=== PATIENT | male | born 1965 | race Caucasian/White ===

== ENCOUNTER 2018-03-17 18:11 | Inpatient (IN) ==
[2018-03-17] MEDS ORDERED: D50W SYRINGE ONE (18:42)
[2018-03-17] MEDS ORDERED: D50W SYRINGE IV ONE (18:50)
[2018-03-17] MEDS ORDERED: D5 NS 1,000 ML IV ONE (18:57)
[2018-03-17 19:14] LABS: BASO# 0.03 X1000 (0.0-0.2); BASO% 0.1 % (0.0-0.8); EOS# 0.03 X1000 (0.0-0.7); EOS% 0.1 % (0.0-10.0); HEMATOCRIT 24.2 % (42.0-52.0); IMM GRAN# 0.85 X1000 (0.0-0.04); IMM GRAN% 3.4 % (0.0-0.5); LYMPH# 3.25 X1000 (1.2-3.4); LYMPH% 13.1 % (20.5-51.1); MCH 27.6 PG (27-31); MCHC 33.1 g/dL (33-37); MCV 83.4 FL (81-99); MONO# 0.75 X1000 (0.11-0.59); MPV 8.9 FL (7.4-10.4); NEUT# 19.84 X1000 (1.4-6.5); NEUT% 80.3 % (42.2-75.2); PLT 339 X1000 (130-400); RDW 17.3 % (11.5-14.5); WBC 24.75 X1000 (4.8-10.8)
[2018-03-17] MEDS ORDERED: NS 1,000 ML ONE (19:26)
[2018-03-17 19:35] LABS: ANISOCYTOSIS 1+; BANDS 6 % (0-1); LYMPHS 19 % (21-51); MICROCYTOSIS OCCASIONAL; MONO 2 % (1-9); SEGS 73 % (42-75)
[2018-03-17] MEDS ORDERED: VANCOMYCIN 1 GM/NS 1 GM/250 ML IVPB IV ONE (19:40)
[2018-03-17] MEDS ORDERED: NS 1,000 ML IV ONE ×2 (19:55→20:18)
[2018-03-17 20:04] LABS: BASO# 0.01 X1000 (0.0-0.2); EOS# 0.02 X1000 (0.0-0.7); EOS% 0.1 % (0.0-10.0); HEMATOCRIT 21.7 % (42.0-52.0); HEMOGLOBIN 7.1 g/dL (14.0-18.0); IMM GRAN# 0.45 X1000 (0.0-0.04); LYMPH% 7.7 % (20.5-51.1); MCH 26.7 PG (27-31); MCHC 32.7 g/dL (33-37); MCV 81.6 FL (81-99); MONO# 0.66 X1000 (0.11-0.59); MPV 8.2 FL (7.4-10.4); NEUT# 19.32 X1000 (1.4-6.5); NEUT% 87.2 % (42.2-75.2); PLT 325 X1000 (130-400); RBC 2.66 XMIL (4.7-6.1); RDW 16.5 % (11.5-14.5); WBC 22.16 X1000 (4.8-10.8)
[2018-03-17 20:08] LABS: ALLEN TEST YES; BE -9.1 mmoll (-3.0-3.0); BLOOD TYPE ARTERIAL; HCO3-(ACT) 17.8 mmoll (20.0-26.0); METHB 1.1 % (0.0-1.5); O2(CT) 9.8 mL/dL (15.0-23.0); O2HB 94.7 % (95.0-99.0); PCO2(98.6) 22 mmHg (35-45); PO2(98.6) 110 mmHg (60-100); SAMPLE BLOOD; SAO2 95.8 % (95.0-100.0); THB 7.2 g/dL (11.5-17.4); pH(98.6) 7.42 (7.35-7.45)
[2018-03-17 20:09] LABS: INR 1.07; PROTIME 14.7 Seconds (11.0-16.0)
[2018-03-17 20:10] LABS: MODALITY CANNULA
[2018-03-17 20:10] LABS: PTT 45.8 Seconds (22.3-41.8)
[2018-03-17] MEDS: ZOSYN 3.375 GM in NS 50 ML IV SCH (20:15)
[2018-03-17 20:31] LABS: ALB/GLOB RATIO 0.6; ALBUMIN 1.9 g/dL (3.5-5.0); CALCIUM 7.9 mg/dL (8.8-10.2); CREATININE 2.2 mg/dL (0.7-1.2); POTASSIUM 4.3 mmol/L (3.5-5.1); TOTAL BILIRUBIN 0.18 mg/dL (0.20-1.00); TOTAL PROTEIN 5.1 g/dL (6.3-8.3)
--- NOTE | 2018-03-17 20:34 | Diag Imaging Result Doc PS360 ---
EXAM: CHEST-PORTABLE INDICATION: septic shock TECHNIQUE: One view COMPARISON: 07/22/2015 FINDINGS: Inspiration is slightly suboptimal. There are a few old rib fractures on the right. The lungs are grossly clear. There is no discrete pleural fluid collection or pneumothorax. The cardiomediastinal silhouette and central vasculature are grossly unremarkable. IMPRESSION: No evidence of acute pathology by plain radiograph. Electronically signed by Prince Shepherd 03/17/2018 8:31 PM
[2018-03-17 20:41] LABS: URINE SOURCE CATH
[2018-03-17 20:46] LABS: BILIRUBIN URINE NEGATIVE (NEGATIVE); BLOOD URINE TRACE (NEGATIVE); COLOR YELLOW; GLUCOSE URINE NEGATIVE (NEGATIVE); KETONE URINE NEGATIVE (NEGATIVE); LEUKOCYTES URINE NEGATIVE (NEGATIVE); NITRITE URINE NEGATIVE (NEGATIVE); PROTEIN URINE TRACE mg/dL (NEGATIVE); SP GRAVITY URINE 1.012; TURBIDITY URINE HAZY (CLEAR); UROBILINOGEN URINE NORMAL (NORMAL)
[2018-03-17 20:48] LABS: UR EPITHELIAL CELLS <10 /HPF (<10); URINE BACTERIA NEGATIVE /HPF; URINE RBC <10 /HPF (<10); URINE WBC <10 /HPF (<10)
--- NOTE | 2018-03-17 21:03 | PROVIDER DOCUMENTATION ---
This chart was entered by Che Gonzales Scribe, acting as scribe for Octavio Shea MD. HPI-General Adult - General Chief Complaint: Low Blood Sugar Stated Complaint: HYPOGYLCEMIA Time Seen by Provider: 03/17/18 19:35 Source: family Allergies/Adverse Reactions: Patient Allergies Allergy/AdvReac Type Severity Reaction Status Date / Time hydrocodone AdvReac Intermediate Unknown Verified 01/16/13 07:23 Home Medications: Home Medication List Medication Instructions Recorded Confirmed Last Taken Type Alprazolam [Xanax] 1 mg PO Q6H PRN PRN 07/11/12 07/11/12 01/15/13 19:00 History 1 Fenofibrate 160 mg PO DAILY 07/11/12 07/11/12 01/15/13 19:00 History 160 Omeprazole [Prilosec] 20 mg PO DAILY@0700 07/11/12 07/11/12 01/15/13 07:00 History 20 SIMVAstatin [Zocor] 80 mg PO QHS 07/11/12 07/11/12 01/15/13 19:00 History 80 Zolpidem [Ambien] 10 mg PO HS PRN PRN 07/11/12 07/11/12 07/10/12 History Aspirin 81 mg PO DAILY 07/12/12 07/12/12 01/09/13 History 81 Cholecalciferol (Vit D3) [Vitamin 5,000 unit PO DAILY 07/12/12 07/12/12 Unknown History D] Melatonin 3 mg PO QHS 07/12/12 07/12/12 Unknown History Multivitamin [Multi-Vitamin Daily] 1 each PO DAILY 07/12/12 07/12/12 01/15/13 07 :00 History 1 [place]-3 Fatty Acids [Fish Oil] 1,000 mg PO DAILY 07/12/12 07/12/12 Unknown History Phenobarbital 64.8 mg PO QHS 07/12/12 07/12/12 Unknown History Sertraline [Zoloft] 50 mg PO DAILY 07/12/12 07/12/12 01/15/13 19:00 History 50 Cinnamon Bark [Cinnamon] 500 mg PO DAILY 01/16/13 01/16/13 01/15/13 07:00 History 500 Psyllium Husk [Fiber Laxative] 1 tsp PO BID 01/16/13 01/16/13 01/15/13 07:00 History 1 - History of Present Illness -Gen Adult Nature of Presenting Problems: Pt is 52/m presenting to ED via EMS, has hx of brain abscess 7 yrs prior that left him unable to live or care for himself alone. His family is at bedside, reports that he started falling upon standing about 2 days prior, today he refused to eat and has become lethargic. Family called EMS and his blood sugar was 55. He is not at normal mentation and is in obvious pain per family. Location of Pain/Injury: reports: generalized, other (Pt is writhing in pain but cannot answer as to where at this time) Severity: reports: severe Onset/Duration: reports: this morning Timing: reports: still present Context/Activities at Onset: reports: none Modifying Factors: improves with: nothing Associated Symptoms: reports: weakness. denies: diarrhea, seizure, vomiting - Diabetes Related Context Context: reports: low blood sugar (55) Review of Systems - Adult - REVIEW OF SYSTEMS - ADULT ROS:: limited per condition Constitutional: denies: fever Eyes: reports: no symptoms reported Ears, Nose, Mouth & Throat: reports: no symptoms reported Cardiovascular: denies: edema Gastrointestinal: denies: diarrhea, vomiting Integumentary: reports: no symptoms reported Neurological: denies: tremors Psychiatric: reports: no symptoms reported Endocrine: reports: no symptoms reported Hematologic/Lymphatic: reports: no symptoms reported Allergic/Immunologic: reports: no symptoms reported All Other Systems: Reviewed and Negative Past History - Adult - PAST MEDICAL HISTORY-ADULT Review of Records: reports: Old Records Reviewed, Nursing Assessment Review, Medications Reviewed, Social history reviewed & non-contributory. - SOCIAL HISTORY Smoking: cigarettes, less than 1 pack/day Substance Use: none/never Alcohol Use Frequency: occasionally Living Situation: family Physical Exam-General - PHYSICAL EXAM-ADULT Initial Vital Signs Reviewed: Yes - CONSTITUTIONAL General Appearance: moderate distress, thin, lethargic - NECK Neck: non-tender, full range of motion, supple - RESPIRATORY Respiratory: lungs clear, normal breath sounds. negative: respiratory distress - CARDIOVASCULAR Cardiovascular: no edema, no gallop, no JVD, no murmur, tachycardia (106) - GASTROINTESTINAL (ABDOMEN) Abdominal Exam: normal bowel sounds, soft - LYMPHATIC Lymphatic: no adenopathy - MUSCULOSKELETAL Extremity: normal inspection - SKIN Integumentary: normal color, normal turgor, warm/dry - PSYCHIATRIC Psych/Mental Status: disoriented x 3, other (Pt is lethargic and writhing in bed , unable to answer questions and does not open eyes. reportedly not at normal mentation) Progress - PLAN OF CARE/RESULTS Progress/Plan/Lab Results: Vital Signs - 8 hr 03/17/18 18:56 Pulse Rate 106 H Respiratory Rate 18 Blood Pressure 127/54 O2 Sat by Pulse Oximetry 97 Laboratory Results - last 24 hr 03/17/18 03/17/18 03/17/18 18:34 18:45 18:55 WBC 24.75 H RBC 2.90 L Hgb 8.0 L Hct 24.2 L MCV 83.4 MCH 27.6 MCHC 33.1 RDW Std Deviation 17.3 H Plt Count 339 MPV 8.9 Immature Gran % (Auto) 3.4 H Neut % (Auto) 80.3 H Lymph % (Auto) 13.1 L Barton % (Auto) 3.0 Eos % (Auto) 0.1 Baso % (Auto) 0.1 Immature Gran # (Auto) 0.85 H Neut # (Auto) 19.84 H Lymph # (Auto) 3.25 Barton # (Auto) 0.75 H Eos # (Auto) 0.03 Baso # (Auto) 0.03 POC Glucose 34 L D 177 H D Orders Category Date Time Status Finger Stick Blood Sugar (ED) DIRECTED Care 03/17/18 18:51 Active Saline Loc NOW Care 03/17/18 18:52 Active Straight Catheterization ORDERED Care 03/17/18 18:[address] HEAD W/O CONTRAST [CT] Stat Exams 03/17/18 18:51 Ordered ABG [RESP] Routine Lab 03/17/18 18:52 Ordered BLOOD CULTURE [BLDCUL] Stat Lab 03/17/18 18:52 Ordered CBC WITH DIFF [HEME] Stat Lab 03/17/18 18:45 Results CBC WITH ELECTRONIC DIFF [HEME] Stat Lab 03/17/18 19:00 Ordered COMPREHENSIVE METABOLIC PANEL [CHEM] Stat Lab 03/17/18 18:53 Ordered COMPREHENSIVE METABOLIC PANEL [CHEM] Stat Lab 03/17/18 19:26 Ordered MAGNESIUM [CHEM] Stat Lab 03/17/18 19:00 Ordered PROTIME WITH INR [COAG] Stat Lab 03/17/18 19:00 Ordered PTT [COAG] Stat Lab 03/17/18 19:00 Ordered TROPONIN T Stat Lab 03/17/18 18:55 Ordered URINALYSIS W/POSS RFLX CULT [URINALYSIS] Stat Lab 03/17/18 18:55 Uncollected 0.9% Sodium Chloride Inj [Ns] 1,000 ml Med 03/17/18 19:26 Discontinued .ROUTE As Directed Dextrose 5%-0.9% NaCl Inj [D5 Ns] 1,000 ml Med 03/17/18 18:57 Active IV 150 mls/hr Dextrose 50% Syringe [D50w Syringe] Med 03/17/18 18:42 Discontinued 50 ml .ROUTE .STK-MED ONE Dextrose 50% Syringe [D50w Syringe] Med 03/17/18 18:50 Discontinued 50 ml IV NOW ONE EKG [EKG] Stat Ther 03/17/18 18:52 Ordered Result Diagrams: 03/17/18 19:39 03/17/18 19:39 - CONSULTS/PCP/HOSPITALIST Notification #1 *Consult/PCP/Hospitalist*: consult w/ Dr. Sorto, pt with be admited Time Discussed: 20:59 Consult Disposition: Will see in ED Departure - Departure Date of Disposition Decision: 03/17/18 Time of Disposition Decision: 21:02 DIAGNOSIS: Septic shock Disposition: ADMITTED INPATIENT 09 Certified Medical Emergency: Emergent Condition: Critical Referrals and Follow-Ups: Rama Gilliland MD [Primary Care Provider] - - Critical Care Note This patient required my direct & personal management of CC.: Yes Total Time (mins): 45 Critical Care Statement: This patient required my direct personal management to treat or rule out processes, the absence of which, could potentiallly result in sudden, clinically significant life or limb threatening deterioration. Attestation - Physician/ DAILY Attestation Patient care was provided by Advanced Practice Provider:: No The physician spent face to face time with patient:: Yes Advanced Practice Provider documentation review:: Supervising physician onsite and consulted in the evaluation and care of this patient. The physician did have a face to face encounter with the patient. This chart was documented by the indicated scribe, (Che Gonzales Scribe) and accurately reflects the services I performed and decisions made by me, Octavio Shea MD, as attested by the provider's signature.
[2018-03-17] MEDS ORDERED: VANCOMYCIN IV PER PHARMACY MISC SCH (23:50)
[2018-03-17] MEDS ORDERED: NS 1,000 ML IV SCH (23:50)
[2018-03-17] MEDS ORDERED: ZOSYN 3.375 GM in NS 50 ML IV SCH (23:50)
--- NOTE | 2018-03-18 01:42 | HISTORY AND PHYSICAL ---
PRIMARY CARE PHYSICIAN: Dr. Gilliland. CHIEF COMPLAINT: Altered mental status. HISTORY OF PRESENTING ILLNESS: A 52-year-old male with a history of brain abscess, hypertension, diabetes mellitus type 2 and hyperlipidemia, who was brought to the emergency department due to patient being altered and falling. Apparently, when emergency medical service arrived he was found that he was hypoglycemic. He was given D50 and brought to the emergency department. In the ED, he was evaluated. He continued to be altered and hypotensive. He had also elevated white blood cell count. It was suspected he was septic. Subsequently, he will require admission for further management. At the time of my examination, patient was moderately altered and most of the history is obtained from family member who denied he had any chest pain, shortness of breath, hemoptysis, melena, but thought that he was having some chills at home. PAST MEDICAL HISTORY: Includes brain abscess, hypertension, diabetes mellitus type 2, hyperlipidemia. PAST SURGICAL HISTORY: Brain surgery. ALLERGIES: Hydrocodone. CURRENT MEDICATIONS: As listed in the medication reconciliation sheet. SOCIAL HISTORY: Thirty-five pack years history of smoking. History of alcohol abuse in the past. No history of illicit drug use. FAMILY HISTORY: No history of coronary artery disease. REVIEW OF SYSTEMS: Limited due to patient being altered. PHYSICAL EXAMINATION: GENERAL: The patient is somewhat restless and altered. VITAL SIGNS: Pulse 110, respirations 36, blood pressure 127/54. HEENT: Atraumatic, normocephalic. NECK: No masses. CHEST: Clear to auscultation. CARDIOVASCULAR: Regular rate and rhythm. ABDOMEN: Soft. Positive bowel sounds. EXTREMITIES: No edema. NEUROLOGIC: He is altered. GENITOURINARY: No bladder distention. SKIN: Warm. LABORATORIES AND STUDIES: Sodium 137, potassium 4.3, chloride 103, CO2 is 14, BUN is 66, creatinine is 2.2. Glucose was initially 34, now 109. WBCs 24.75, hemoglobin 8.0, hematocrit 24.2, platelets 339,000. UA is negative for leukocytes. Chest x-ray, no evidence of any acute pathology. ASSESSMENT: A 52-year-old male with a history of brain abscess, hypertension, diabetes mellitus type 2 and hyperlipidemia, brought to the emergency department due to patient being altered. He was initially found to be hypoglycemic. He was given D50. He was brought to the emergency department where he was evaluated and it was thought that possibly he was septic. Subsequently, he will need admission for further management. 1. Altered mental status. 2. Sepsis. 3. Hypotension. 4. Acute kidney injury. 5. Diabetes mellitus type 2 with hyperglycemia. PLAN: 1. We will admit patient to ICU. 2. We will continue with neuro checks and still awaiting CT of the head. 3. We will check blood cultures. Start patient on IV antibiotics. 4. We will continue with IV fluids and start pressors as needed. 5. We will monitor his renal function closely. 6. We will monitor blood glucose closely. 7. Put patient on DVT prophylaxis with SCD. 8. I discussed with of the patient's family member that his condition is guarded. 9. We will continue to follow and reassess and make further recommendation based on patient's clinical course. cc: Maxwell Sorto MD MTDD
[2018-03-18] MEDS ORDERED: VANCOMYCIN 750 MG in NS 250 ML IV ONE (02:30)
[2018-03-18] MEDS: ZOSYN 3.375 GM in NS 50 ML IV SCH ×4 (02:45→19:28)
[2018-03-18] MEDS ORDERED: D5 NS 1,000 ML IV SCH ×2 (04:00→04:15)
[2018-03-18 06:18] LABS: HEMATOCRIT 22.2 % (42.0-52.0); HEMOGLOBIN 7.2 g/dL (14.0-18.0); MCH 27.5 PG (27-31); MCHC 32.4 g/dL (33-37); MCV 84.7 FL (81-99); MPV 8.9 FL (7.4-10.4); RBC 2.62 XMIL (4.7-6.1); RDW 17.2 % (11.5-14.5); WBC 16.31 X1000 (4.8-10.8)
[2018-03-18 06:36] LABS: CALCIUM 7.8 mg/dL (8.8-10.2); CREATININE 1.5 mg/dL (0.7-1.2); POTASSIUM 3.6 mmol/L (3.5-5.1)
--- NOTE | 2018-03-18 09:46 | Diag Imaging Result Doc PS360 ---
EXAM: CT HEAD W/O CONTRAST INDICATION: altered mental TECHNIQUE: This exam was performed using automated exposure control, adjustment of mA or kV according to patient size, and/or use of iterative reconstruction technique. COMPARISON: 07/11/2012 FINDINGS: There is stable left occipital encephalomalacia. There is minimal age-appropriate diffuse brain atrophy that may have advanced slightly during the interval. There is no definite acute infarct given the limited sensitivity of CT versus MRI. There is no discrete intracranial mass, mass effect, or intracranial hemorrhage. The surrounding soft tissues and bony structures are essentially unremarkable. IMPRESSION: Chronic appearing intracranial changes as described but no evidence of acute intracranial pathology. Electronically signed by Prince Shepherd 03/18/2018 9:44 AM
--- NOTE | 2018-03-18 15:48 | PROGRESS NOTE ---
DATE: 03/18/2018 SUBJECTIVE: Patient was admitted on 03/17/2018, yesterday. She is a patient of Rama Gilliland. This is a 52-year-old male, history of brain abscess, hypertension, diabetes mellitus type 2 and hyperlipidemia. Was brought into the emergency room due to the patient being altered and following apparently emergency room service. They found him hypoglycemic, given D50, brought to the emergency department. Continued to be altered, hypotension. He had an elevated white blood cell count and suspected sepsis. So, admitted him to ICU. He seems to be doing a little better. He still has to be reminded where he is and what the date is. PAST MEDICAL HISTORY: Includes brain abscess, hypertension, diabetes mellitus type 2, hyperlipidemia. He has had brain surgery. PHYSICAL EXAMINATION: Vital Signs: Today: Temperature 97.8, pulse 85, respirations 22, blood pressure 98/65. Eyes: Pupils are equal. No distended neck veins. Lungs: Clear in all lung arboleda. Cardiovascular: Regular rhythm and rate without murmur or S3. Abdomen: Soft. Skin: Warm and dry. Genitourinary: Urine output from yesterday was over 2 L. REVIEW OF LABS: White count was 22,160, repeat was 16,000. Hematocrit 21, hemoglobin 7.1, and that has been stable today. Electrolytes: 137, potassium 3.6, chloride 107, BUN 52, creatinine 1.5. Note that creatinine initially was 2.2. Sats improved. Urinalysis unremarkable. Blood gases from yesterday: PH was 7.42, pCO2 22, PO2 was 110. O2 sats 95%, that is on 28% FiO2. ASSESSMENT AND PLAN: 1. Altered mental status. Suspect sepsis. Continue IV antibiotics. Check blood cultures. Continue IV fluids. 2. Altered mental status. Metabolic encephalopathy. Appears to be global encephalopathy. Does have a history of brain abscess and so, but suspect this is multifactorial. 3. Appears to be what appear to be a little bit dry intravascularly, so gave some fluids. 4. Acute kidney injury. Appears to be improving with fluids. 5. Low blood sugars, so we will monitor those closely. 6. I am going to go ahead and feed him. He is hungry. Would like a diabetic diet. We are going to check T4 and TSH and magnesium, hemoglobin A1c in the morning, and a cortisol level in the morning as well. cc: Yash Cisneros MD
[2018-03-18] MEDS: D5 1/2 NS 1,000 ML IV SCH (16:45)
[2018-03-18 17:26] LABS: UR AMPHETAMINES QUAL NONE DETECTED (NONE DETECT); UR BARBITUATES QUAL NONE DETECTED (NONE DETECT); UR BENZODIAZEPIN QUAL PRESUMPTIVE POSITIVE (NONE DETECT); UR CANNABINOIDS QUAL NONE DETECTED (NONE DETECT); UR COCAINE QUAL NONE DETECTED (NONE DETECT); UR METHADONE QUAL NONE DETECTED (NONE DETECT); UR OPIATES QUAL NONE DETECTED (NONE DETECT); UR OXYCODONE QUAL NONE DETECTED (NONE DETECT); UR PCP QUAL NONE DETECTED (NONE DETECT)
[2018-03-18] MEDS: XANAX PO SCH (21:12)
[2018-03-18] MEDS: PHENOBARBITAL PO SCH (23:55)
[2018-03-19] MEDS: ZOSYN 3.375 GM in NS 50 ML IV SCH ×4 (01:03→19:33)
[2018-03-19] MEDS: VANCOMYCIN 1,250 MG in NS 250 ML IV SCH (03:09)
[2018-03-19] MEDS: D5 1/2 NS 1,000 ML IV SCH ×2 (04:01→15:28)
[2018-03-19 07:03] LABS: FREE T4 0.92 ng/dL (0.93-1.70); TSH 7.44 uIUmL (0.27-4.20)
--- NOTE | 2018-03-19 07:08 | Diag Imaging Result Doc PS360 ---
EXAM: CHEST-PORTABLE 03/19/2018 HISTORY: sepsis TECHNIQUE: AP portable at 0543 COMMENT: There is no evidence of acute cardiac or pulmonary disease. Compared to 03/17/2018 there has been no significant change. IMPRESSION: No evidence of acute disease. Electronically signed by Cristino Quinones 03/19/2018 7:06 AM
[2018-03-19] MEDS: XANAX PO SCH ×2 (09:05→21:21)
--- NOTE | 2018-03-19 09:45 | PROGRESS NOTE ---
DATE: 03/19/2018 SUBJECTIVE: Mr. Berg is awake and alert this morning. He did not remember what year it is, but he knows the month, he knows he is in the hospital. OBJECTIVE: Vitals: Temperature 97 degrees, pulse 68, respirations 18, blood pressure 93/54. Eyes: Pupils are equal and round. Lungs: Clear in all lung arbloeda. Cardiovascular: Regular rhythm and rate without murmur or S3. He reports that he had some left lower quadrant discomfort, which he has had for over a month. He has minimal tenderness down there, but he does note he has diverticulosis. URINE OUTPUT: 3600 mL. LABORATORY: Blood sugars 116, 71, 145. Review of his lab from yesterday, hematocrit 22, hemoglobin 7.2, blood sugars have been 128, 145. His thyroid looks like it is a little bit low with a T4 of 0.92, TSH is 7.44. IMAGING: Chest x-ray: No evidence of acute disease. ASSESSMENT AND PLAN: 1. Altered mental status. Suspected sepsis. Continue his antibiotics. Cultures with no growth from 11/15. 2. Altered mental status, metabolic encephalopathy or global encephalopathy. He does have a history of brain abscess, but suspect this is more medication related. I did put him back on his benzodiazepines. 3. He appears to be a little bit dry intravascularly, so continue fluids. 4. Acute kidney injury. I suspect this is prerenal. Continue fluids. We will check another basic metabolic profile today. 5. Low blood sugars. Appear to be acceptable range right now. 6. He is eating. I think we need to get Physical Therapy, try to get him up in a chair and assess how he is doing walking. 7. Currently he is on Xanax 0.25 mg b.i.d., D5 1/2 normal saline 85 mL an hour. Vancomycin 1250 mg IV daily, Zosyn 3.375 g q.6 hours. We will recheck a T4 and TSH later on in hospital course. cc: Yash Cisneros MD
[2018-03-19] MEDS: PHENOBARBITAL PO SCH (21:20)
[2018-03-20] MEDS: ZOSYN 3.375 GM in NS 50 ML IV SCH ×4 (01:18→19:19)
[2018-03-20] MEDS ORDERED: VANCOMYCIN 1,250 MG in NS 250 ML IV SCH (02:30)
[2018-03-20] MEDS: VANCOMYCIN 1,250 MG in NS 250 ML IV SCH (02:52)
[2018-03-20] MEDS: D5 1/2 NS 1,000 ML IV SCH ×2 (04:21→15:09)
[2018-03-20 05:45] LABS: BASO# 0.01 X1000 (0.0-0.2); BASO% 0.1 % (0.0-0.8); EOS# 0.09 X1000 (0.0-0.7); EOS% 0.9 % (0.0-10.0); HEMATOCRIT 23.8 % (42.0-52.0); HEMOGLOBIN 7.7 g/dL (14.0-18.0); IMM GRAN# 0.06 X1000 (0.0-0.04); IMM GRAN% 0.6 % (0.0-0.5); LYMPH# 2.23 X1000 (1.2-3.4); LYMPH% 21.3 % (20.5-51.1); MCH 26.7 PG (27-31); MCHC 32.4 g/dL (33-37); MCV 82.6 FL (81-99); MONO# 0.59 X1000 (0.11-0.59); MONO% 5.6 % (1.7-9.3); MPV 8.8 FL (7.4-10.4); NEUT# 7.48 X1000 (1.4-6.5); NEUT% 71.5 % (42.2-75.2); PLT 245 X1000 (130-400); RBC 2.88 XMIL (4.7-6.1); WBC 10.46 X1000 (4.8-10.8)
[2018-03-20 05:59] LABS: ESTIMATED GFR > 60
[2018-03-20 06:02] LABS: AGAP 12; BUN 28 mg/dL (8-22); CHLORIDE 112 mmol/L (98-107); COSMO 283; CREATININE 0.7 mg/dL (0.7-1.2); GLUCOSE 105 mg/dL (70-104); POTASSIUM 3.3 mmol/L (3.5-5.1); SODIUM 139 mmol/L (136-145); TCO2 15 mmol/L (25-35)
[2018-03-20] MEDS ORDERED: KLOR-CON PO ONE (06:10)
[2018-03-20 06:49] LABS: ALB/GLOB RATIO 0.4; ALBUMIN 1.5 g/dL (3.5-5.0); DIRECT BILIRUBIN 0.1 mg/dL (0.00-0.20); MAGNESIUM 1.3 mg/dL (1.5-2.7); PHOSPHORUS 3.1 mg/dL (2.7-4.5); TOTAL BILIRUBIN 0.21 mg/dL (0.20-1.00); TOTAL PROTEIN 4.9 g/dL (6.3-8.3)
[2018-03-20 07:08] LABS: C REACTIVE PROT QUANT 146.23 mg/L (0.00-5.00)
[2018-03-20] MEDS ORDERED: MAGNESIUM SULFATE 2 GM/S.W.I. 2 GM/50 ML IVPB IV ONE (08:04)
[2018-03-20] MEDS: XANAX PO SCH ×2 (08:25→21:33)
--- NOTE | 2018-03-20 12:10 | Diag Imaging Result Doc PS360 ---
EXAM: CT THORAX W/O CONTRAST 03/20/2018 HISTORY: dyspnea TECHNIQUE: This exam was performed using automated exposure control, adjustment of mA or kV according to patient size, and/or use of iterative reconstruction technique. COMMENT: There are no previous studies available for comparison. There is bilateral emphysematous change. There is bibasilar atelectasis versus pneumonia. This is associated with small pleural effusions. There is some platelike atelectasis or fibrosis in the inferior lingula. There are coronary calcifications. There is no evidence of significant adenopathy. There is a densely calcified gallstone in the gallbladder. IMPRESSION: COPD. Bilateral pleural effusions and basilar atelectasis versus pneumonia. Electronically signed by Cristino Quinones 03/20/2018 12:07 PM
--- NOTE | 2018-03-20 12:15 | Diag Imaging Result Doc PS360 ---
EXAM: CT ABD/PELVIS W/ORAL CONT ONLY 03/20/2018 HISTORY: abdominal pain TECHNIQUE: This exam was performed using automated exposure control, adjustment of mA or kV according to patient size, and/or use of iterative reconstruction technique. COMMENT: There are no previous studies available for comparison. There is ascites. There is a densely calcified gallstone in the gallbladder measuring over 1.5 cm in diameter. There are a few tiny calyceal stones in the left kidney. There is gas and fluid throughout much of the colon and small bowel. There is no evidence of abdominal aortic aneurysm. There is infrarenal retroperitoneal adenopathy with one node on image 59 measuring almost 11 mm in greatest dimension. There is stranding in the fat particularly over the left anterior pelvis. This is apparently associated with an obstructing mass in the distal descending colon. Some stool and gas are seen below this level in the rectum. There is a Reveles catheter in the bladder which is not distended. Some ascites extends into the internal inguinal rings bilaterally. There are changes in both femoral heads suggesting previous ischemic necrosis. There is no evidence of acute bony disease otherwise. IMPRESSION: Obstructing lesion in the distal descending colon which may be associated with peritoneal carcinomatosis and malignant ascites. Cholelithiasis. Electronically signed by Cristino Quinones 03/20/2018 12:12 PM
[2018-03-20] MEDS: ZOFRAN IV PRN (13:34)
[2018-03-20] MEDS: DUONEB (A & A) INH SCH ×2 (15:44→21:00)
[2018-03-20] MEDS: LEVOPHED 8 MG in D5 1/2 NS 250 ML IV SCH (17:35)
--- NOTE | 2018-03-20 20:00 | GENERAL SURGERY CONSULTATION ---
DATE: 03/20/2018 HISTORY OF PRESENT ILLNESS: This is a 52-year-old gentleman who has a history of an intracerebral abscess that was treated surgically in 2009. It left him with somewhat of a cognitive deficit and physical disability. He lives with his mother. He was in his usual state of health until 24 hours ago, when she had a hard time waking him up from bed and found him down on the floor upon trying to wake him. He was brought to the emergency room, where he was found to be hypoglycemic. He had significant electrolyte derangements and anemia. He had been in the ICU and resuscitated. His renal function normalized. His electrolytes are correcting, and he has overall perked up. During his workup he had a CT scan that showed a descending colon mass that was near obstructing, with changes consistent with possible carcinomatosis. Per the mother, there was no history of GI complaints or bleeding. He has never had a colonoscopy. No colon cancer in the family. PAST MEDICAL HISTORY: 1. Brain abscess. 2. Hypertension. 3. Diabetes. 4. Hyperlipidemia. PAST SURGICAL HISTORY: He has had craniotomies. SOCIAL HISTORY: Heavy smoking, 35 pack years. History of alcohol abuse. Occasional alcohol currently. FAMILY HISTORY: Breast cancer and coronary disease. REVIEW OF SYSTEMS: Ten-point negative. PHYSICAL EXAMINATION: VITAL SIGNS: Temperature is 96.9. Pulse is in the 70s. Systolic blood pressure has been in the 80s to low 100s. Oxygen saturation is in the high 90s. GENERAL: He is arousable but somnolent, somewhat conversant. HEENT: No scleral icterus. CARDIOVASCULAR: Normal rate. PULMONARY: No increased work of breathing ABDOMEN: Soft. There is some tenderness in the left lower quadrant but no peritonitis. INTEGUMENT: Warm and dry without jaundice. PSYCHIATRIC: Somewhat of a flat affect. NEUROLOGIC: Generalized slowing. PERIPHERAL VASCULAR: Trace lower extremity edema but otherwise well perfused. LYMPHATIC: I do not feel any cervical, axillary or inguinal adenopathy. LABORATORY DATA: White count is 10, hematocrit 23. Creatinine is 0.7. Potassium is low at 3.3. Glucose has been 100s to 150. CEA is 9. UDS is positive for benzodiazepines. I reviewed CT scans, CT of the chest and CT and of the head. ASSESSMENT/PLAN: This is a 52-year-old gentleman with a descending colon mass. Most likely this is metastatic colon carcinoma, I have discussed these findings with his mother. I suspect that he ultimately will require resection, given his anemia; however, it would be beneficial to have a colonoscopy to determine exactly what this lesion has. I would minimize his p.o. intake. I think he is not completely obstructed, but it is most likely is impending, based off his CT scan. He continues to have bowel function. Ideally we could perform a flexible sigmoidoscopy tomorrow, if not a colonoscopy, and plan for surgery later this week. cc: Randi Velasquez MD
[2018-03-20] MEDS: PHENOBARBITAL PO SCH (21:34)
--- NOTE | 2018-03-20 22:28 | ECHO REPORT ---
ORDER DATE: 03/20/2018 INDICATION: Hypotension, diabetes, hyperlipidemia. FINDINGS: 1. The right atrium appears normal in size at 3 cm. 2. There is mild tricuspid regurgitation. RV systolic pressure 27. 3. Right ventricle appears to have normal systolic function. On some views, it does appear to be mildly enlarged. 4. No significant pulmonic insufficiency. 5. Normal left atrial size at 3.8 cm. 6. No mitral valve prolapse. Mild mitral regurgitation. 7. Normal LV size, end-diastolic dimension of 5.5 cm. Normal wall thicknesses with a posterior and interventricular septal wall thickness of 1.1 cm each. Normal LV systolic function. Estimated EF of 65% with normal wall motion. 8. Aortic valve opens well. No evidence of stenosis or insufficiency. The valve is trileaflet. 9. Aorta appears normal in visualized segments. 10. No pericardial effusion seen. cc: MD Terrie Rizo MD
--- NOTE | 2018-03-20 23:56 | PROGRESS NOTE ---
DATE: 03/20/2018 SUBJECTIVE: The patient complains of abdominal pain and nausea. OBJECTIVE: Vital Signs: Temperature 98.6 degrees, blood pressure 99/56, heart rate 91, respirations 18, oxygen saturation 95% on room air. Urine output 690. General: This is a chronically ill-appearing male, lying in bed, in no acute distress. Heart: S1, S2 normal. Regular rate and rhythm. Lungs: Clear to auscultation bilaterally. Diminished breath sounds at the bases. Abdomen: Positive bowel sounds. Diffuse tenderness. Extremities: No edema. No cyanosis. Neurologic: The patient is alert and oriented x3. LABS: White blood cell count 10, hemoglobin 7.7, hematocrit 23, platelets 245,000. Sodium 139, potassium 3.3, chloride 112, CO2 15, BUN 28, creatinine 0.7 glucose 150. Magnesium 1.3, calcium 8, albumin 1.5, lipase 662. ASSESSMENT AND PLAN: 1. Obstructing colonic lesion. We will consult with GI and General Surgery. 2. Hypotension. We will continue with IV fluids and pressor support to maintain a MAP of 65. So far, the blood cultures are negative. The chest CT does show basilar atelectasis versus pneumonia. We will continue with broad-spectrum antibiotic coverage. 3. Severe protein calorie malnutrition. Will consult with the dietitian. 4. Anxiety disorder. Continue on Xanax. 5. Anemia. Will check iron studies. 6. Gastrointestinal prophylaxis. Continue on IV Protonix. 7. Deep vein thrombosis prophylaxis. Continue with SCDs. cc: Terrie Figueroa MD
[2018-03-21] MEDS: LEVOPHED 8 MG in D5 1/2 NS 250 ML IV SCH ×4 (00:47→19:57)
[2018-03-21] MEDS: ZOSYN 3.375 GM in NS 50 ML IV SCH ×4 (02:35→19:57)
[2018-03-21] MEDS: DUONEB (A & A) INH SCH ×4 (03:00→23:57)
[2018-03-21] MEDS: D5 1/2 NS 1,000 ML IV SCH ×2 (03:53→14:50)
[2018-03-21] MEDS: PROTONIX IV SCH (06:10)
[2018-03-21] MEDS: SODIUM CHLORIDE 0.9% INJ SCH (06:10)
[2018-03-21] MEDS: MORPHINE IV PRN ×2 (06:11→10:45)
[2018-03-21 06:17] LABS: BASO# 0.01 X1000 (0.0-0.2); BASO% 0.1 % (0.0-0.8); EOS# 0.05 X1000 (0.0-0.7); EOS% 0.4 % (0.0-10.0); HEMATOCRIT 22.9 % (42.0-52.0); HEMOGLOBIN 7.4 g/dL (14.0-18.0); IMM GRAN# 0.08 X1000 (0.0-0.04); IMM GRAN% 0.6 % (0.0-0.5); LYMPH# 3.35 X1000 (1.2-3.4); LYMPH% 23.8 % (20.5-51.1); MCH 26.7 PG (27-31); MCHC 32.3 g/dL (33-37); MCV 82.7 FL (81-99); MONO# 0.76 X1000 (0.11-0.59); MONO% 5.4 % (1.7-9.3); MPV 8.4 FL (7.4-10.4); NEUT# 9.81 X1000 (1.4-6.5); NEUT% 69.7 % (42.2-75.2); PLT 224 X1000 (130-400); RBC 2.77 XMIL (4.7-6.1); RDW 17.1 % (11.5-14.5); RETIC% 1.76 % (0.8-2.1); RETIC-HE 28.2 PG (28.2-36.6); WBC 14.06 X1000 (4.8-10.8)
[2018-03-21 06:20] LABS: HEMOGLOBIN A1C 6.7 % (4.8-6.0)
[2018-03-21 06:59] LABS: AGAP 13; ALB/GLOB RATIO 0.5; ALBUMIN 1.8 g/dL (3.5-5.0); ALKALINE PHOSPHATASE 130 U/L (32-122); BUN 23 mg/dL (8-22); CALCIUM 7.8 mg/dL (8.8-10.2); CHLORIDE 110 mmol/L (98-107); COSMO 289; CREATININE 0.8 mg/dL (0.7-1.2); ESTIMATED GFR > 60; GLUCOSE 198 mg/dL (70-104); GOT 24 U/L (10-34); GPT 26 U/L (10-44); PHOSPHORUS 3.5 mg/dL (2.7-4.5); POTASSIUM 3.3 mmol/L (3.5-5.1); SODIUM 140 mmol/L (136-145); TCO2 17 mmol/L (25-35); TOTAL BILIRUBIN 0.18 mg/dL (0.20-1.00); TOTAL PROTEIN 5.2 g/dL (6.3-8.3)
[2018-03-21 07:05] LABS: MAGNESIUM 1.6 mg/dL (1.5-2.7)
[2018-03-21] MEDS ORDERED: POTASSIUM CHLORIDE 60 MEQ in NS 500 ML IV ONE (07:12)
[2018-03-21] MEDS ORDERED: MAGNESIUM SULFATE 2 GM/S.W.I. 2 GM/50 ML IVPB IV ONE (07:13)
--- NOTE | 2018-03-21 07:48 | Diag Imaging Result Doc PS360 ---
EXAM: ABDOMEN FLAT/UPRIGHT INDICATION: abdominal pain TECHNIQUE: 2 views COMPARISON: None. FINDINGS: There are multiple gas-distended loops of small bowel consistent with obstruction. This was also seen on a recent CT. No definite large volume free abdominal gas is identified. IMPRESSION: Small bowel obstruction. Electronically signed by Prince Shepherd 03/21/2018 7:46 AM
[2018-03-21] MEDS: XANAX PO SCH ×3 (08:00→22:59)
--- NOTE | 2018-03-21 10:20 | Diag Imaging Result Doc PS360 ---
BARIUM ENEMA - 03/21/2018 INDICATION: possible colon tumor TECHNIQUE: Water-soluble contrast enema. Total fluoroscopy time was one minute 47 seconds. 24 images were obtained. COMPARISON: Abdomen x-rays and CT FINDINGS: On the accounting manager assistant controller exam, there is diffuse hyperinflation of the small bowel and colon stable from prior. There is a high-grade stricture at the mid sigmoid colon in the region of the known, large colon mass. This causes severe obstruction and proximal dilation of the majority of the colon and all of the small bowel. Remainder of the colon is normal. IMPRESSION: Large obstructing sigmoid colon cancer. Electronically signed by Isaias Starr 03/21/2018 10:18 AM
[2018-03-21] MEDS: NICODERM PATCH TD SCH (10:56)
[2018-03-21] MEDS: VANCOMYCIN 1,250 MG in NS 250 ML IV SCH (14:48)
[2018-03-21] MEDS: HUMULIN R SUBQ SCH ×2 (16:01→21:40)
[2018-03-21 16:48] LABS: MAGNESIUM 1.9 mg/dL (1.5-2.7); POTASSIUM 4.4 mmol/L (3.5-5.1)
--- NOTE | 2018-03-21 19:25 | PROGRESS NOTE ---
DATE: 03/21/2018 SUBJECTIVE: The patient is resting comfortably in bed. He complains of some mild abdominal discomfort mainly in the lower quadrant. OBJECTIVE: Vital Signs: Temperature 98.4 degrees, blood pressure 99/62, heart rate 73, respirations 12, O2 saturation 98% on room air. General: This is a chronically ill-appearing elderly male lying in bed in no acute distress. Heart: S1, S2 normal. Regular rate and rhythm. Lungs: Equal air entry bilaterally. No crackles. No rales. Abdomen: Positive bowel sounds. Soft, tenderness in the lower quadrant. No rebound. Extremities: 2+ edema in the right upper extremity. No edema in the lower extremities. Neurologic: The patient is alert and oriented x3. LABORATORY DATA: White blood cell count 14, hemoglobin 7.4, hematocrit 22, platelets 224,000. Sodium 140, potassium 3.3, chloride 110, CO2 17, BUN 23, creatinine 0.8, glucose 198. Hemoglobin A1c 6.7, calcium 7.8, magnesium 1.6, iron 14, percent saturation 10. albumin 1.8. ASSESSMENT AND PLAN: 1. Obstructing colonic mass with a high-grade stricture. The case was discussed with Dr. Velasquez. The patient will likely need a sigmoidoscopy and will likely require resection. We will await further recommendations from GI. The patient is on a clear liquid diet at this time. 2. Hypotension. We will attempt to try and wean the patient off of pressor support. We will also continue with broad-spectrum antibiotics. So far, the blood cultures remain negative. 3. Diabetes mellitus type 2. We will place the patient on sliding scale insulin. 4. Iron deficiency anemia. This is likely secondary to the colon mass that the patient has. The patient need iron supplementation. 5. Anxiety disorder. Continue on Xanax. 6. Severe protein calorie malnutrition. The patient is currently on a clear liquid diet pending further diagnostic procedures. 7. Hypokalemia. We will replace the patient's potassium. 8. Metabolic acidosis. Slowly improving. We will continue to monitor for improvement. 9. Acute kidney injury. Resolved. 10. Deep vein thrombosis prophylaxis. Continue with sequential compression device. Withhold heparin due to the patient's iron deficiency anemia. cc: Terrie Figueroa MD [facility]
[2018-03-21] MEDS: ZOFRAN IV PRN (21:10)
[2018-03-21] MEDS: PHENOBARBITAL PO SCH (22:54)
[2018-03-22] MEDS: ZOSYN 3.375 GM in NS 50 ML IV SCH ×4 (01:46→19:44)
[2018-03-22] MEDS: DUONEB (A & A) INH SCH ×4 (03:40→21:00)
--- NOTE | 2018-03-22 04:06 | CONSULTATION ---
DATE OF CONSULTATION: 03/21/2018 REASON FOR CONSULTATION: Abnormal CT scan showing a colon mass, possibly obstructing, with changes consistent of possible carcinomatosis. HISTORY OF PRESENT ILLNESS: This is a 52-year-old male who came in with confusion. Patient has a history of intracerebral abscess that was treated in 2009. He does have issues of cognitive dysfunction and disability, and lives with his mother. On initial examination, the patient was drowsy but was able to assist with some information. I went back at a later time and his mother was there at the bedside. They report symptom onset over the last 24 hours where he was drowsy and mother had a hard time waking him up. He had fallen. Came in to the emergency room and was found to be hypoglycemic. He also had electrolyte imbalance and anemia. He also had elevated white blood cell count. On further evaluation, he was found to have an abnormal CT scan that showed an obstructive lesion in the distal descending colon that may be associated with peritoneal carcinomatosis and malignant ascites, cholelithiasis. Patient has also been evaluated by Dr. Velasquez with [facility]. We had ordered a barium enema today that showed a high-grade stricture at the mid sigmoid colon causing severe obstruction and proximal dilation of the majority of the colon and all of the small bowel. The patient has been seen in our office in the past. Looking at his records, his last colonoscopy was in 2012, which showed diverticulosis with no evidence of colon polyps. He had a previous colonoscopy in 2005 with colon polyps and was recommended at that time to have a followup colonoscopy in 3 years. The colonoscopy in 2013 did not show evidence of colon polyps. Patient reports onset over the last 6 months of diarrhea. He had denied any visible blood in the stool or black stools. PAST MEDICAL HISTORY: Brain abscess, hypertension, diabetes type 2, hyperlipidemia. PAST SURGICAL HISTORY: Brain surgery. ALLERGIES: Hydrocodone, unknown reaction. HOME MEDICATIONS: Xanax every 6 hours as needed, aspirin 81 mg daily, vitamin D 5000 units daily, cinnamon 500 mg daily, fenofibrate 160 mg daily, melatonin 3 mg every night, multivitamin daily, fish oil 1000 mg daily, Prilosec 20 mg daily, phenobarbital 64.8 mg every night , psyllium 1 teaspoon twice daily, Zoloft 50 mg daily, Zocor 80 mg every night, Ambien 10 mg every night as needed. SOCIAL HISTORY: Positive for tobacco use. History of alcohol use in the past. He currently lives with his mother. REVIEW OF SYSTEMS: Per history of present illness. PHYSICAL EXAMINATION: Vital Signs: Temperature 98.0 degrees, pulse 77, respirations 22, blood pressure 94/60. General: The patient is drowsy but does respond to questions. He is alert and oriented. HEENT: Normocephalic and atraumatic. Pupils equal, round, and reactive to light. Sclerae are nonicteric. Respiratory: Lung sounds essentially clear. Abdomen: Some tenderness with palpation. Otherwise, positive bowel sounds. Extremities: No lower extremity edema noted. DIAGNOSTIC RESULTS: Hematology: WBC 14.06, hemoglobin 7.4, hematocrit 22.9, MCV 82.7, platelets 224,000. Coagulation: Prothrombin time 14.7, INR 1.07, PTT 45.8. Chemistry: Sodium 140, potassium 3.3, chloride 110, CO2 17, BUN 23, creatinine 0.8, glucose 198. Total bilirubin 0.18, AST 24, ALT 26, alkaline phosphatase 130. ASSESSMENT AND PLAN: 1. Recent altered mental status. 2. Hypotension, elevated WBC count. 3. Abnormal findings on CT scan showing an obstructive colon lesion. Will continue to follow. Dr. Astorga will be speaking with Dr. Velasquez on the plan of care. Further plans will be made as needed. I have discussed this case with Dr. Astorga. Thank you for this consultation. Dictated by DENISE Winter for Kranthi Astorga MD cc: DENISE Jarrett MD [facility]
[2018-03-22] MEDS: D5 1/2 NS 1,000 ML IV SCH (04:17)
[2018-03-22] MEDS: MORPHINE IV PRN ×3 (04:17→12:53)
--- NOTE | 2018-03-22 05:02 | GENERAL SURGERY PROGRESS NOTE ---
DATE: 03/21/2018 SUBJECTIVE: Feels better this morning. He is more alert. No fevers, no tachycardia overnight. Blood pressure has been okay, low 100s up to a systolic to 130s. OBJECTIVE: General: He is more alert. Cardiovascular: Normal rate. Pulmonary: No increased work of breathing. Abdomen: Soft. Mild tenderness in the left lower quadrant, but no peritonitis. LABORATORY DATA: White count is 14, hematocrit 22. Potassium is better at 4.4, creatinine 0.5. He has had a barium enema that shows near obstructing sigmoid colon cancer. ASSESSMENT AND PLAN: This is a 52-year-old gentleman with am obstructing colon mass and findings concerning for carcinomatosis. He is partially obstructed related to this. I have discussed these findings with the patient. I think given this, in the next 24 to 48 hours, we need to proceed with sigmoid colectomy. Plan for Monday to give him more time for medical optimization. It is okay for him to have clear liquids. I do not think he could completely obstructed but this is impending, and he also has had some degree of bleeding from this. His electrolytes are improving. We will continue to follow along. cc: Randi Velasquez MD
[2018-03-22 05:55] LABS: BASO# 0.01 X1000 (0.0-0.2); BASO% 0.1 % (0.0-0.8); EOS# 0.08 X1000 (0.0-0.7); EOS% 0.6 % (0.0-10.0); HEMATOCRIT 21.7 % (42.0-52.0); HEMOGLOBIN 6.9 g/dL (14.0-18.0); IMM GRAN# 0.08 X1000 (0.0-0.04); IMM GRAN% 0.6 % (0.0-0.5); LYMPH# 2.96 X1000 (1.2-3.4); LYMPH% 23.3 % (20.5-51.1); MCH 26.7 PG (27-31); MCHC 31.8 g/dL (33-37); MCV 84.1 FL (81-99); MONO# 0.58 X1000 (0.11-0.59); MONO% 4.6 % (1.7-9.3); MPV 8.7 FL (7.4-10.4); NEUT# 8.97 X1000 (1.4-6.5); NEUT% 70.8 % (42.2-75.2); PLT 207 X1000 (130-400); RBC 2.58 XMIL (4.7-6.1); RDW 17.3 % (11.5-14.5); WBC 12.68 X1000 (4.8-10.8)
[2018-03-22 06:13] LABS: AGAP 10; ALB/GLOB RATIO 0.6; ALBUMIN 1.8 g/dL (3.5-5.0); ALKALINE PHOSPHATASE 109 U/L (32-122); BUN 13 mg/dL (8-22); CALCIUM 8.1 mg/dL (8.8-10.2); CHLORIDE 111 mmol/L (98-107); COSMO 277; CREATININE 0.7 mg/dL (0.7-1.2); ESTIMATED GFR > 60; GLUCOSE 162 mg/dL (70-104); GOT 15 U/L (10-34); GPT 22 U/L (10-44); POTASSIUM 3.9 mmol/L (3.5-5.1); SODIUM 137 mmol/L (136-145); TCO2 16 mmol/L (25-35); TOTAL BILIRUBIN 0.15 mg/dL (0.20-1.00)
[2018-03-22] MEDS: PROTONIX IV SCH (06:28)
[2018-03-22] MEDS: SODIUM CHLORIDE 0.9% INJ SCH (06:28)
[2018-03-22] MEDS: HUMULIN R SUBQ SCH ×4 (06:31→20:40)
[2018-03-22] MEDS ORDERED: MAGNESIUM SULFATE 2 GM/S.W.I. 2 GM/50 ML IVPB IV ONE (07:00)
[2018-03-22] MEDS: ZOFRAN IV PRN ×3 (07:32→23:37)
[2018-03-22] MEDS: NICODERM PATCH TD SCH (08:21)
[2018-03-22] MEDS: XANAX PO SCH (08:21)
[2018-03-22 09:24] LABS: INR 1.05; PROTIME 14.6 Seconds (11.0-16.0)
[2018-03-22] MEDS: LEVOPHED 8 MG in D5 1/2 NS 250 ML IV SCH (09:30)
[2018-03-22] MEDS ORDERED: NS 250 ML ONE (11:28)
--- NOTE | 2018-03-22 13:35 | GENERAL SURGERY PROGRESS NOTE ---
DATE: 03/22/2018 SUBJECTIVE: He is more alert. He said he is passing gas overnight. He has not had a bowel movement. Occasional nausea. No fevers. OBJECTIVE: Pulse 79, blood pressure 114/64, but he is on low-dose Levophed. General: He is alert. Cardiovascular: Normal rate. Abdomen is soft, nontender, nondistended. White count 12, hematocrit is 21. Creatinine 0.7. Potassium 3.9. No new imaging other than a barium enema that shows an apple core lesion in the sigmoid colon. ASSESSMENT AND PLAN: This is a 52-year-old gentleman who has a near obstructing colon cancer, sigmoid colon. I have discussed these findings of his imaging with the patient. There is the possibility that this is metastatic. Given that he is most likely bleeding from this chronically and is near obstructing, I have recommended sigmoid colectomy with end- colostomy. He is on low- dose Levophed. He has been transfused today. I suspect that this is mostly volume in etiology and, hopefully, we can get him off the pressors prior to surgery tomorrow; however, given the impending obstruction, I do think that this warrants urgent evaluation, and we may have to deal with his clinical condition intraoperatively. I discussed the risk of bleeding , infection, anastomotic leak, and the high probability of needing a colostomy with the patient and the possibility that he may require adjuvant chemotherapy in the future. He understands all this and consents. I have him on the schedule for tomorrow. cc: MD NIRMALA Taylor
--- NOTE | 2018-03-22 15:36 | PROGRESS NOTE ---
DATE: 03/22/2018 SUBJECTIVE: The patient is resting comfortably in bed. He states that he is still having abdominal pain, but it is controlled with pain medication. OBJECTIVE: Vital Signs: Temperature 98.1 degrees, blood pressure 100/67, heart rate 78, respirations 12, O2 saturation 98% on room air. General: This is an elderly male lying in bed, in no acute distress. HEENT: Head normocephalic and atraumatic. Heart: S1 and S2 normal. Regular rate and rhythm. Lungs: Equal air entry bilaterally. No crackles, no rales. Abdomen: Positive bowel sounds. Soft. Diffuse tenderness. Extremities: 1+ edema in the upper extremities. No edema in the lower extremities. Neurologic: The patient is alert and oriented x3. No focal neurologic deficits noted. LABORATORY DATA: White blood cell count 12, hemoglobin 6.9, hematocrit 21, platelets 207,000. Sodium 137, potassium 3.9, chloride 111, CO2 16, BUN 13, creatinine 0.7, glucose 162, magnesium 1.6, calcium 8.9. ASSESSMENT AND PLAN: 1. Obstructing colonic mass with a high-grade stricture. This is suspicious for colon cancer. The patient is scheduled to undergo surgery tomorrow. 2. Hypotension. We will try and wean the patient off of the Levophed drip. 3. Diabetes mellitus type 2. Continue on sliding scale insulin. 4. Iron deficiency anemia. Aware. The patient will likely require iron infusions. In the meantime, the patient will receive 2 units of packed red blood cells today in anticipation of surgery tomorrow. 5. Anxiety disorder. Continue on Xanax. 6. Severe protein-calorie malnutrition. Aware. 7. Hypomagnesemia. Will replace the patient's magnesium. 8. Metabolic acidosis. Will continue to monitor this closely. 9. Gastrointestinal prophylaxis. Continue on intravenous Protonix. cc: Terrie Figuerao MD
[2018-03-22] MEDS ORDERED: AMBIEN PO PRN (17:23)
[2018-03-22 18:18] LABS: HEMATOCRIT 31.4 % (42.0-52.0); HEMOGLOBIN 10.2 g/dL (14.0-18.0)
[2018-03-22] MEDS: XANAX PO PRN (21:37)
[2018-03-23] MEDS: VANCOMYCIN 1,250 MG in NS 250 ML IV SCH (02:22)
[2018-03-23] MEDS: ZOSYN 3.375 GM in NS 50 ML IV SCH ×4 (02:22→19:38)
[2018-03-23] MEDS: XANAX PO PRN (03:15)
[2018-03-23] MEDS: DUONEB (A & A) INH SCH ×4 (03:53→22:03)
[2018-03-23] MEDS: ZOFRAN IV PRN (04:40)
[2018-03-23] MEDS: MORPHINE IV PRN ×2 (04:40→15:38)
[2018-03-23 06:17] LABS: AGAP 12; ALB/GLOB RATIO 0.6; ALBUMIN 1.8 g/dL (3.5-5.0); ALKALINE PHOSPHATASE 113 U/L (32-122); BUN 10 mg/dL (8-22); CALCIUM 8.4 mg/dL (8.8-10.2); CHLORIDE 109 mmol/L (98-107); COSMO 274; CREATININE 0.8 mg/dL (0.7-1.2); ESTIMATED GFR > 60; GLUCOSE 92 mg/dL (70-104); GOT 16 U/L (10-34); GPT 23 U/L (10-44); POTASSIUM 4.2 mmol/L (3.5-5.1); SODIUM 138 mmol/L (136-145); TCO2 17 mmol/L (25-35); TOTAL BILIRUBIN 0.34 mg/dL (0.20-1.00); TOTAL PROTEIN 4.9 g/dL (6.3-8.3)
[2018-03-23] MEDS: PROTONIX IV SCH (07:48)
[2018-03-23] MEDS: HUMULIN R SUBQ SCH ×4 (07:48→20:42)
[2018-03-23] MEDS: SODIUM CHLORIDE 0.9% INJ SCH (07:49)
[2018-03-23] MEDS ORDERED: MAGNESIUM SULFATE 2 GM/S.W.I. 2 GM/50 ML IVPB IV ONE (08:00)
[2018-03-23] MEDS ORDERED: ATIVAN IV PRN (08:06)
[2018-03-23 08:33] LABS: BASO# 0.01 X1000 (0.0-0.2); BASO% 0.1 % (0.0-0.8); HEMATOCRIT 29.3 % (42.0-52.0); HEMOGLOBIN 9.6 g/dL (14.0-18.0); IMM GRAN# 0.03 X1000 (0.0-0.04); IMM GRAN% 0.3 % (0.0-0.5); MCH 27.7 PG (27-31); MCHC 32.8 g/dL (33-37); MCV 84.4 FL (81-99); MONO# 0.56 X1000 (0.11-0.59); MONO% 5.9 % (1.7-9.3); MPV 8.8 FL (7.4-10.4); NEUT# 6.83 X1000 (1.4-6.5); NEUT% 71.7 % (42.2-75.2); PLT 151 X1000 (130-400); RBC 3.47 XMIL (4.7-6.1); RDW 16.4 % (11.5-14.5); WBC 9.53 X1000 (4.8-10.8)
[2018-03-23 08:40] LABS: MAGNESIUM 1.8 mg/dL (1.5-2.7); PHOSPHORUS 4.4 mg/dL (2.7-4.5)
[2018-03-23] MEDS: NICODERM PATCH TD SCH (08:46)
[2018-03-23 08:47] LABS: INR 1.03; PROTIME 14.3 Seconds (11.0-16.0)
[2018-03-23] MEDS ORDERED: DIPRIVAN 1% ONE (08:55)
[2018-03-23] MEDS ORDERED: NORCURON ONE (08:56)
[2018-03-23] MEDS ORDERED: XYLOCAINE-MPF 2% ONE (08:56)
[2018-03-23] MEDS ORDERED: SODIUM CHLORIDE 0.9% 10 ML ONE (08:56)
[2018-03-23] MEDS ORDERED: QUELICIN (DOSE) ONE (08:56)
--- NOTE | 2018-03-23 09:52 | HEMO/ONC CONSULTATION ---
DATE: 03/23/2018 CHIEF COMPLAINT: We are consulted for further management and evaluation for patient with possible colon cancer. HISTORY OF PRESENT ILLNESS: Mr. Berg is a 52-year-old male who presented to the emergency department on 03/17. Patient was brought to the emergency department by family who says he has been vomiting for about 2 days, refusing to eat, not completely oriented, slightly confused. He was brought to the emergency department. He was found to be hypoglycemic. He was noted to be altered and hypotensive. The patient had an elevated white blood cell count as well. He was admitted at that time for further evaluation and management. This patient has been admitted. He had a CT of the head and pelvic which shows an obstructing lesion in the distal descending colon which may be associated with peritoneal carcinomatosis and ascites. PAST MEDICAL HISTORY: 1. Brain abscess. 2. Hypertension. 3. Diabetes mellitus type 2. 4. Hyperlipidemia. PAST SURGICAL HISTORY: Brain surgery. SOCIAL HISTORY: 35 pack year history of smoking. Denies any alcohol or illicit drug use. FAMILY HISTORY: Noncontributory. ALLERGIES: Hydrocodone. HOME MEDICATIONS: 1. Xanax. 2. Aspirin. 3. Vitamin D. 4. Cinnamon. 5. Fenofibrate. 6. Melatonin. 7. Multivitamin daily. 8. Fish oil. 9. Prilosec. 10.Fiber laxative. 11.Zoloft. 12.Zocor. 13.Ambien. REVIEW OF SYSTEMS: Negative other than HPI. PHYSICAL EXAMINATION: VITAL SIGNS: Temp of 97.3 degrees, heart rate 74, respiratory rate 22, blood pressure 95/55, saturating 96% on room air. GENERAL: The patient is awake, lying in bed, no acute distress noted. HEENT: Anicteric. Pupils PERRLA. Mucous membranes noted to be dry. NECK: Supple. Trachea midline. No JVD. LYMPH NODE SURVEY: No palpable lymphadenopathy. CARDIOVASCULAR: S1, S2, regular rate and rhythm. CHEST: Bilateral breath sounds. Clear to auscultation. ABDOMEN: Soft. Diffuse tenderness. Bowel sounds present in all 4 quadrants. NEUROLOGICAL: Alert and oriented x3. No focal deficits noted. LABORATORY DATA: White blood cell count was 12.68, hemoglobin 10.2, hematocrit 31.4, platelets 207,000. Potassium 4.2. BUN 10, creatinine 0.8. RADIOLOGY REPORTS: Head and pelvis CT showed an obstructing lesion in the distal descending colon which could be associated with peritoneal carcinomas, malignant ascites and cholelithiasis. Chest CT showed COPD, bilateral pleural effusion and basilar atelectasis versus pneumonia. Barium enema showed a large obstructing sigmoid colon cancer. ASSESSMENT AND PLAN: 1. Obstructed colonic mass with a high grade stricture: This is highly suspicious of colon cancer, CA slightly elevated at 9.0. Patient is scheduled to undergo colon resection today. Once the patient's colon resection is sent to pathology, we can follow up on the results once he gets those. We will continue to monitor closely. 2. Hypertension. Continue management by medical team. 3. Diabetes mellitus type 2. Continue recommendations by primary medical team. 4. Anemia. Iron levels are slightly low. Continue to monitor H and H closely. Transfuse as needed. 5. Anxiety. Continue Xanax as per primary medical team. 6. GI prophylaxis. Continue recommendations per primary medical team. Dictated by DENISE Rubalcava for Nayan Biggs MD Patient seen and examined. As above. Patient with obstructing colon mass. CT scan reveals obstructive lesion in the descending colon and ascites. He is going for surgery. I will follow along with you. Nayan Biggs M.D. cc: DENISE Rubalcava MD [facility]
--- NOTE | 2018-03-23 11:43 | EKG Report ---
Test Performed on : 03/23/2018 09:18:40 AM Test Reason : rhythm change Blood Pressure : / mmHG Vent. Rate : 087 BPM Atrial Rate : 087 BPM P-R Int : 166 ms QRS Dur : 082 ms QT Int : 360 ms P-R-T Axes : 032 -48 051 degrees QTc Int : 433 ms Normal sinus rhythm. Low voltage QRS Left anterior fascicular block Abnormal ECG When compared with ECG of 11-JUL-2012 20:57, No significant change was found Confirmed by Leni DENNIS, Rl Gee ([id number]) on 03/24/2018 10:13:05 AM
[2018-03-23] MEDS ORDERED: ALBUMIN 25% ONE (11:54)
[2018-03-23] MEDS ORDERED: ZOFRAN ONE (12:10)
[2018-03-23] MEDS ORDERED: PITRESSIN ONE (12:10)
[2018-03-23] MEDS ORDERED: ROBINUL ONE ×2 (12:33→12:55)
[2018-03-23] MEDS ORDERED: NEOSTIGMINE ONE ×2 (12:33→12:55)
[2018-03-23] MEDS ORDERED: FENTANYL ONE (13:02)
[2018-03-23 14:23] LABS: HEMATOCRIT 24.5 % (42.0-52.0); HEMOGLOBIN 7.9 g/dL (14.0-18.0); MCH 27.6 PG (27-31); MCHC 32.2 g/dL (33-37); MCV 85.7 FL (81-99); RBC 2.86 XMIL (4.7-6.1); RDW 16.4 % (11.5-14.5); WBC 7.24 X1000 (4.8-10.8)
[2018-03-23] MEDS: OFIRMEV 1000 MG/ISOTONIC SOLN 1,000 MG/100 ML BOTTLE IV SCH ×2 (14:36→20:41)
[2018-03-23 14:46] LABS: AGAP 10; BUN 9 mg/dL (8-22); CALCIUM 7.9 mg/dL (8.8-10.2); CHLORIDE 108 mmol/L (98-107); COSMO 270; CREATININE 0.7 mg/dL (0.7-1.2); ESTIMATED GFR > 60; GLUCOSE 89 mg/dL (70-104); POTASSIUM 4.1 mmol/L (3.5-5.1); SODIUM 136 mmol/L (136-145); TCO2 18 mmol/L (25-35)
[2018-03-23] MEDS: LEVOPHED 8 MG in D5 1/2 NS 250 ML IV SCH (17:42)
[2018-03-23 17:45] LABS: HEMATOCRIT 38.8 % (42.0-52.0); HEMOGLOBIN 13.3 g/dL (14.0-18.0)
[2018-03-23] MEDS ORDERED: LR 500 ML IV ONE (18:41)
[2018-03-23] MEDS ORDERED: CALCIUM GLUCONATE 1 GM in NS 50 ML IV ONE (19:03)
[2018-03-23] MEDS: LR 1,000 ML IV SCH (19:39)
--- NOTE | 2018-03-23 20:18 | PROGRESS NOTE ---
DATE: 03/23/2018 SUBJECTIVE: The patient was seen this morning prior to his surgery. No acute events noted overnight. OBJECTIVE: Vital signs: Temperature 98.4, blood pressure 102/67, heart rate 83 , respirations 17, O2 saturations 100 on room air. General: This is a chronically ill-appearing elderly male lying in bed in no acute distress. Heart: S1, S2 normal. Regular rate and rhythm. Lungs: Clear to auscultation bilaterally. Abdomen: Positive bowel sounds. Soft, nontender, nondistended. Extremities: No edema, no cyanosis. Neuro: The patient is alert and oriented x3. LABS: Hemoglobin 13, hematocrit 38, platelets 142,000, INR 1, sodium 136, potassium 4.1, BUN 9, creatinine 0.7, mag 1.8, phos 4.4. ASSESSMENT AND PLAN: 1. Obstructing colonic mass with high-grade stricture. The patient is scheduled for surgery today. 2. Diabetes mellitus type 2. Continue with sliding scale insulin. 3. Iron-deficiency anemia. Improved. The patient received 2 units of packed red blood cells yesterday. Will continue to monitor the hemoglobin and hematocrit closely. 4. Anxiety disorder. Continue with p.r.n. Ativan. 5. Metabolic acidosis. Stable. 6. Gastrointestinal prophylaxis. Continue on Protonix. 7. Deep vein thrombosis prophylaxis continue with SCDs. cc: Terrie Figueroa MD [facility]
[2018-03-23] MEDS: PERIDEX MT SCH (20:41)
--- NOTE | 2018-03-23 21:07 | OPERATIVE NOTE ---
PROCEDURE DATE: 03/23/2018 PREOP DIAGNOSIS: Obstructing colon mass, sigmoid. POSTOP: Sigmoid colon mass with focal tumor perforation and malignant large and small bowel obstruction. PROCEDURE PERFORMED: 1. Extensive lysis of adhesions. 2. Sigmoid colectomy with end-colostomy. 3. Drainage of retroperitoneal abscess. 4. Takedown the splenic flexure. SPECIMENS: 1. Sigmoid colon. 2. Biopsy of small bowel lesion. 3. Biopsy of pelvic sidewall cavity. ESTIMATED BLOOD LOSS: 200 mL. ANESTHESIA: General. INDICATION: 52-year-old gentleman who presented with syncopal event and was found during his workup to have a large sigmoid mass. He is very anemic symptomatically so. OPERATIVE FINDINGS: There was a very large necrotic tumor at the sigmoid colon that had focally perforated and formed an abscess into the lateral pelvic sidewall and retroperitoneum. There was numerous malignant adhesions to the small bowel in the lower quadrants of the abdomen but there was no evidence of peritoneal disease or liver disease. OPERATIVE NOTE: Risks, benefits, alternatives discussed patient. He consented to the procedure, seen preoperatively. Surgical site was confirmed and marked. He was taken to the operating room placed supine position. General anesthesia induced without complication. All bony prominences padded, his abdomen is prepped chlorhexidine solution after hair was removed with clippers and draped in usual fashion. Reveles catheter was placed as well as a nasogastric tube. After a time- out a lower midline incision was made carried down through the fascia. Abdomen is entered in open controlled fashion. The small bowel was significantly dilated as was the colon. We began mobilizing the small bowel encountered many interloop adhesions that mostly stuck to this inflammatory mass in left pelvis but we were able to mobilize this. We started more areas soft normal colon proximally and began our mobilization distally and entered the plane but upon entering the mass very densely inflamed to the left lateral pelvic sidewall and retroperitoneum. We entered the cavity and a large amount of stool and pus was expressed. We started distally and worked back to this through meticulous blunt and electrocautery dissection were able to separate this. We did identify the ureter and protected it, it was very closely involved with this as well as the iliac vessels but we protected them. Mesentery is very foreshortened. There was a dense small bowel adhesion this area too that we had to divide, after lysing this small-bowel obstruction was relieved and there was not a luminal mass on the small bowel. As such we did not perform bowel resection but we did send a biopsy of this to rule out for gross texture tumoral extension. We did also biopsy the left lateral pelvic sidewall cavity as well. After fully mobilizing this, this took greater than an hour to do we selected an area proximally, scored the mesocolon of the sigmoid, identifying the inferior mesenteric artery and using the NGHIA blue load stapler we divided the colon proximally then using combination of 0 Vicryl ligatures and the LigaSure we took the JAE pedicle highly. Continued our dissection distally until we found an area of normal proximal rectum. We protected the ureters bilaterally and divided this as well. Passed colon specimen off, irrigated the cavity, noted hemostasis. We did have to take down splenic flexure to provide adequate length for the colostomy reach the skin. We elected to perform a colostomy given his malnutrition, his pressor requirement over the last several days and the significant size mismatch in his colon related to the obstruction. After removing the specimen we milked the small bowel back to the stomach and decompressed greater than 3 L of enteric contents via the nasogastric tube. Circular incision was made lateral to the umbilicus and just cephalad and carried down through the rectus muscle. The anterior fascia was incised and was split the muscle fibers. A Arcelia clamp was placed and we eviscerated the colon out through this. After irrigating the abdomen our counts correct. We placed a Max drain in the abscess cavity in the pelvis secured with nylon suture. Closed the fascia with #1 running looped PDS suture irrigating the superficial wound. We did change our gloves and we closed the skin incision. We excluded the skin and matured the colostomy removing the staple line with interrupted 3-0 Vicryl sutures Brooking sutures. A dressing was applied as well as an ostomy appliance. He tolerated all this well. He was woken, transferred recovery. I spoke with family. cc: Randi Velasquez MD
[2018-03-23] MEDS: ATIVAN IV PRN (21:48)
[2018-03-24] MEDS: LEVOPHED 8 MG in D5 1/2 NS 250 ML IV SCH ×2 (01:10→10:32)
[2018-03-24] MEDS: ZOSYN 3.375 GM in NS 50 ML IV SCH ×4 (01:17→19:51)
[2018-03-24] MEDS: MORPHINE IV PRN ×2 (01:37→21:36)
[2018-03-24] MEDS: LR 1,000 ML IV SCH ×3 (02:30→16:49)
[2018-03-24] MEDS: OFIRMEV 1000 MG/ISOTONIC SOLN 1,000 MG/100 ML BOTTLE IV SCH ×2 (03:58→08:17)
[2018-03-24] MEDS: ATIVAN IV PRN ×3 (03:58→23:54)
[2018-03-24] MEDS: DUONEB (A & A) INH SCH ×3 (04:07→15:33)
[2018-03-24] MEDS: SODIUM CHLORIDE 0.9% INJ SCH (06:06)
[2018-03-24] MEDS: PROTONIX IV SCH (06:06)
[2018-03-24 06:17] LABS: BASO# 0.01 X1000 (0.0-0.2); BASO% 0.1 % (0.0-0.8); HEMATOCRIT 22.8 % (42.0-52.0); HEMOGLOBIN 7.2 g/dL (14.0-18.0); IMM GRAN# 0.03 X1000 (0.0-0.04); IMM GRAN% 0.3 % (0.0-0.5); LYMPH# 1.89 X1000 (1.2-3.4); LYMPH% 15.8 % (20.5-51.1); MCH 26.9 PG (27-31); MCHC 31.6 g/dL (33-37); MCV 85.1 FL (81-99); MONO% 3.4 % (1.7-9.3); MPV 9.2 FL (7.4-10.4); NEUT% 80.4 % (42.2-75.2); PLT 144 X1000 (130-400); RBC 2.68 XMIL (4.7-6.1); RDW 16.4 % (11.5-14.5); WBC 11.93 X1000 (4.8-10.8)
[2018-03-24] MEDS: HUMULIN R SUBQ SCH ×4 (06:22→20:59)
[2018-03-24 06:50] LABS: AGAP 13; ALB/GLOB RATIO 0.6; ALBUMIN 1.6 g/dL (3.5-5.0); ALKALINE PHOSPHATASE 74 U/L (32-122); BUN 9 mg/dL (8-22); CALCIUM 8.1 mg/dL (8.8-10.2); CHLORIDE 105 mmol/L (98-107); COSMO 276; CREATININE 0.7 mg/dL (0.7-1.2); ESTIMATED GFR > 60; GLUCOSE 223 mg/dL (70-104); GOT 12 U/L (10-34); GPT 16 U/L (10-44); MAGNESIUM 1.6 mg/dL (1.5-2.7); PHOSPHORUS 4.9 mg/dL (2.7-4.5); POTASSIUM 3.9 mmol/L (3.5-5.1); SODIUM 135 mmol/L (136-145); TCO2 17 mmol/L (25-35); TOTAL BILIRUBIN 0.38 mg/dL (0.20-1.00); TOTAL PROTEIN 4.1 g/dL (6.3-8.3)
[2018-03-24] MEDS ORDERED: MAGNESIUM SULFATE 2 GM/S.W.I. 2 GM/50 ML IVPB IV ONE (06:51)
[2018-03-24 08:11] LABS: BASO# 0.02 X1000 (0.0-0.2); BASO% 0.2 % (0.0-0.8); EOS# 0.02 X1000 (0.0-0.7); EOS% 0.2 % (0.0-10.0); HEMATOCRIT 24.8 % (42.0-52.0); HEMOGLOBIN 7.8 g/dL (14.0-18.0); IMM GRAN# 0.04 X1000 (0.0-0.04); IMM GRAN% 0.3 % (0.0-0.5); LYMPH% 16.7 % (20.5-51.1); MCH 26.9 PG (27-31); MCHC 31.5 g/dL (33-37); MCV 85.5 FL (81-99); MONO# 0.39 X1000 (0.11-0.59); MPV 9.4 FL (7.4-10.4); NEUT# 10.47 X1000 (1.4-6.5); NEUT% 79.6 % (42.2-75.2); PLT 159 X1000 (130-400); RDW 16.6 % (11.5-14.5); WBC 13.14 X1000 (4.8-10.8)
[2018-03-24] MEDS: PERIDEX MT SCH ×2 (08:18→21:37)
[2018-03-24] MEDS: NICODERM PATCH TD SCH (08:20)
--- NOTE | 2018-03-24 10:02 | Diag Imaging Result Doc PS360 ---
EXAM: CT HEAD W/O CONTRAST HISTORY: abnormal pupil size TECHNIQUE: CT head without contrast COMPARISON: 03/18/2018 FINDINGS: No parenchymal hemorrhage. No epidural or subdural hematoma. No subarachnoid hemorrhage. Old left occipital infarct. There is atrophy and chronic microvascular ischemic changes. No mass identified on this noncontrasted exam. No hydrocephalus. No sinus opacification. IMPRESSION: 1.Old left occipital infarct 2.No hemorrhage 3.Mild atrophy with mild microvascular ischemic changes similar to the prior study. This exam was performed using automated exposure control, adjustment of mA or kV according to patient size, and/or use of iterative reconstruction technique. Electronically signed by Gene Villasenor 03/24/2018 10:00 AM
--- NOTE | 2018-03-24 10:39 | GENERAL SURGERY PROGRESS NOTE ---
DATE: 03/24/2018 SUBJECTIVE: Nursing staff reports no major issues. Patient is doing okay. OBJECTIVE: Vital Signs: Patient is currently afebrile. Vital signs have been stable. Most recent blood pressure 101/61. General: No acute distress. Resting. Cardiovascular: Heart rate in the 100s. Blood pressure 107/65. Lungs: Grossly clear. Abdomen: Ostomy appears to be viable. Incision with dressing intact. LABORATORY: White blood cell count 11, hematocrit 22. Platelet count 114. ASSESSMENT AND PLAN: A 52-year-old, status post sigmoid colectomy with end colostomy. Postoperative state: At this time, we will continue to monitor. The patient's hematocrit did go down dramatically from 38 to 22. This may be false, so we will repeat another hematocrit here now and followup with that. Otherwise, continue current treatment. cc: Cholo Jacobs MD
--- NOTE | 2018-03-24 12:30 | HEMO/ONC PROGRESS NOTE ---
DATE: 03/24/2018 SUBJECTIVE: The patient complains of mild increasing pain, otherwise the patient has no other complaints at this time. OBJECTIVE: Vital Signs: Temperature 97.7 degrees, heart rate 103, respiratory rate 23, blood pressure is 101/61, satting 92% on nasal cannula and 100% on room air. General : Awake, lying in bed, no acute distress noted. HEENT: Anicteric. Pupils PERRLA. Mucous membranes appear to be dry. Cardiovascular: S1, S2. Regular rate and rhythm. Chest: Bilateral breath sounds. Clear to auscultation. Abdomen: Diffuse tenderness. Bowel sounds present. Neurologic: Alert and oriented x3. No focal deficits noted. LABORATORY DATA: White blood count is 11.93, hemoglobin 7.2, hematocrit 22.8, platelets are 144. Potassium 3.9, BUN 9, creatinine 0.7. ASSESSMENT AND PLAN: 1. Obstructive colonic mass with high-grade stricture: The patient went to the operating room for colon resection yesterday. There was a very large necrotic tumor at the sigmoid colon that had focally perforated and formed an abscess into the lateral pelvic sidewall and retroperitoneum. There was numerous malignant adhesions to the small bowel in the lower quadrants of the abdomen. Waiting on pathology results at this time. Once we get the results, we can make further recommendations and plan treatment. 2. Anemia: Hemoglobin and hematocrit trending downwards. Today, hemoglobin is 7.2 and hematocrit 22.8. Transfuse as needed. 3. Diabetes mellitus type 2, aware. Continue to monitor. Further recommendations per primary medical team. 4. For anxiety, continue recommendations per primary medical team. 5. Gastrointestinal prophylaxis. Recommendations per primary medical team. Dictated by DENISE Rubalcava for Nayan Biggs MD cc: DENISE Rubalcava MD [facility]
[2018-03-24] MEDS ORDERED: TEARISOL OPH SOLUTION BOTH EYES PRN (13:34)
[2018-03-24] MEDS: FLAGYL 500 MG/NS 500 MG/100 ML IVPB IV SCH (16:48)
[2018-03-24] MEDS: VANCOMYCIN 1,250 MG in NS 250 ML IV SCH (16:49)
[2018-03-24] MEDS ORDERED: ALBUMIN 25% IV SCH (19:30)
[2018-03-24] MEDS: LASIX IV SCH (19:55)
--- NOTE | 2018-03-24 19:55 | PROGRESS NOTE ---
DATE: 03/24/2018 SUBJECTIVE: The patient is resting comfortably in bed. Overnight he was noted to have asymmetric pupil size. This has improved. He also has significant swelling in his upper extremities. OBJECTIVE: Vital Signs: Temperature 98.6 degrees, blood pressure 100/68, heart rate 105, respirations 17, O2 saturation 97% on 2 L nasal cannula. Urine output 4.5 L. General: This is a chronically ill-appearing elderly male lying in bed in no acute distress. Heart: S1, S2 normal. Regular rate and rhythm. Lungs: Equal air entry bilaterally. No crackles. No rales. Abdomen: Positive bowel sounds. Soft, mildly tender. Extremities: 2+ edema in the upper extremities, trace pedal edema in the lower extremities. Neuro: The patient is alert and oriented x3. No focal neurologic deficits noted. LABS: White blood cell count 13, hemoglobin 7.8, hematocrit 24, platelets 159,000. Sodium 135, potassium 3.9, chloride 105, CO2 17, BUN 9, creatinine 0.7, glucose 223, albumin 1.6. ASSESSMENT AND PLAN: 1. Status post sigmoid colectomy with end colostomy and lysis of adhesions secondary to an obstructing colonic mass. Management as per the general surgeon. 2. Focal tumor perforation with abscess status post drainage of a retroperitoneal abscess. Will broaden the patient's antibiotic coverage and consult ID. 3. Iron deficiency anemia. Will continue to monitor the patient's hemoglobin and hematocrit closely, transfuse p.r.n. 4. Diabetes mellitus type 2. Continue on sliding scale insulin. 5. Mild metabolic acidosis. Continue to monitor this closely. 6. Gastrointestinal prophylaxis. Continue on IV Protonix. 7. Deep vein thrombosis prophylaxis. Will start the patient on Lovenox. cc: Terrie Figueroa MD
[2018-03-24] MEDS ORDERED: VASELINE TOP PRN (22:31)
[2018-03-25] MEDS: LEVOPHED 8 MG in D5 1/2 NS 250 ML IV SCH (00:10)
[2018-03-25] MEDS: DUONEB (A & A) INH SCH ×3 (00:16→16:39)
[2018-03-25] MEDS: FLAGYL 500 MG/NS 500 MG/100 ML IVPB IV SCH ×3 (00:29→11:58)
[2018-03-25] MEDS: LR 1,000 ML IV SCH ×2 (00:34→10:04)
[2018-03-25] MEDS ORDERED: ATIVAN IV ONE (02:19)
[2018-03-25] MEDS: ZOSYN 3.375 GM in NS 50 ML IV SCH ×4 (02:45→19:26)
[2018-03-25] MEDS: MORPHINE IV PRN ×2 (04:33→11:29)
[2018-03-25] MEDS: PROTONIX IV SCH (06:45)
[2018-03-25] MEDS: HUMULIN R SUBQ SCH ×4 (07:00→20:57)
--- NOTE | 2018-03-25 07:57 | Diag Imaging Result Doc PS360 ---
EXAM: CHEST-PORTABLE - 03/25/2018 HISTORY: dyspnea TECHNIQUE: Portable chest COMPARISON: 03/19/2018 FINDINGS: There has been insertion of PICC from the right with its tip at the superior right atrium. There has been insertion of a nasogastric tube, which can be followed to the mid stomach. Heart size is normal. There has been interval development of infiltrates and/or atelectasis at the bilateral lung bases, most prominent on the right. There is a possible small right pleural effusion. There is no pneumothorax identified. IMPRESSION: Infiltrates and/or atelectasis at bilateral lung bases, most prominent on the right. Possible small right pleural effusion. Electronically signed by Roberto Johnson 03/25/2018 7:55 AM
--- NOTE | 2018-03-25 08:02 | GENERAL SURGERY PROGRESS NOTE ---
DATE: 03/25/2018 SUBJECTIVE: The patient was agitated through the night and trying to get up out of bed but he seems to have calmed down. OBJECTIVE: Vital Signs: The patient is currently afebrile. Most recent heart rate was 95, blood pressure 107/69. He is on a slight amount of Levophed. General Examination: No acute distress. Cardiovascular: On Levophed but otherwise regular rate and rhythm. Lungs: Some coarse sounds noted. Abdomen: The ostomy appears to be viable. Incision with dressing intact. Still some hypoactive bowel sounds. Laboratory: CBC pending from this morning but his hematocrit did, on repeat, go to 24.8 yesterday. ASSESSMENT AND PLAN: A 52-year-old status post sigmoid colectomy with end colostomy. Postoperative state. At this time, continue to monitor. We will monitor his hematocrit. He is still on some pressors but I will give him some sips of clears and ice chips. We will keep his nasogastric tube in place for right now. Otherwise, continue current treatment. cc: Cholo Jacobs MD
[2018-03-25] MEDS: LASIX IV SCH (10:04)
[2018-03-25] MEDS: PERIDEX MT SCH ×2 (10:04→21:01)
[2018-03-25] MEDS: NICODERM PATCH TD SCH (10:05)
[2018-03-25] MEDS: LOVENOX SUBQ SCH (10:05)
[2018-03-25] MEDS ORDERED: LR 1,000 ML IV SCH (10:15)
[2018-03-25 10:27] LABS: AGAP 14; ALB/GLOB RATIO 1.4; ALBUMIN 2.4 g/dL (3.5-5.0); ALKALINE PHOSPHATASE 77 U/L (32-122); BUN 6 mg/dL (8-22); CALCIUM 7.7 mg/dL (8.8-10.2); CHLORIDE 106 mmol/L (98-107); COSMO 277; CREATININE 0.7 mg/dL (0.7-1.2); ESTIMATED GFR > 60; GLUCOSE 70 mg/dL (70-104); GOT 14 U/L (10-34); GPT 17 U/L (10-44); MAGNESIUM 1.4 mg/dL (1.5-2.7); PHOSPHORUS 3.8 mg/dL (2.7-4.5); POTASSIUM 3.1 mmol/L (3.5-5.1); SODIUM 141 mmol/L (136-145); TCO2 21 mmol/L (25-35); TOTAL BILIRUBIN 0.42 mg/dL (0.20-1.00); TOTAL PROTEIN 4.1 g/dL (6.3-8.3)
[2018-03-25 10:30] LABS: BASO# 0.02 X1000 (0.0-0.2); BASO% 0.2 % (0.0-0.8); EOS# 0.22 X1000 (0.0-0.7); EOS% 1.9 % (0.0-10.0); HEMATOCRIT 19.4 % (42.0-52.0); HEMOGLOBIN 6.2 g/dL (14.0-18.0); IMM GRAN# 0.03 X1000 (0.0-0.04); IMM GRAN% 0.3 % (0.0-0.5); LYMPH# 1.84 X1000 (1.2-3.4); LYMPH% 15.8 % (20.5-51.1); MCH 27.3 PG (27-31); MCV 85.5 FL (81-99); MONO# 0.33 X1000 (0.11-0.59); MONO% 2.8 % (1.7-9.3); MPV 10.1 FL (7.4-10.4); NEUT# 9.19 X1000 (1.4-6.5); PLT 154 X1000 (130-400); RBC 2.27 XMIL (4.7-6.1); RDW 16.9 % (11.5-14.5); WBC 11.63 X1000 (4.8-10.8)
[2018-03-25] MEDS: ATIVAN IV PRN (11:29)
[2018-03-25] MEDS: ALBUMIN 25% IV SCH (11:30)
[2018-03-25 11:54] LABS: ANISOCYTOSIS 1+; BANDS 8 % (0-1); EOS 2 % (1-10); HYPOCHROM 1+; LYMPHS 12 % (21-51); MICROCYTOSIS 1+; MONO 2 % (1-9); SEGS 74 % (42-75)
[2018-03-25] MEDS ORDERED: MAGNESIUM SULFATE 2 GM/S.W.I. 2 GM/50 ML IVPB IV ONE (13:16)
[2018-03-25] MEDS ORDERED: POTASSIUM CHLORIDE 60 MEQ in NS 500 ML IV ONE (13:16)
[2018-03-25] MEDS ORDERED: STERILE WATER INJ. INJ PRN (13:31)
[2018-03-25] MEDS ORDERED: ATIVAN IV PRN (13:33)
[2018-03-25] MEDS: GEODON IM PRN ×2 (14:07→23:27)
--- NOTE | 2018-03-25 15:32 | PROGRESS NOTE ---
DATE: 03/25/2018 SUBJECTIVE: The patient was noted to be very confused overnight, trying to get out of bed. His brother ended up having to come and sit with him early this morning. Even today , the patient continues to have periods of confusion where he tries to get out of bed. OBJECTIVE: Vital Signs: Temperature 98.3 degrees, blood pressure 107/65, heart rate 98, respirations 18, and O2 saturation 93% on 2 L nasal cannula. Urine output 4.7 L. General: This is an elderly male lying in bed in no acute distress. HEENT: Head normocephalic and atraumatic. Heart: S1, S2 normal. Regular rate and rhythm. Lungs: Diminished breath sounds at the bases. No wheezing. No rales. Abdomen: Positive bowel sounds. Soft, nontender, and nondistended. Extremities: 1+ edema bilaterally. Neurologic: The patient is oriented to person and place. The patient does have periods of confusion. He is able to move all 4 extremities. LABORATORY: White blood cell count 11, hemoglobin 6.2, hematocrit 19, and platelets 154,000. Sodium 141, potassium 3.1, chloride 106, CO2 21, BUN 6, creatinine 0.7, glucose 70, magnesium 1.4, phosphorus 3.8, AST 14, proBNP 1452, and albumin 2.4. Chest x-ray shows infiltrates at the bilateral lung bases. Small right pleural effusion. ASSESSMENT AND PLAN: 1. Metabolic encephalopathy. This is likely secondary to the patient's multiple medical issues. We will continue to monitor the patient closely for improvement. 2. Status post sigmoid colectomy with end colostomy and lysis of adhesions secondary to an obstructing colonic mass. Management as per the general surgeon. The patient has not started to pass flatus yet. 3. Focal tumor perforation with abscess status post drainage of a retroperitoneal abscess. Continue with antibiotic therapy. 4. Severe iron deficiency anemia. We will transfuse 2 units of packed red blood cells today. 5. Hypotension. The patient remains on Levophed. We will try and wean the patient off. 6. Volume overload. The patient is currently on Lasix and albumin infusions. 7. Diabetes mellitus type 2. Continue with sliding scale insulin. 8. Severe protein calorie malnutrition. The patient is n.p.o. at this time. We are currently awaiting return of the patient's bowel function before p.o. intake is initiated. 9. Gastrointestinal prophylaxis. Continue on IV Protonix. 10. Deep vein thrombosis prophylaxis. Continue on Lovenox. cc: Terrie Figueroa MD [facility]
[2018-03-25] MEDS ORDERED: DUONEB (A & A) INH PRN (16:45)
[2018-03-25] MEDS: D5 NS 1,000 ML IV SCH (16:56)
[2018-03-25] MEDS ORDERED: NS 250 ML ONE (16:58)
--- NOTE | 2018-03-25 19:16 | INFECTIOUS DISEASE CONSULT REP ---
DATE: 03/25/2018 CONCLUSION: Patient is status post drainage of a large retroperitoneal abscess, sigmoid colectomy and I am uncertain if any surgical procedure was done for the large necrotic tumor. The patient has a intraabdominal abscess. He also has bibasilar infiltrates versus atelectasis. RECOMMENDATIONS: I agree with treating the patient with vancomycin and Zosyn. I have discontinued Flagyl. I have ordered immunoglobulins on the patient and also I have ordered to send the drainage coming through the patient's drain for culture. DISCUSSION: The patient is unable provide a history. No family members present. Patient went to surgery as mentioned above. Postoperatively, I have seen him. His studies now show a CBC with a white count of 11,630, hemoglobin 6.2, and platelet count 154,000. Creatinine is 0.7. GFR is greater than 60. Liver function studies are normal. Initial blood cultures were negative. Stools for Clostridium difficile toxin and antigen were negative and recently more blood cultures have been ordered the results of which are pending. Chest x-ray shows bibasilar infiltrates versus atelectasis. PAST MEDICAL HISTORY: Positive for brain abscess, hypertension, diabetes mellitus, and hyperlipidemia. PAST SURGICAL HISTORY: Is positive for brain surgery. ALLERGIES: He is allergic to hydrocodone. HOME MEDICATIONS: Include Xanax, various holistic medicines and vitamins, fenofibrate, omeprazole, Zocor and Ambien. PHYSICAL EXAMINATION: Vital Signs: Temperature is 99 degrees, pulse 78, respirations 19, blood pressure 86/53. The patient is 5 feet 9 inches tall, weighs 148 pounds. General: This is an ill- appearing middle-aged male. He is in no acute distress. He is sedated. Head, eyes, ears, nose and throat: No drainage noted from the nose or ears. The patient at one time I thought respond to verbal stimuli when I asked him to move his arms and legs and he did, but I asked him to do other things and he did not do them. I was unable to get a look into the patient's mouth. Neck: No meningismus. Patient has a jugular venous catheter in place. The catheter site is not erythematous or swollen. Lungs: Clear to auscultation. Cardiovascular: Regular heart rate. Abdomen: Soft. It did not seem to be tender. The incision is intact and the patient has a drain in place. Neurologic: The patient is very lethargic. At one time he did move his extremities when I asked him to, but the other times when I asked him to do something such as opening his eyelids, he did not do it. Integument: No rash noted. Thank you for the consult. cc: Florencio Pemberton MD
[2018-03-25] MEDS: RESTASIS 0.05% OPH DROPS BOTH EYES SCH (20:58)
[2018-03-26] MEDS: ZOSYN 3.375 GM in NS 50 ML IV SCH ×4 (02:21→20:42)
[2018-03-26] MEDS: VANCOMYCIN 1,250 MG in NS 250 ML IV SCH (03:43)
[2018-03-26 05:49] LABS: AGAP 14; ALB/GLOB RATIO 1.1; ALBUMIN 2.5 g/dL (3.5-5.0); ALKALINE PHOSPHATASE 73 U/L (32-122); BUN 4 mg/dL (8-22); CALCIUM 8.6 mg/dL (8.8-10.2); CHLORIDE 105 mmol/L (98-107); COSMO 283; CREATININE 0.6 mg/dL (0.7-1.2); ESTIMATED GFR > 60; GLUCOSE 86 mg/dL (70-104); GOT 13 U/L (10-34); GPT 17 U/L (10-44); MAGNESIUM 1.6 mg/dL (1.5-2.7); PHOSPHORUS 3.5 mg/dL (2.7-4.5); SODIUM 144 mmol/L (136-145); TCO2 25 mmol/L (25-35); TOTAL BILIRUBIN 0.52 mg/dL (0.20-1.00); TOTAL PROTEIN 4.8 g/dL (6.3-8.3)
[2018-03-26] MEDS ORDERED: POTASSIUM CHLORIDE 60 MEQ in NS 500 ML IV ONE (05:57)
[2018-03-26] MEDS ORDERED: MAGNESIUM SULFATE 4 GM/S.W.I. 4 GM/100 ML IVPB IV ONE (05:57)
[2018-03-26] MEDS: PROTONIX IV SCH (06:34)
[2018-03-26] MEDS: HUMULIN R SUBQ SCH ×4 (06:35→20:43)
--- NOTE | 2018-03-26 06:54 | Diag Imaging Result Doc PS360 ---
EXAM: CHEST-PORTABLE HISTORY: dyspnea TECHNIQUE: Portable chest single view COMPARISON: 03/25/2018 FINDINGS: No change in the right-sided PICC line or in the nasogastric tube. There are infiltrates in the mid and lower lungs. These are slightly more prominent on the current study. There are also small pleural effusions, right greater than left with basilar atelectasis. IMPRESSION: Mild interval worsening. Electronically signed by Gene Villasenor 03/26/2018 6:52 AM
[2018-03-26 06:56] LABS: BASO# 0.04 X1000 (0.0-0.2); BASO% 0.4 % (0.0-0.8); EOS# 0.28 X1000 (0.0-0.7); EOS% 2.5 % (0.0-10.0); HEMATOCRIT 26.9 % (42.0-52.0); HEMOGLOBIN 8.8 g/dL (14.0-18.0); IMM GRAN# 0.04 X1000 (0.0-0.04); IMM GRAN% 0.4 % (0.0-0.5); LYMPH# 1.66 X1000 (1.2-3.4); LYMPH% 14.8 % (20.5-51.1); MCH 27.4 PG (27-31); MCHC 32.7 g/dL (33-37); MCV 83.8 FL (81-99); MONO# 0.37 X1000 (0.11-0.59); MONO% 3.3 % (1.7-9.3); MPV 9.7 FL (7.4-10.4); NEUT# 8.86 X1000 (1.4-6.5); NEUT% 78.6 % (42.2-75.2); PLT 155 X1000 (130-400); RBC 3.21 XMIL (4.7-6.1); RDW 15.8 % (11.5-14.5); WBC 11.25 X1000 (4.8-10.8)
--- NOTE | 2018-03-26 07:12 | INFECTIOUS DISEASE PROGRESS NO ---
DATE: 03/26/2018 PRESENT ILLNESS: The patient is status post drainage of a large retroperitoneal abscess and sigmoid colectomy involving a large necrotic tumor. The patient also has bibasilar infiltrates versus atelectasis. MEDICATION: The patient is receiving a combination of vancomycin and Zosyn now for a total of 9 days. PHYSICAL EXAMINATION: Vital Signs: Temperature is 97.4, pulse 83, respirations 18, blood pressure 129/107. General: Patient appears to be much better today. He is awake and talking. Head/eyes/ears/nose/throat: He can hear my spoken words and see near objects. He does not have any white patches on his tongue. Neck: No meningismus. Lungs: Clear to auscultation. Cardiovascular: Heart rate is regular. Abdomen: Soft. It is not tender to light palpation. The patient's incision head is intact. The patient also has a functioning colostomy. LAB AND X-RAY: CBC today is pending. I sent down some abdominal drainage from the drain tube in the patient's abdomen and on gram stain, no bacteria or yeast were seen. Blood cultures are pending. ASSESSMENT AND PLAN: The patient is status post surgery including drainage of a large retroperitoneal abscess and also I am uncertain if the large necrotic tumor was removed also. My plan is to continue the current antibiotics namely vancomycin and Zosyn pending culture results of the abdominal drainage. COMORBIDITIES: He has diabetes mellitus. The necrotic tumor could very well bench lay out technician to be a malignancy and it appears if it is a malignancy that there is localized spread of the malignancy. cc: Florencio Pemberton MD
[2018-03-26 08:02] LABS: BANDS 2 % (0-1); LYMPHS 10 % (21-51); MONO 2 % (1-9); SEGS 86 % (42-75)
[2018-03-26] MEDS ORDERED: CATHFLO IV ONE (08:15)
[2018-03-26] MEDS: PERIDEX MT SCH ×2 (09:07→20:42)
[2018-03-26] MEDS: NICODERM PATCH TD SCH (09:07)
[2018-03-26] MEDS: LASIX IV SCH (09:07)
[2018-03-26] MEDS: LOVENOX SUBQ SCH (09:07)
[2018-03-26] MEDS: RESTASIS 0.05% OPH DROPS BOTH EYES SCH ×2 (09:08→20:42)
[2018-03-26] MEDS: ALBUMIN 25% IV SCH (09:50)
[2018-03-26] MEDS: MORPHINE IV PRN ×3 (10:28→23:46)
--- NOTE | 2018-03-26 13:52 | PROGRESS NOTE ---
DATE: 03/26/2018 SUBJECTIVE: Patient was asleep with eyes closed. There was no family at the bedside. I have spoken with the nurse. Patient had surgery on 03/23/2018. Procedure performed : lysis of adhesions, sigmoid colectomy and end-colostomy drainage of retroperitoneal abscess and takedown of the splenic flexure by Dr. Velasquez. Dr. Biggs has seen the patient on consultation. Awaiting pathology results for further plans. OBJECTIVE: Vital Signs: Temperature 96.9, pulse 77, respirations 16, blood pressure 106/64. General: Patient is asleep with no acute distress. He has NG tube in place. LABORATORY: Hematology: WBC 11.25, hemoglobin 8.8, hematocrit 26.9, MCV 83.8, platelet 155. Chemistry: Sodium 144, potassium 3.0, chloride 105, CO2 of 25, BUN 4, creatinine 0.6, glucose 86. ASSESSMENT AND PLAN: 1. Colon cancer status post sigmoid colectomy and end-colostomy. Pathology is pending. 2. Anemia. Patient has received packed red blood cell transfusion. 3. Diabetes. 4. Metabolic encephalopathy. PLAN: Continue current management. Awaiting pathology results. GI will be available as needed. Will continue to follow during his hospital course. Further plans will be made as needed. I have discussed this case with Dr. Astorga. Dictated by DENISE Winter for Kranthi Astorga MD cc: DENISE Jarrett MD [facility]
--- NOTE | 2018-03-26 13:55 | PROGRESS NOTE ---
DATE: 03/26/2018 SUBJECTIVE: The patient has been having periods of confusion overnight and during the day. Otherwise, no other events noted. OBJECTIVE: Vital Signs: Temperature 96.9 degrees, blood pressure 106/64, heart rate 77, respirations 16, O2 saturations 96% on 2 L nasal cannula. General: This is a chronically ill- appearing elderly male lying in bed in no acute distress. Heart: S1, S2 normal. Regular rate and rhythm. Lungs: Diminished breath sounds at the bases. No crackles. No rales. Abdomen: Positive bowel sounds. Soft, nontender, nondistended. Extremities: No edema, no cyanosis. Neurologic: The patient is alert and oriented x3. No focal neurologic deficits noted. LABORATORIES: White blood cell count 11, hemoglobin 8.8, hematocrit 26, platelets 155,000. Sodium 144, potassium 3, chloride 105, CO2 25, BUN 4, creatinine 0.6, glucose 86 , calcium 8.6, albumin 2.5. ASSESSMENT AND PLAN: 1. Metabolic encephalopathy. Multifactorial. We will continue to treat the patient's underlying infections. We will monitor the patient closely for improvement. 2. Status post sigmoid colectomy with end colostomy and lysis of adhesions secondary to an obstructing colonic mass. The patient currently has an NG tube to low intermittent suction. Further management as per the general surgeon. 3. Focal tumor perforation with abscess, status post drainage of a retroperitoneal abscess. The cultures are currently pending. Continue with antibiotic therapy. 4. Hypokalemia. We will replace the patient's potassium. 5. Anemia. Improved. The patient received 2 units of packed red blood cells yesterday. 6. Hypomagnesemia. We will replace the patient's magnesium. 7. Diabetes mellitus type 2. Continue on sliding scale insulin. 8. Volume overload. Improved. The patient is responding well to albumin and diuretic infusions. 9. Severe protein calorie malnutrition. The patient is currently n.p.o. We are awaiting return of the patient's bowel function. 10. Gastrointestinal prophylaxis. Continue on IV Protonix. 11. Deep vein thrombosis prophylaxis. Continue on Lovenox. cc: Terrie Figueroa MD [facility]
[2018-03-26] MEDS: D5 NS 1,000 ML IV SCH (14:45)
--- NOTE | 2018-03-26 23:31 | GENERAL SURGERY PROGRESS NOTE ---
DATE: 03/26/2018 SUBJECTIVE: Some confusion and agitation overnight. He was given Ativan and Geodon, left him quite somnolent this morning, no fevers. Pulse been the 70s, 80s, blood pressure is 132/71. He is no longer on vasopressors. Ostomy is working. Incision is intact. MAREK drain serosanguineous. I reviewed his labs. White count is 11, hematocrit 26, creatinine 0.6. ASSESSMENT AND PLAN: A 52-year-old gentleman with a left sigmoid mass. We resected this, given end colostomy. Follow his anxiolytics. His NG tube output is quite high. Hopefully we can start his home Xanax as needed but in the meantime I would like to hold it for now he seems over-sedated. He has not require anything for pain since yesterday. We need to get him out of bed and move around as much as possible. Will continue his antibiotics for the focal tumor perforation. He is on PPI. He is on Lovenox. He is being diuresed. Will follow along. cc: Randi Velasquez MD [facility]
[2018-03-27] MEDS: ATIVAN IV PRN ×2 (01:50→15:46)
[2018-03-27] MEDS: ZOSYN 3.375 GM in NS 50 ML IV SCH ×4 (02:17→20:36)
[2018-03-27] MEDS: PROTONIX IV SCH (06:15)
[2018-03-27] MEDS: SODIUM CHLORIDE 0.9% INJ SCH (06:15)
[2018-03-27] MEDS: HUMULIN R SUBQ SCH ×4 (06:15→22:02)
[2018-03-27 06:26] LABS: BASO# 0.04 X1000 (0.0-0.2); BASO% 0.5 % (0.0-0.8); EOS# 0.18 X1000 (0.0-0.7); EOS% 2.3 % (0.0-10.0); HEMATOCRIT 27.7 % (42.0-52.0); HEMOGLOBIN 9.2 g/dL (14.0-18.0); IMM GRAN# 0.02 X1000 (0.0-0.04); IMM GRAN% 0.3 % (0.0-0.5); LYMPH# 2.11 X1000 (1.2-3.4); LYMPH% 26.4 % (20.5-51.1); MCHC 33.2 g/dL (33-37); MCV 84.5 FL (81-99); MONO# 0.39 X1000 (0.11-0.59); MONO% 4.9 % (1.7-9.3); MPV 9.3 FL (7.4-10.4); NEUT# 5.25 X1000 (1.4-6.5); NEUT% 65.6 % (42.2-75.2); PLT 234 X1000 (130-400); RBC 3.28 XMIL (4.7-6.1); RDW 16.1 % (11.5-14.5); WBC 7.99 X1000 (4.8-10.8)
[2018-03-27 07:09] LABS: EOS 2 % (1-10); LYMPHS 30 % (21-51); SEGS 62 % (42-75)
[2018-03-27 07:22] LABS: AGAP 15; BUN 3 mg/dL (8-22); CALCIUM 8.7 mg/dL (8.8-10.2); CHLORIDE 103 mmol/L (98-107); COSMO 288; CREATININE 0.7 mg/dL (0.7-1.2); ESTIMATED GFR > 60; GLUCOSE 112 mg/dL (70-104); MAGNESIUM 1.7 mg/dL (1.5-2.7); PHOSPHORUS 3.9 mg/dL (2.7-4.5); POTASSIUM 2.6 mmol/L (3.5-5.1); SODIUM 146 mmol/L (136-145); TCO2 28 mmol/L (25-35)
[2018-03-27] MEDS ORDERED: STERILE WATER INJ. INJ ONE (07:33)
--- NOTE | 2018-03-27 08:34 | HEMO/ONC PROGRESS NOTE ---
DATE: 03/27/2018 SUBJECTIVE: The patient complains of having trouble resting throughout the night. Otherwise, no other complaints at this time. OBJECTIVE: Vital Signs: Temperature 98.4 degrees, heart rate 96, respiratory rate 20, blood pressure 135/76, saturating 93% on room air. General: Patient is awake, lying in bed, no acute distress noted. HEENT: Anicteric. Pupils PERRLA. Mucous membranes moist. Cardiovascular: S1, S2. Regular rate and rhythm. Lungs: Bilateral breath sounds, diminished at the bases. Abdomen: Soft, nontender. Bowel sounds present all 4 quadrants. Neurologic: Alert and oriented x3. No focal deficits noted. LABORATORY DATA: White blood cell count 7.99, hemoglobin 9.2, hematocrit 27.7, platelets are 234. Potassium 2.6, BUN 3, creatinine 0.7. ASSESSMENT AND PLAN: 1. Obstructive colonic mass and high-grade stricture: The patient is status post colon resection. Awaiting pathology results at this time. We will continue to monitor and make further recommendations once we get those back. 2. Anemia: Patient is status post a couple units of packed red blood cells. Hemoglobin and hematocrit continue to be stable. Continue to monitor closely. 3. Hypokalemia: Continue to replace the patient's potassium per Primary Medical Team. Will continue to monitor. 4. Gastrointestinal prophylaxis. Continue with Protonix. 5. Deep venous thrombosis prophylaxis. Continue Lovenox as ordered. Dictated by DENISE Rubalcava for Nayan Biggs MD cc: DENISE Rubalcava MD
[2018-03-27] MEDS ORDERED: POTASSIUM CHLORIDE 40 MEQ/SWI 40 MEQ/100 ML IVPB IV ONE ×2 (08:47→16:18)
[2018-03-27] MEDS: LOVENOX SUBQ SCH (09:12)
[2018-03-27] MEDS: PERIDEX MT SCH ×2 (09:12→20:38)
[2018-03-27] MEDS: NICODERM PATCH TD SCH (09:12)
[2018-03-27] MEDS: RESTASIS 0.05% OPH DROPS BOTH EYES SCH ×2 (09:14→22:38)
[2018-03-27] MEDS ORDERED: GAMUNEX-C 10% IV ONE (10:00)
--- NOTE | 2018-03-27 10:03 | INFECTIOUS DISEASE PROGRESS NO ---
DATE: 03/27/2018 PRESENT ILLNESS: The patient is status post drainage of a large retroperitoneal abscess and sigmoid colectomy involving a large necrotic tumor. The patient also has bibasilar infiltrates versus atelectasis. If there are infiltrates present, then the patient would most likely have pneumonia. Also, more recently, we have discovered that the patient's IgG level is low at 439. MEDICATIONS: This is the 10th day of treatment with a combination of vancomycin and Zosyn. PHYSICAL EXAMINATION: Vital Signs: Temperature is 98.8 degrees, pulse 92, respirations 21, blood pressure 135/76. General: This is an ill-appearing, middle-aged male. He is in no acute distress. Head, Eyes, Ears, Nose, and Throat: He has an NG tube in place. It is pulling up bilious fluid. He can hear my spoken words and see near objects. He does not have any white patches on his tongue. Neck: No meningismus. Lungs: Clear to auscultation. Cardiovascular: Heart rate is regular. Abdomen: Soft. It was not tender to light palpation. The patient's incision is intact and the patient's colostomy is functional. Neurologic: The patient is alert. He can move his extremities. There is no tremor. LAB AND X-RAY: The patient's IgG level is low at 439, IgA was normal at 167. CBC shows a white count of 7990, hemoglobin 9.2, and platelet count 234,000. The culture from the drainage coming from the patient's abdomen remains negative. Creatinine is 0.7. GFR is greater than 60. Liver function studies are normal. ASSESSMENT AND PLAN: The patient is status post surgery including drainage of a large retroperitoneal abscess. 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 My plan is to continue the current antibiotics, namely vancomycin and Zosyn. Also, I have ordered a dose of immunoglobulin for the patient to be given intravenously. COMORBIDITIES: The patient is diabetic. He has a necrotic tumor which could well return clerk to be a malignancy and it appears that there is localized spread of it. cc: Florencio Pemberton MD
[2018-03-27] MEDS: D5 NS 1,000 ML IV SCH (10:07)
[2018-03-27] MEDS: MORPHINE IV PRN ×2 (13:00→20:34)
[2018-03-27] MEDS: LASIX IV SCH (13:21)
[2018-03-27] MEDS: VANCOMYCIN 1,500 MG in NS 250 ML IV SCH (14:12)
[2018-03-27] MEDS: CLINIMIX E 4.25%-5% SOLUTION 1,000 ML IV SCH (15:30)
--- NOTE | 2018-03-27 16:51 | PROGRESS NOTE ---
DATE: 03/27/2018 SUBJECTIVE: The patient is resting in bed. Not in any obvious distress. The patient's sensorium seemed to have improved. OBJECTIVE: Vital Signs: Temperature 99.1 degrees, pulse 97, respirations 18, blood pressure 159/97, oxygen saturation is 98%. HEENT: He is atraumatic, normocephalic. Cardiovascular system: S1, S2. Respiratory system: Has evidence of good air entry bilaterally. Abdomen: Patient does have ostomy in the lower mid region and also a surgical wound on the right side of the abdomen. Extremities: No evidence of edema. Central nervous system: No obvious focal deficits noted. LABS: Labs are as follows: WBC 7.9, hematocrit is 37.7, with a platelet count of 234. Sodium is 146, potassium is 2.6, chloride is 103, bicarbonate 28, BUN is 3, creatinine 0.7. ASSESSMENT AND PLAN: 1. Metabolic encephalopathy, probably multifactorial in etiology. Continue to monitor patient's clinical progression. 2. Status post sigmoid colon colectomy with end colostomy and lysis of admissions, secondary to obstructing colonic mass. The patient has been followed by the surgical team. 3. Focal tumor perforation with abscess, status post drainage of retroperitoneal abscess. Continue antibiotics. Surgery following. 4. Hypokalemia. Replace potassium level. Check magnesium level. 5. Anemia. Follow up on hemoglobin, hematocrit. Transfuse packed red blood cells as needed. 6. Diabetes mellitus. Continue to monitor blood sugar, as well as sliding scale insulin. 7. Severe protein calorie malnutrition. The patient is to continue parenteral nutrition. 8. Gastrointestinal prophylaxis. proton pump inhibitor. 9. Deep vein thrombosis prophylaxis. Lovenox. cc: Angel Muro MD
--- NOTE | 2018-03-27 18:18 | PROGRESS NOTE ---
DATE: 03/27/2018 SUBJECTIVE: Patient was much more awake today. He is alert and oriented. He has family at the bedside. He had surgery on 03/23/2018, lysis of adhesions, sigmoid colectomy and end colostomy with drainage of retroperitoneal abscess and takedown of the splenic flexure. OBJECTIVE: Vital Signs: Temperature 99.1 degrees, pulse 102, blood pressure 124/84. General: Patient was awake and alert in no acute distress. LABORATORY: WBC 7.99, hemoglobin 9.2, hematocrit 27.7, MCV 84.5, and platelets 234,000. Chemistry: Sodium 146, potassium 2.6, chloride 103, CO2 28, BUN 3, creatinine 0.7, and glucose 112. ASSESSMENT AND PLAN: 1. Status post sigmoid colon colectomy with end colostomy following with Dr. Velasquez awaiting pathology results. At the time of my evaluation, patient still had NG tube. We will follow Dr. Velasquez's recommendation on when to remove the NG tube and when to start allowing liquids. 2. Metabolic encephalopathy has improved. Patient is awake, alert, and oriented today. 3. Hypokalemia with replacement. 4. Anemia. Continue to monitor hemoglobin and hematocrit. PLAN: GI will continue to be available during his hospital course. Recommend he follow up with us as an outpatient. Further plans to be made according to the pathology results. Patient has been seen by Oncology. I have discussed this case with Dr. Astorga. Further plans will be made as needed. Dictated by DENISE Winter for Kranthi Astorga MD cc: DENISE Jarrett MD
[2018-03-27] MEDS: ALBUTEROL NEB INH SCH ×2 (19:46→23:36)
--- NOTE | 2018-03-27 19:58 | GENERAL SURGERY PROGRESS NOTE ---
DATE: 03/27/2018 SUBJECTIVE: He is much more alert, feels well. His ostomy is working. Pain is controlled. Hemodynamically, he is off vasopressors. NG tube output has been admitted to 300 mL every 8 hours as the bowel tends to, but mostly this is ice chips that he has taken. OBJECTIVE: General: He is alert. Abdomen: Ostomy pink, viable. Stool in the bag. MAREK drain serosanguineous. Abdomen is soft. Incisions intact. DIAGNOSTIC DATA: I have reviewed his labs. White count 7, hematocrit 27. Potassium is 2.6. He is being diuresed. MEDICATION: He is on antibiotics for the intra-abdominal abscess. He is on PPI. He is being diuresed, and his potassium is being repleted. ASSESSMENT AND PLAN: This is a 52-year-old gentleman status post sigmoid colectomy. 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 The pathology will determine this, as we did take adjacent biopsies. Clinically he is much improved. We will start him on some peripheral nutrition. I have discontinued his NG tube. We will get his Reveles catheter out when he is no longer being diuresed. Start him on peripheral nutrition. Otherwise, physical therapy and out of bed, moving him as much as possible. We need to limit sedating medications as much as possible for him. He does take benzodiazepines chronically, and he does have a p.r.n. ordered for this. We will continue to follow him closely. cc: Randi Velasquez MD [facility]
[2018-03-28] MEDS: ATIVAN IV PRN (01:27)
[2018-03-28] MEDS: MORPHINE IV PRN ×4 (02:24→21:24)
[2018-03-28] MEDS: ZOSYN 3.375 GM in NS 50 ML IV SCH ×4 (03:04→21:25)
[2018-03-28] MEDS: SODIUM CHLORIDE 0.9% INJ SCH (06:06)
[2018-03-28] MEDS: PROTONIX IV SCH (06:06)
[2018-03-28] MEDS ORDERED: MAGNESIUM SULFATE 1 GM/D5W 1 GM/100 ML IVPB IV ONE (06:23)
[2018-03-28] MEDS: HUMULIN R SUBQ SCH ×4 (06:29→21:23)
[2018-03-28 07:23] LABS: AGAP 13; BUN 5 mg/dL (8-22); CHLORIDE 105 mmol/L (98-107); COSMO 285; CREATININE 0.5 mg/dL (0.7-1.2); ESTIMATED GFR > 60; GLUCOSE 357 mg/dL (70-104); POTASSIUM 4.1 mmol/L (3.5-5.1); SODIUM 137 mmol/L (136-145); TCO2 19 mmol/L (25-35)
[2018-03-28 07:32] LABS: CALCIUM 6.2 mg/dL (8.8-10.2)
--- NOTE | 2018-03-28 08:01 | INFECTIOUS DISEASE PROGRESS NO ---
DATE: 03/28/2018 PRESENT ILLNESS: The patient is status post drainage of a large retroperitoneal abscess and sigmoid colectomy involving a large necrotic tumor. The patient has bibasilar infiltrates which I think represent pneumonia. The patient's procalcitonin is 16 and thus that is why I think the infiltrates represent pneumonia. 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 MEDICATIONS: The patient has been on vancomycin and Zosyn now for 11 days. PHYSICAL EXAMINATION: Vital Signs: Temperature is 99.4 degrees, pulse 105, respirations 22, blood pressure 114/83. General: This is an ill-appearing middle-aged male. He is in no acute distress. Head/eyes/ears/nose/throat: He can hear my spoken words and see near objects. He does not have any white patches on his tongue. Lungs: Clear to auscultation. Cardiovascular: Regular heart rate. Abdomen: It was soft and not tender to light palpation. The incision is intact and the colostomy is functioning well. Extremities: The patient's IV site is not erythematous. Neurologic: Patient is alert. He can move his extremities. There is no tremor. LAB AND X-RAY: There is no new radiographic yet for today. There is no CBC yet for today. The creatinine is 0.5. GFR is greater than 60. As mentioned above, the procalcitonin level is 16. The IgG level was 439. The abdominal drain culture is negative. ASSESSMENT AND PLAN: The patient has bilateral pneumonia and also has undergone drainage of a large retroperitoneal abscess. The patient also has an immunoglobulin deficiency, for which he was given IV immunoglobulin last night. Comorbidities in this patient include diabetes, probable colon cancer with spread beyond the tumor. As of yet, the patient's pathology report is still pending. COMORBIDITIES: The patient is a diabetic. He also appears to have a necrotic tumor, which most likely is going to be a malignancy. cc: Florencio Pemberton MD
[2018-03-28] MEDS ORDERED: CALCIUM GLUCONATE 2 GM in NS 100 ML IV ONE (08:21)
[2018-03-28] MEDS: ALBUTEROL NEB INH SCH ×5 (08:49→23:58)
[2018-03-28] MEDS: LASIX IV SCH (08:53)
[2018-03-28] MEDS: NICODERM PATCH TD SCH (08:53)
[2018-03-28] MEDS: BIDEX PO SCH ×3 (08:53→18:33)
[2018-03-28] MEDS: LOVENOX SUBQ SCH (08:53)
[2018-03-28] MEDS: PERIDEX MT SCH ×2 (08:53→21:25)
[2018-03-28] MEDS: RESTASIS 0.05% OPH DROPS BOTH EYES SCH ×2 (08:53→21:25)
[2018-03-28] MEDS: XANAX PO PRN ×2 (10:03→18:19)
--- NOTE | 2018-03-28 10:12 | GENERAL SURGERY PROGRESS NOTE ---
DATE: 03/28/2018 SUBJECTIVE: More alert, feeling well. Ostomy is functioning. Complaining of insomnia mostly. OBJECTIVE: Vital Signs: Blood pressure with actually systolics in the 120s this morning. Heart rate in the low 100s. No fevers. Oxygen saturation is low-to-mid 90s. General: Alert. Abdomen: Soft. MAREK drain serosanguineous. Ostomy is pink, viable. Stool in the bag. Labs: Pending this morning other than a creatinine of 0.5. Calcium is low at 6.2 and magnesium is 1.2. This is being repleted. His potassium is up to 4.1, glucose 160s to 300s. As far as medications, he is on peripheral nutrition and Lovenox, is being diuresed daily. ASSESSMENT AND PLAN: A 52-year-old gentleman status post Hiren's procedure for an obstructing colon mass. We will advance the diet to soft. He will need physical therapy. He is being treated with antibiotics appropriately for an intra-abdominal abscess found at the time of surgery. He is on a proton pump inhibitor. I have resumed his home Xanax as he is becoming a little tremulous. cc: Randi Velasquez MD
[2018-03-28] MEDS: CLINIMIX E 4.25%-5% SOLUTION 1,000 ML IV SCH (11:51)
--- NOTE | 2018-03-28 14:25 | PROGRESS NOTE ---
DATE: 03/28/2018 SUBJECTIVE: The patient was resting but he did arouse easily. He was awake and alert in no acute distress. Per nurse report, the patient had some confusion, a possibility that patient was going through withdrawals since he does take Xanax and he also takes Ambien at night for sleep at home. OBJECTIVE: Vital Signs: Temperature 97.6, pulse 102, respirations 17, blood pressure 84/58. Generally, the patient was resting and aroused easily. Abdomen with ostomy; some stool in the bag. MAREK drain draining serosanguineous fluid. Abdominal dressing intact. LABORATORY: Hematology 7.99, hemoglobin 9.2, hematocrit 27.7, MCV 84.5. Chemistry: Sodium 137, potassium 4.1, chloride 105, CO2 of 19. BUN 5, creatinine 0.5, glucose 357. Pathology is pending. ASSESSMENT AND PLAN: Obstructing colon mass, status post surgery, colectomy with colostomy. The patient's diet has been advanced. He seems to be tolerating. His NG tube was removed. Pathology is pending. GI will be following during his hospital course. Further plans will be made as needed. Awaiting pathology results. Patient has already been seen by oncology. I have discussed this case with Dr. Astorga. Dictated by DENISE Winter for Kranthi Astorga MD cc: DENISE Jarrett MD [facility]
--- NOTE | 2018-03-28 15:13 | PROGRESS NOTE ---
DATE: 03/28/2018 SUBJECTIVE: The patient is resting comfortable in bed. No new complaints today. OBJECTIVE: Vital Signs: Vital signs are as follows: Blood pressure is 86/64, pulse 106, respiratory rate 19, temperature is 97.6 degrees, HEENT: Atraumatic, normocephalic. Cardiovascular system: S1, S2. Respiratory system: Has evidence of good air entry bilaterally. Abdomen: The patient does have ostomy right in the left lower part of the abdomen. Also, wound dressings on the right side. Extremities: No evidence of edema. Central nervous system: No obvious focal deficit noted. LABS: Sodium is 137, potassium 3.1, chloride is 105, bicarbonate is 19. BUN is 5, creatinine 0.5. ASSESSMENT AND PLAN: 1. Metabolic encephalopathy. The patient is improving. Continue to follow up on patient's clinical progression. 2. Hypotension. Etiology not clear. We will maintain patient on intravenous fluids, as well as pressors . Check blood cultures and serial cardiac enzymes. 3. Status post sigmoid colon colectomy with end colostomy and lysis of adhesions , secondary to colonic mass. Surgery is following. 4. Focal tumor perforation with abscess, status post drainage of retroperitoneal abscess. Continue antibiotics. Surgery is following. 5. Anemia. Follow up on hemoglobin, hematocrit. Transfuse packed red blood cells as needed. 6. Diabetes mellitus. Continue blood sugar monitoring, as well as sliding scale insulin. 7. Severe protein calorie malnutrition. Continue parenteral nutrition. 8. Deep vein thrombosis prophylaxis. Lovenox. 9. Gastrointestinal prophylaxis. Proton pump inhibitor. cc: Angel Muro MD [facility]
[2018-03-28] MEDS: NS 1,000 ML IV SCH (15:30)
[2018-03-29] MEDS: ZOSYN 3.375 GM in NS 50 ML IV SCH ×6 (02:37→21:29)
[2018-03-29] MEDS: VANCOMYCIN 1,500 MG in NS 250 ML IV SCH (04:11)
[2018-03-29 05:31] LABS: BASO# 0.04 X1000 (0.0-0.2); BASO% 0.5 % (0.0-0.8); EOS# 0.33 X1000 (0.0-0.7); EOS% 3.7 % (0.0-10.0); HEMATOCRIT 26.7 % (42.0-52.0); HEMOGLOBIN 8.6 g/dL (14.0-18.0); IMM GRAN# 0.03 X1000 (0.0-0.04); IMM GRAN% 0.3 % (0.0-0.5); LYMPH# 2.17 X1000 (1.2-3.4); LYMPH% 24.5 % (20.5-51.1); MCH 27.8 PG (27-31); MCHC 32.2 g/dL (33-37); MCV 86.4 FL (81-99); MONO# 0.75 X1000 (0.11-0.59); MONO% 8.5 % (1.7-9.3); MPV 9.5 FL (7.4-10.4); NEUT# 5.53 X1000 (1.4-6.5); NEUT% 62.5 % (42.2-75.2); PLT 269 X1000 (130-400); RBC 3.09 XMIL (4.7-6.1); RDW 16.7 % (11.5-14.5); WBC 8.85 X1000 (4.8-10.8)
[2018-03-29 05:59] LABS: AGAP 10; ALB/GLOB RATIO 0.8; ALBUMIN 2.3 g/dL (3.5-5.0); ALKALINE PHOSPHATASE 106 U/L (32-122); BUN 9 mg/dL (8-22); CHLORIDE 95 mmol/L (98-107); COSMO 269; CREATININE 0.7 mg/dL (0.7-1.2); ESTIMATED GFR > 60; GLUCOSE 132 mg/dL (70-104); GOT 12 U/L (10-34); GPT 11 U/L (10-44); SODIUM 134 mmol/L (136-145); TCO2 29 mmol/L (25-35); TOTAL BILIRUBIN 0.53 mg/dL (0.20-1.00); TOTAL PROTEIN 5.3 g/dL (6.3-8.3)
[2018-03-29] MEDS: CLINIMIX E 4.25%-5% SOLUTION 1,000 ML IV SCH (06:06)
[2018-03-29] MEDS: PROTONIX IV SCH (06:06)
[2018-03-29] MEDS: SODIUM CHLORIDE 0.9% INJ SCH (06:06)
[2018-03-29] MEDS: HUMULIN R SUBQ SCH ×4 (06:50→21:27)
[2018-03-29] MEDS: PERIDEX MT SCH ×3 (07:50→21:29)
[2018-03-29] MEDS: LOVENOX SUBQ SCH ×2 (07:50→10:17)
[2018-03-29] MEDS: BIDEX PO SCH ×4 (07:51→17:59)
[2018-03-29] MEDS: RESTASIS 0.05% OPH DROPS BOTH EYES SCH ×3 (07:51→21:29)
[2018-03-29] MEDS: XANAX PO PRN ×2 (07:51→21:29)
[2018-03-29] MEDS: NICODERM PATCH TD SCH ×2 (07:51→10:17)
--- NOTE | 2018-03-29 13:38 | PROGRESS NOTE ---
DATE: 03/29/2018 SUBJECTIVE: Patient was asleep with eyes closed, in no acute distress. I did not wake him today. OBJECTIVE: Vital Signs: Temperature 98.7 degrees, pulse 98, respirations 22, blood pressure 112/61. DIAGNOSTIC DATA: Hematology: WBC 8.85, hemoglobin 8.6, hematocrit 26.7, MCV 86.4, platelets 269,000. Chemistry: Sodium 134, potassium 3.0, chloride 95, CO2 of 29, BUN 9, creatinine 0.7, glucose 132. ASSESSMENT AND PLAN: 1. Metabolic encephalopathy. Patient had some confusion yesterday, he was restarted on his Xanax that he takes at home. 2. Status post sigmoid colon colectomy with colostomy. Following with [facility]. Per nurse report, patient is tolerating his diet, but he has not eaten much today. We will continue to follow. 3. Anemia. Continue to follow hemoglobin and hematocrit. We will continue to follow during his hospital course and further plans to be made as needed. I have discussed this case with Dr. Astorga. Dictated by DENISE Winter for Kranthi Astorga MD cc: DENISE Jarrett MD [facility]
[2018-03-29] MEDS: NS 1,000 ML IV SCH ×2 (13:40→17:11)
[2018-03-29] MEDS ORDERED: POTASSIUM CHLORIDE 10% LIQUID PO ONE (14:20)
--- NOTE | 2018-03-29 14:25 | INFECTIOUS DISEASE PROGRESS NO ---
DATE: 03/29/2018 PRESENT ILLNESS: The patient is status post drainage of a large retroperitoneal abscess. He has bibasilar infiltrates that most likely are due to pneumonia. The patient also has an immunoglobulin deficiency. MEDICATIONS: The patient has been receiving vancomycin and Zosyn now for 12 days. PHYSICAL EXAMINATION: Vital Signs: Temperature is 98.7, pulse 98, respirations 22, blood pressure 112/61. Generally, this is an ill-appearing middle-aged male. He is in no acute distress. Head/Eyes/Ears/Nose/Throat: He can hear my spoken words and see near objects. He is not draining from his nose or ears. He does not have any white patches on his tongue. Lungs clear to auscultation. Cardiovascular: Regular heart rate. Abdomen is soft. It is not tender to light palpation. The incision is intact. The colostomy is working well. Cardiovascular: Heart rate is regular. Neurologic: The patient is alert. He can move his extremities. There is no tremor. Integument: IV sites are not erythematous or swollen. Extremities: The patient has a PICC in his arm, and it is functioning well, and the area is not erythematous or swollen. Neurologic: The patient is alert. He can move his extremities. There is no tremor. LABORATORY AND X-RAY: Creatinine is 0.7. GFR is greater than 60. CBC shows a white count of 8850, hemoglobin 8.6, and platelet count 269,000. There is no new radiographic study today. ASSESSMENT AND PLAN: The patient has bilateral pneumonia and the patient has undergone drainage of a large retroperitoneal abscess. The patient has an immunoglobulin deficiency, and he has received a dose of IVIG. I am going to get a portable chest x-ray on the patient. If the pneumonia has cleared, most likely I will stop his antibiotics because I think his abdominal abscess has been drained well and he does not have any evidence of an intra-abdominal infection remaining at this time. COMORBIDITIES: The patient is a diabetic. He has what is thought to be a necrotic malignant tumor. cc: Florencio Pemberton MD
[2018-03-29] MEDS: MAG-OX PO SCH (14:32)
[2018-03-29] MEDS: MORPHINE IV PRN ×2 (14:33→22:37)
--- NOTE | 2018-03-29 15:03 | Diag Imaging Result Doc PS360 ---
EXAM: CHEST-1 VIEW - 03/29/2018 HISTORY: pneumonia TECHNIQUE: Portable chest COMPARISON: 03/26/2018 FINDINGS: Heart size is normal. There has been interval decrease in ill-defined bilateral infiltrates. There are small bilateral pleural effusions. There is no pneumothorax identified. PICC remains in place. IMPRESSION: Interval decrease in ill-defined bilateral infiltrates. Small bilateral pleural effusions. Electronically signed by Roberto Johnson 03/29/2018 3:01 PM
[2018-03-29] MEDS: ALBUTEROL NEB INH SCH ×4 (15:25→23:42)
--- NOTE | 2018-03-29 18:34 | PROGRESS NOTE ---
DATE: 03/29/2018 SUBJECTIVE: The patient's encephalopathy continues to improve. He appeared quite awake at this point, following commands fairly well. Pathology still pending for colon mass. Blood pressure remains on the low side but stable and is not requiring pressors. No new complaints. No other acute events overnight. REVIEW OF SYSTEMS: Twelve point review negative except as per interval history. LABORATORY DATA: WBC 8.8, hemoglobin 8.6, hematocrit 26.7, platelets 269,000. Sodium 134, potassium 3.8, BUN 9, creatinine 0.7, glucose 124 to 180. IMAGING: Chest x-ray with decrease in ill-defined bilateral infiltrates. Still with small bilateral pleural effusions. OBJECTIVE: Vital Signs: T-max 98.9 degrees, pulse 96, respirations 20, blood pressure 124/70. O2 saturation 100%. General: No acute distress. HEENT: Normocephalic, atraumatic. Moist mucous membranes. No cervical adenopathy. Cardiovascular: Regular rate and rhythm. No murmurs noted. Pulmonary: Clear to auscultation bilaterally. Abdomen: Soft, minimal, expected postoperative tenderness. Surgical drain in place with sanguineous drainage. Bowel sounds decreased but present. Extremities: Peripheral pulses intact. No clubbing, cyanosis or edema. Neurologic: No focal deficits identified. Cranial nerves grossly intact. Psychiatric: Normal affect, now awake, alert, and oriented to person, place and time. Skin: No new rashes or lesions. ASSESSMENT/PLAN: 1. Colon mass with perforation and abscess, status post drainage and with pathology pending. Continue antibiotics with Zosyn and vancomycin. Infectious Disease following. 2. Possible pneumonia. Chest x-ray with questionable pneumonia but saturating well. No respiratory symptoms and on antibiotics as above. We will defer to Infectious Disease. 3. Hypertension. 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 Has been consistently with systolics in the high 80s and low 90s for the duration of his hospitalization. He has not been requiring pressors. Continue IV fluids and monitor. Likely stable for the floor if surgery is agreeable. 4. Metabolic encephalopathy, essentially resolved at this point, continue to monitor. 5. Anemia likely acute blood loss and probable post hemorrhagic anemia related to colon mass and perforation. Required transfusion on the but hemoglobin and hematocrit is essentially stable since then. 6. Diabetes mellitus, reasonable control on current regimen. Continue to monitor. 7. Severe protein calorie malnutrition, surgery advancing diet to soft. Will monitor response. 8. Hyponatremia, mild, asymptomatic, we will continue to monitor. 9. Hypokalemia. Will replete and monitor. 10. Deep vein thrombosis prophylaxis, sequential compression devices. DISPOSITION: Likely stable for the floor given relative stability of blood pressure. If he continues to tolerate diet and infection continues to improve then may be able to be discharged in the next 2-3 days.
--- NOTE | 2018-03-29 20:21 | GENERAL SURGERY PROGRESS NOTE ---
DATE: 03/29/2018 SUBJECTIVE: Doing well. Tolerating a diet. He is sore and has some stiffness in his back. No fevers. No tachycardia. OBJECTIVE: Vital signs: Blood pressure 113/67, oxygen 97%. General: Alert. Abdomen: Soft. Ostomy is pink. MAREK draining serosanguineous. DIAGNOSTIC DATA: White count is 8, hematocrit 26. Creatinine 0.7, glucose 130s. ASSESSMENT AND PLAN: This is a 52-year-old gentleman with status post sigmoid colectomy. His pathology is pending. Tolerating diet. His bowels are functioning well. We will remove his Reveles catheter, and it is okay to transfer him to the floor when cleared medically. Electrolytes are improving, but potassium remains low. We will continue intravenous replacement. cc: Randi Velasquez MD
[2018-03-30] MEDS: ZOSYN 3.375 GM in NS 50 ML IV SCH ×5 (03:12→23:26)
[2018-03-30] MEDS: VANCOMYCIN 1,500 MG in NS 250 ML IV SCH (04:32)
[2018-03-30] MEDS: MORPHINE IV PRN ×3 (05:20→19:37)
[2018-03-30] MEDS: HUMULIN R SUBQ SCH ×4 (06:35→20:27)
[2018-03-30] MEDS: PROTONIX IV SCH (06:35)
[2018-03-30] MEDS: CLINIMIX E 4.25%-5% SOLUTION 1,000 ML IV SCH ×2 (06:39→22:49)
[2018-03-30] MEDS: ALBUTEROL NEB INH SCH ×5 (07:39→23:08)
[2018-03-30] MEDS: XANAX PO PRN ×3 (07:52→20:25)
[2018-03-30] MEDS: NICODERM PATCH TD SCH (09:41)
[2018-03-30] MEDS: LOVENOX SUBQ SCH (09:42)
[2018-03-30] MEDS: BIDEX PO SCH ×3 (09:42→16:38)
[2018-03-30] MEDS: RESTASIS 0.05% OPH DROPS BOTH EYES SCH ×2 (09:42→20:26)
[2018-03-30] MEDS: MAG-OX PO SCH (09:42)
[2018-03-30] MEDS: PERIDEX MT SCH ×2 (09:43→20:26)
[2018-03-30 09:57] LABS: AGAP 12; BUN 9 mg/dL (8-22); CALCIUM 8.4 mg/dL (8.8-10.2); CHLORIDE 98 mmol/L (98-107); COSMO 270; CREATININE 0.7 mg/dL (0.7-1.2); ESTIMATED GFR > 60; GLUCOSE 148 mg/dL (70-104); MAGNESIUM 1.4 mg/dL (1.5-2.7); POTASSIUM 3.4 mmol/L (3.5-5.1); SODIUM 134 mmol/L (136-145); TCO2 24 mmol/L (25-35)
[2018-03-30] MEDS ORDERED: MAGNESIUM SULFATE 4 GM/S.W.I. 4 GM/100 ML IVPB IV ONE (10:04)
[2018-03-30 10:57] LABS: BASO# 0.05 X1000 (0.0-0.2); BASO% 0.6 % (0.0-0.8); EOS% 3.6 % (0.0-10.0); HEMATOCRIT 25.7 % (42.0-52.0); HEMOGLOBIN 7.9 g/dL (14.0-18.0); IMM GRAN# 0.03 X1000 (0.0-0.04); IMM GRAN% 0.4 % (0.0-0.5); LYMPH# 2.44 X1000 (1.2-3.4); LYMPH% 29.5 % (20.5-51.1); MCH 26.8 PG (27-31); MCHC 30.7 g/dL (33-37); MCV 87.1 FL (81-99); MONO# 0.94 X1000 (0.11-0.59); MONO% 11.4 % (1.7-9.3); MPV 9.9 FL (7.4-10.4); NEUT% 54.5 % (42.2-75.2); PLT 273 X1000 (130-400); RBC 2.95 XMIL (4.7-6.1); WBC 8.26 X1000 (4.8-10.8)
--- NOTE | 2018-03-30 12:20 | INFECTIOUS DISEASE PROGRESS NO ---
DATE: 03/30/2018 PRESENT ILLNESS: The patient is status post drainage of a large retroperitoneal abscess. The patient has bibasilar pneumonia and, also, he has an immunoglobulin deficiency. MEDICATIONS: This is the 13th day of treatment with vancomycin and Zosyn. PHYSICAL EXAMINATION: Vital Signs: Temperature is 98.5, pulse 97, respirations 16, blood pressure 100/62. Generally, the patient today does not look as ill appearing as he did yesterday. He is in no acute distress. He can hear my spoken words and see near objects. Neck: No stiffness. Lungs: Clear to auscultation. Cardiovascular: Heart rate is regular. Abdomen is soft and nontender. The patient's incision is intact and the colostomy is functional. Neurologic: The patient is awake. He can move his extremities. There is no tremor. Extremities: The patient has a PICC in his arm, and it is not swollen or erythematous at the site. LABORATORY DATA AND X-RAY: CBC today shows a white count of 8260, hemoglobin 7.9, and platelet count 273,000. The patient's creatinine is 0.7. GFR is greater than 60. Blood and abdominal cultures are negative. Chest x-ray shows decrease in the bibasilar infiltrates. The patient's pathology shows a diverticulitis with a perforation and abscess. ASSESSMENT AND PLAN: The patient has bilateral pneumonia. The patient had a large retroperitoneal abscess drained. I plan to continue with the antibiotics and I will repeat his chest x-ray at the beginning of next week. The patient already has received a dose of immunoglobulin because of his immunoglobulin deficiency. The pathology on the patient's biopsy showed that the patient had diverticulitis with a perforation and from that an abscess developed. The plan is to continue with the current antibiotics. The patient also had acute diverticulitis with perforation and abscess formation. For now, I am going to keep the patient's antibiotics going because he still has some infiltrates in his lungs. COMORBIDITIES: The patient is a diabetic. Fortunately, the colon resection showed that the patient does not have a malignancy, but did have a perforated diverticulitis. cc: Florencio Pemberton MD
--- NOTE | 2018-03-30 13:34 | PROGRESS NOTE ---
DATE: 03/30/2018 SUBJECTIVE: Patient is awake and alert. He has been moved out of the ICU onto the fourth floor. Patient reports not sleeping at night. He reports taking a higher dose of Xanax at home than he has ordered here in the hospital. He states he usually takes 1 mg of Xanax at least 3 times a day. Pathology from colon resection is back and shows small bowel serositis, acute diverticulitis with perforation, abscess formation and fibrosis, and patchy fat necrosis on the pelvic sidewall excision. There was no evidence of malignancy by pathology. OBJECTIVE: Vital Signs: Temperature 98.5 degrees, pulse 97, respirations 16, blood pressure 100/62. General: Patient is awake and alert, in no acute distress. He is complaining of anxiety and not sleeping. Abdomen: With dressing intact with some drainage noted. Ostomy with brown stool in the bag. LABORATORY: Hematology: WBC 8.26, hemoglobin 7.9, hematocrit 25.7, MCV 87.1, platelets 273. Chemistry: Sodium 134, potassium 3.4, chloride 98, CO2 24. BUN 9, creatinine 0.7, glucose 148. ASSESSMENT AND PLAN: 1. Colon mass with perforation and abscess. Pathology findings showing diverticulitis with abscess and perforation with no evidence of malignancy. 2. Pneumonia, on antibiotics. 3. Metabolic encephalopathy has improved. Currently, patient is awake and alert. He is complaining of anxiety and insomnia. Recommend the nurse check with his home pharmacy and, depending on what his usual Xanax dosage is, we can change that to his home dosage. 4. Anemia. Continue to monitor hemoglobin and hematocrit. PLAN: Continue current management per other medical team. GI will be available as needed. Recommend patient follow up with us as an outpatient. Patient was also seen by Dr. Astorga. Dictated by DENISE Winter for Kranthi Astorga MD cc: DENISE Jarrett MD
[2018-03-30] MEDS ORDERED: KLOR-CON PO ONE (14:31)
[2018-03-30] MEDS: NS 1,000 ML IV SCH (16:39)
--- NOTE | 2018-03-30 17:21 | PROGRESS NOTE ---
DATE: 03/30/2018 SUBJECTIVE: The patient resting on the bed. OBJECTIVE: Vital signs are as follows: Temperature 99, pulse 99, respiratory rate 18, blood pressure 98/60, oxygen 98%. HEENT: Atraumatic, normocephalic. Cardiovascular System: Muffled. Respiratory System: Good entry bilaterally. Abdomen has an ostomy in the lower left part of the abdomen and also wound dressings on the right side of the abdomen. No masses felt. Extremities: No evidence of edema. Central Nervous System: No obvious focal deficits noted. LABORATORY DATA: WBC is 8.26, hematocrit 25.7 with a platelet count of 273,000. Sodium is 134, potassium 3.4, chloride is 98, bicarb 24. BUN is 9, creatinine 0.7. ASSESSMENT AND PLAN: 1. Metabolic encephalopathy, resolved. 2. Status post sigmoid colon colectomy with end colostomy and lysis of adhesions secondary to colonic mass. The patient seems to be doing well postoperatively. He has been followed by the surgical team. 3. Focal tumor perforation with abscess. Status post drainage of retroperitoneal abscess. Continue antibiotics. Surgery is following. 4. Anemia. Follow up on hemoglobin, hematocrit. Transfuse PRBCs as needed. 5. Diabetes mellitus. Continue blood sugar monitor as well as sliding scale insulin. 6. Severe protein calorie malnutrition. Advance diet as tolerated. 7. Deep vein thrombosis prophylaxis; Lovenox. 8. Gastrointestinal prophylaxis, proton pump inhibitor. DISPOSITION: The patient is interested in going to rehab facility. Software Development Leader aware. cc: Angel Muro MD
[2018-03-30] MEDS: AMBIEN PO PRN (22:48)
--- NOTE | 2018-03-31 03:02 | GENERAL SURGERY PROGRESS NOTE ---
DATE: 03/30/2018 SUBJECTIVE: He states he is doing well, having some back pain. No fevers. No tachycardia. OBJECTIVE: Vital Signs: Systolic blood pressure remains about the 90s hovering around his baseline. Abdomen: Soft. Incision is intact. Ostomy pink, viable, stool in the bag. MAREK drain serosanguineous. LABORATORY DATA: White count is 8, hematocrit is 25, potassium is up to 3.4, creatinine 0.7, magnesium is up to 1.4. ASSESSMENT AND PLAN: The patient is a 52-year-old gentleman status post sigmoid colectomy. Pathology is consistent with a perforated diverticulitis. No malignancy was noted. We discussed this with him today. Continue to replete his electrolytes, have him on oral repletion. We will also give him some intravenous magnesium to hopefully help his absorption. Otherwise I think he is making significant strides in recovery and should be able to go home relatively soon and is most likely will need rehabilitation. We will keep him for the weekend. He is on antibiotics. I will plan on removing his drain in the next 24-48 hours. cc: Randi Velasquez MD
[2018-03-31] MEDS: VANCOMYCIN 1,500 MG in NS 250 ML IV SCH (03:34)
[2018-03-31] MEDS: ZOSYN 3.375 GM in NS 50 ML IV SCH ×4 (04:57→20:10)
[2018-03-31] MEDS: MORPHINE IV PRN ×4 (05:14→22:41)
[2018-03-31] MEDS: PROTONIX IV SCH ×2 (05:14→07:21)
[2018-03-31 06:21] LABS: BASO# 0.04 X1000 (0.0-0.2); BASO% 0.4 % (0.0-0.8); EOS% 4.5 % (0.0-10.0); HEMATOCRIT 30.8 % (42.0-52.0); HEMOGLOBIN 9.8 g/dL (14.0-18.0); IMM GRAN# 0.04 X1000 (0.0-0.04); IMM GRAN% 0.4 % (0.0-0.5); LYMPH# 3.06 X1000 (1.2-3.4); LYMPH% 34.2 % (20.5-51.1); MCH 27.3 PG (27-31); MCHC 31.8 g/dL (33-37); MCV 85.8 FL (81-99); MONO% 12.3 % (1.7-9.3); MPV 9.7 FL (7.4-10.4); NEUT% 48.2 % (42.2-75.2); PLT 317 X1000 (130-400); RBC 3.59 XMIL (4.7-6.1); WBC 8.94 X1000 (4.8-10.8)
[2018-03-31 06:48] LABS: AGAP 13; ALB/GLOB RATIO 0.8; ALBUMIN 2.6 g/dL (3.5-5.0); ALKALINE PHOSPHATASE 99 U/L (32-122); BUN 8 mg/dL (8-22); CALCIUM 8.7 mg/dL (8.8-10.2); CHLORIDE 99 mmol/L (98-107); COSMO 267; CREATININE 0.7 mg/dL (0.7-1.2); ESTIMATED GFR > 60; GLUCOSE 114 mg/dL (70-104); GOT 12 U/L (10-34); GPT 9 U/L (10-44); POTASSIUM 3.9 mmol/L (3.5-5.1); SODIUM 134 mmol/L (136-145); TCO2 22 mmol/L (25-35); TOTAL BILIRUBIN 0.42 mg/dL (0.20-1.00); TOTAL PROTEIN 5.7 g/dL (6.3-8.3)
[2018-03-31] MEDS: HUMULIN R SUBQ SCH ×3 (07:22→17:33)
[2018-03-31] MEDS: ALBUTEROL NEB INH SCH ×5 (07:34→23:30)
[2018-03-31] MEDS: XANAX PO PRN ×2 (08:16→20:10)
[2018-03-31] MEDS: LOVENOX SUBQ SCH (08:16)
[2018-03-31] MEDS: MAG-OX PO SCH (08:16)
[2018-03-31] MEDS: NICODERM PATCH TD SCH (08:16)
[2018-03-31] MEDS: BIDEX PO SCH ×3 (08:16→17:33)
[2018-03-31] MEDS: PERIDEX MT SCH ×2 (08:17→21:00)
[2018-03-31] MEDS: RESTASIS 0.05% OPH DROPS BOTH EYES SCH ×2 (08:17→20:12)
--- NOTE | 2018-03-31 13:37 | PROGRESS NOTE ---
DATE: 03/31/2018 INTERVAL HISTORY: Patient with improved p.o. intake. Some stool output from ostomy. Blood pressure remains low but stable. No new complaints. No acute events overnight. REVIEW OF SYSTEMS: A 12-point review of systems as per interval history. LABS: WBC 8.9, hemoglobin 9.8. Hematocrit 30.8, platelets 317. Sodium 134, potassium 3.9, creatinine 0.7, glucose 119 to 206. PHYSICAL EXAMINATION: Vitals: T-max 99.5, pulse is 97, respirations 16, blood pressure 94/57. O2 saturation 96% on room air. General: No acute distress. Vitals as above. HEENT: Normocephalic, atraumatic. Moist mucous membranes. Neck: No cervical adenopathy. Cardiovascular: Regular rate and rhythm. No murmurs, rubs or gallops. Pulmonary: Clear to auscultation bilaterally. Abdomen: Soft. Minimal postop tenderness. Two drains noted with serosanguineous drainage. Bowel sounds decreased but present. Surgical incision noted. Incision stapled. Clean, dry and intact. Ostomy noted in the left lower abdomen with small amounts of stool. Extremities: Peripheral pulses intact. No clubbing, cyanosis, or edema. Neurologic: No focal deficits identified. Cranial nerves grossly intact. Psychiatric: Normal affect. Awake, alert, oriented x3. Skin: No new rashes or lesions noted. ASSESSMENT AND PLAN: 1. Colon mass with perforation and abscess, status post drainage and excision with ostomy. Initial concern was for malignancy, but pathology showing only diverticulitis and abscess without any malignancy. On antibiotics with vancomycin and Zosyn as per Infectious disease who is following. Will continue to monitor. Assess serosanguineous output from his drains. Possible pneumonia. On antibiotics as per Infectious disease. No respiratory symptoms at this point and saturating well on room air. 2. Hypotension. Had a drop in his blood pressure postoperative, but otherwise has been stable with low normal to minimally low blood pressures. Continues to monitor. 3. Metabolic encephalopathy, resolved. 4. Anemia, likely acute blood loss anemia due to abscess and perforation. He required transfusion initially, but has been stable since then. 5. Diabetes mellitus. Reasonable control on current regimen. Continue to monitor. 6. Severe protein calorie malnutrition. Patient doing better with soft diet. Will continue to encourage p.o. intake and monitor. 7. Hyponatremia. Mild asymptomatic. No need for acute intervention at this time. 8. Hypokalemia, improved. Status post repletion. Continue to monitor. 9. Deep vein thrombosis prophylaxis. Sequential compression devices. DISPOSITION: Likely to rehab on Monday if bed is available. ID thinks patient is ready to be transitioned to p.o. antibiotics and surgery either remove drains or is okay with patient going to rehab with drains still in place. [facility]ED[facility]ATRIC CENTERAdriana
[2018-03-31] MEDS: NS 1,000 ML IV SCH ×2 (17:37)
[2018-03-31] MEDS: BENADRYL PO PRN (20:10)
[2018-03-31] MEDS: AMBIEN PO PRN (22:54)
[2018-04-01] MEDS: HUMULIN R SUBQ SCH ×5 (00:14→21:22)
[2018-04-01] MEDS: ZOSYN 3.375 GM in NS 50 ML IV SCH ×5 (00:14→21:15)
--- NOTE | 2018-04-01 01:36 | GENERAL SURGERY PROGRESS NOTE ---
DATE: 03/31/2018 SUBJECTIVE: Doing well. Ostomy is functioning. The pain is much better today. He seemed to rest last night. No fevers. PHYSICAL EXAMINATION: Vital signs: Pulse has been in the 90s. Blood pressure has been stable for him with systolics in the 90s. Abdomen: Soft. Ostomy is pink, viable. LABORATORY DATA: I reviewed his labs. White count is 8, hematocrit is 30. Creatinine is 0.7, potassium is up to 3.9. ASSESSMENT AND PLAN: A 52-year-old gentleman status post Hiren procedure for perforated diverticulitis. We will continue current care. I suspect he will be ready for rehab on Monday. I have encouraged him to be out of bed and ambulate as much as possible. Continue antibiotics for now. He is on Lovenox. cc: Randi Velasquez MD
[2018-04-01] MEDS: MORPHINE IV PRN ×3 (02:08→23:55)
[2018-04-01] MEDS: CLINIMIX E 4.25%-5% SOLUTION 1,000 ML IV SCH ×2 (02:09→17:14)
[2018-04-01] MEDS: VANCOMYCIN 1,500 MG in NS 250 ML IV SCH (03:58)
[2018-04-01] MEDS: PROTONIX IV SCH ×2 (05:12→07:05)
[2018-04-01] MEDS: XANAX PO PRN ×2 (05:12→18:42)
[2018-04-01] MEDS: ALBUTEROL NEB INH SCH ×5 (08:15→23:37)
[2018-04-01] MEDS: NS 1,000 ML IV SCH ×2 (11:17→23:55)
[2018-04-01] MEDS: BIDEX PO SCH ×3 (11:19→17:09)
[2018-04-01] MEDS: RESTASIS 0.05% OPH DROPS BOTH EYES SCH ×2 (11:19→21:25)
[2018-04-01] MEDS: LOVENOX SUBQ SCH (11:19)
[2018-04-01] MEDS: PERIDEX MT SCH ×2 (11:19→21:22)
[2018-04-01] MEDS: NICODERM PATCH TD SCH (11:20)
[2018-04-01] MEDS: MAG-OX PO SCH (11:20)
--- NOTE | 2018-04-01 13:48 | PROGRESS NOTE ---
DATE: 04/01/2018 SUBJECTIVE: The patient is resting comfortably in bed. OBJECTIVE: Vital signs: Temperature 98.4 degrees, pulse 99, respirations 20, blood pressure is 78/50, oxygen saturation is 96%. HEENT: Atraumatic, normocephalic. Cardiovascular: S1, S2. Respiratory: Has evidence of good air entry bilaterally. Abdomen: Patient does have an ostomy in the left lower part of the abdomen and also there is a surgical wound on the anterior aspect of the abdomen that looks like it has some areas of erythema as well as discharge. Extremities: No evidence of edema. Central nervous system: No obvious focal deficit noted. DIAGNOSTIC STUDIES: Blood sugar is 189. ASSESSMENT AND PLAN: 1. Metabolic encephalopathy. Resolved. 2. Status post sigmoid colon colectomy with end colostomy . The patient seems to be doing well postoperatively. However, the anterior abdominal wall surgical wound looks infected. The patient is being followed up by the surgical team. 3. Focal bowel perforation as well as abscess formation status post drainage of retroperitoneal abscess. Continue antibiotics. Surgery following. 4. Anemia. Follow up on hemoglobin and hematocrit. Transfuse packed red blood cells (PRBCs) as needed. 5. Diabetes mellitus. Continue blood sugar monitoring as well as sliding scale insulin. 6. Severe protein calorie malnutrition. Advance diet as tolerated. 7. Deep vein thrombosis (DVT) prophylaxis. Lovenox. 8. Gastrointestinal (GI) prophylaxis. Proton pump inhibitor (PPI). DISPOSITION: The patient would like to go to rehabilitation facility when ready for discharge. Supervisor Shuttle Veneering aware. cc: Angel Muro MD MTDD
--- NOTE | 2018-04-01 14:54 | GENERAL SURGERY PROGRESS NOTE ---
DATE: 04/01/2018 SUBJECTIVE: He is resting comfortably this morning. No events overnight. No fevers, no tachycardia. Blood pressure 101/65 and these have been better overnight. MAREK drain remained serosanguineous and glucose 133. ASSESSMENT/PLAN: 52-year-old gentleman status post Hiren procedure for perforated diverticulitis. He is doing well. Plan for rehab soon. cc: Randi Velasquez MD
[2018-04-01] MEDS ORDERED: NS 250 ML IV ONE (15:18)
[2018-04-01] MEDS: PROAMATINE PO SCH (16:01)
[2018-04-01] MEDS: AMBIEN PO PRN (21:47)
[2018-04-02] MEDS: XANAX PO PRN ×3 (02:53→21:05)
[2018-04-02] MEDS: VANCOMYCIN 1,500 MG in NS 250 ML IV SCH (02:59)
[2018-04-02] MEDS: MORPHINE IV PRN ×2 (05:23→17:54)
[2018-04-02] MEDS: ZOSYN 3.375 GM in NS 50 ML IV SCH ×2 (05:24→09:02)
[2018-04-02] MEDS: HUMULIN R SUBQ SCH ×4 (06:06→21:02)
[2018-04-02] MEDS: PROTONIX IV SCH (06:06)
[2018-04-02] MEDS: BENADRYL PO PRN (06:09)
[2018-04-02 06:29] LABS: BASO# 0.03 X1000 (0.0-0.2); BASO% 0.4 % (0.0-0.8); EOS# 0.33 X1000 (0.0-0.7); EOS% 4.2 % (0.0-10.0); HEMATOCRIT 28.2 % (42.0-52.0); HEMOGLOBIN 8.9 g/dL (14.0-18.0); IMM GRAN# 0.04 X1000 (0.0-0.04); IMM GRAN% 0.5 % (0.0-0.5); LYMPH# 2.32 X1000 (1.2-3.4); LYMPH% 29.4 % (20.5-51.1); MCH 27.7 PG (27-31); MCHC 31.6 g/dL (33-37); MCV 87.9 FL (81-99); MONO# 1.21 X1000 (0.11-0.59); MONO% 15.3 % (1.7-9.3); MPV 9.5 FL (7.4-10.4); NEUT# 3.96 X1000 (1.4-6.5); NEUT% 50.2 % (42.2-75.2); PLT 352 X1000 (130-400); RBC 3.21 XMIL (4.7-6.1); RDW 17.5 % (11.5-14.5); WBC 7.89 X1000 (4.8-10.8)
[2018-04-02 06:36] LABS: AGAP 14; ALB/GLOB RATIO 0.7; ALBUMIN 2.2 g/dL (3.5-5.0); ALKALINE PHOSPHATASE 98 U/L (32-122); BUN 6 mg/dL (8-22); CALCIUM 8.9 mg/dL (8.8-10.2); CHLORIDE 99 mmol/L (98-107); COSMO 264; CREATININE 0.7 mg/dL (0.7-1.2); ESTIMATED GFR > 60; GLUCOSE 141 mg/dL (70-104); GOT 11 U/L (10-34); GPT 7 U/L (10-44); POTASSIUM 3.5 mmol/L (3.5-5.1); SODIUM 132 mmol/L (136-145); TCO2 19 mmol/L (25-35); TOTAL BILIRUBIN 0.29 mg/dL (0.20-1.00); TOTAL PROTEIN 5.3 g/dL (6.3-8.3)
[2018-04-02 07:05] LABS: ANISOCYTOSIS OCCASIONAL; EOS 2 % (1-10); LYMPHS 23 % (21-51); MONO 9 % (1-9); SEGS 61 % (42-75)
[2018-04-02] MEDS: ALBUTEROL NEB INH SCH ×5 (07:32→23:07)
[2018-04-02] MEDS: LOVENOX SUBQ SCH (09:02)
[2018-04-02] MEDS: RESTASIS 0.05% OPH DROPS BOTH EYES SCH ×2 (10:43→21:07)
[2018-04-02] MEDS: PROAMATINE PO SCH ×3 (10:43→21:06)
[2018-04-02] MEDS: MAG-OX PO SCH (10:43)
[2018-04-02] MEDS: BIDEX PO SCH ×3 (10:43→21:06)
[2018-04-02] MEDS: NICODERM PATCH TD SCH (10:44)
[2018-04-02] MEDS: PERIDEX MT SCH ×2 (10:44→21:06)
--- NOTE | 2018-04-02 12:01 | PROGRESS NOTE ---
DATE: 04/02/2018 SUBJECTIVE: The patient states he is still having some trouble sleeping. His Xanax was increased to his home dosage, to see if that would help. OBJECTIVE: Vital Signs: Temperature 98 degrees, pulse 64, respirations 15, blood pressure 98/61. General: The patient is awake and alert, in no acute distress. Abdomen: Dressing in place. Some drainage noted. Ostomy with brown stool in bag. LABORATORY DATA: Hematology: White count 7.89, hemoglobin 8.9, hematocrit 28.2, MCV 87.9, platelets 352,000. Chemistry: Sodium 132, potassium 3.5, chloride 99, CO2 19, BUN 6, creatinine 0.7, glucose 141. ASSESSMENT AND PLAN: 1. Status post sigmoid colon colectomy and colostomy. Pathology did not show evidence of cancer. It showed diverticulitis and abscess. 2. Anemia, stable. Continue to monitor and transfuse packed red blood cells as needed. 3. Metabolic encephalopathy has resolved. Gastroenterology will continue to follow and be available as needed. I have discussed this case with Dr. Astorga. Dictated by DENISE Winter for Kranthi Astorga MD cc: DENISE Jarrett MD
--- NOTE | 2018-04-02 12:11 | PROGRESS NOTE ---
DATE: 04/02/2018 SUBJECTIVE: Patient resting in bed. No new complaints today. OBJECTIVE: Vital signs: Temperature 98 degrees, pulse 92, respiratory rate 20, blood pressure 98/61, oxygen saturation 97%. HEENT: Patient is atraumatic, normocephalic. Cardiovascular system: S1, S2. Respiratory system: Has evidence of good air entry bilaterally. Abdomen: The patient does have ostomy in the left lower quadrant region and also a surgical wound on the right side which is currently dressed. Extremities: No evidence of edema. Central nervous system: No obvious focal deficit noted. LABS: WBC is 7.89, hematocrit is 38.2, with a platelet count of 352,000. Sodium is 132, potassium 3.5, chloride 99, bicarb 19, BUN is 6, creatinine 0.7. ASSESSMENT AND PLAN: 1. Metabolic encephalopathy which is now resolved. 2. Status post Hiren procedure for perforated diverticulitis. Surgery following. 3. Anemia. Follow up on hemoglobin, hematocrit. Transfuse PRBCs as needed. 4. Diabetes mellitus. Monitor blood sugar levels and maintain patient on sliding scale insulin. 5. Deep vein thrombosis prophylaxis. Lovenox. 6. Gastrointestinal prophylaxis. PPI. 7. Disposition. Discharge to rehab once a bed is available. cc: Angel Muro MD
[2018-04-02] MEDS: CLINIMIX E 4.25%-5% SOLUTION 1,000 ML IV SCH (13:34)
--- NOTE | 2018-04-02 14:08 | GENERAL SURGERY PROGRESS NOTE ---
DATE: 04/02/2018 SUBJECTIVE: Doing well. No fevers, no tachycardia. OBJECTIVE: Vital Signs: Blood pressure 98/61, oxygen saturation 97%. Exam: MAREK drain, serosanguineous. Incisions are intact, some erythema. Some serosanguineous drainage. LABORATORY: White count 7, hematocrit 28. Creatinine 0.7, potassium 3.5. ASSESSMENT AND PLAN: This is a 52-year-old gentleman status post Hiren's procedure. We are waiting rehab bed. Otherwise, I removed his drain. He is on antibiotics. We will transition these to oral at discharge. Physical therapy, nutritional supplementation. cc: Randi Velasquez MD
--- NOTE | 2018-04-02 15:23 | Diag Imaging Result Doc PS360 ---
CHEST-PORTABLE - 04/02/2018 INDICATION: pneumonia COMPARISON: 03/29/2018 FINDINGS: Stable right PICC line in good position. There has been redistribution opacifications in the right lung base suggesting redistributing effusion or shifting atelectasis/infiltrate. There has been worsening opacification of the left lung base consistent with effusion and/or infiltrate. IMPRESSION: Shifting opacities in the lung bases. Overall little change from prior. Electronically signed by Isaias Starr 04/02/2018 3:21 PM
[2018-04-02] MEDS: NS 1,000 ML IV SCH (17:02)
--- NOTE | 2018-04-02 18:13 | INFECTIOUS DISEASE PROGRESS NO ---
DATE: 04/02/2018 PRESENT ILLNESS: Mr. Berg is status post drainage of retroperitoneal abscess with a sigmoid colectomy and end colostomy. The patient has had a bibasilar pneumonia, as well as an immunoglobulin deficiency. MEDICATIONS: Today is day 16 of Zosyn 3.375 g IV every 6 hours and vancomycin IV per pharmacy dosing. PHYSICAL EXAMINATION: Vital Signs: Temperature is 97.6, pulse rate 82, respiratory rate 20, blood pressure 98/61. O2 sat is 96% on room air. General: This is a chronically ill-appearing middle-aged gentleman. He is lying in the bed currently in no acute distress. HEENT: Atraumatic, normocephalic. Oral mucous membranes are pink and moist. Conjunctivae are pale. Neck: Supple. Trachea is midline. Cardiovascular: Heart rate and rhythm are regular. Normal sinus rhythm on the monitor. Respiratory: Lung sounds are diminished bilaterally. Abdomen: Soft, round and mildly tender with a dressing in place to his midline abdomen, as well as an ostomy with brown liquid stool in the bag. There is a PICC line in his right upper arm. The site is without edema, erythema or drainage. Neurologic: He is drowsy but arousable and oriented. He is able to move all his extremities with generalized weakness. Extremities: There is a 1 to 2+ pedal edema noted. LABORATORY AND X-RAY: Today his white count is 7.89, hemoglobin 8.9, platelet count 352,000. Creatinine is 0.7. Estimated GFR is greater than 60. Total bilirubin is 0.29, AST 11, ALT 7, alkaline phosphatase 98. His blood cultures x 3 sets have shown no growth. Also, no growth from his abdominal wound culture. No imaging reports today. ASSESSMENT AND PLAN: Ms Berg has been treated for bilateral pneumonia and retroperitoneal abscess. At this point, we will discontinue his antibiotics and recheck a chest x-ray this afternoon. We will also order a procalcitonin level. He has also received a dose of immunoglobulins for his deficiency. We will need to recheck his immunoglobulin levels in the next 6 to 8 weeks after discharge to see if this is a chronic problem. These plans have been discussed with and recommended by Dr. Pemberton. COMORBIDITIES: For Mr. Berg include diabetes mellitus and cigarette smoking , with COPD. Dictated by DENISE Mccoy for Florencio Pemberton MD This chart was documented by, DENISE Mccoy and accurately reflects the services performed, treatment plan and medical decisions as attested by the providers signature Florencio Pemberton MD. cc: Florencio Pemberton MD [facility]
[2018-04-02] MEDS: AMBIEN PO PRN (22:55)
[2018-04-03] MEDS: MORPHINE IV PRN ×3 (00:24→09:42)
[2018-04-03] MEDS: NS 1,000 ML IV SCH ×2 (00:37→06:08)
[2018-04-03] MEDS: PROTONIX IV SCH (06:08)
[2018-04-03] MEDS: CLINIMIX E 4.25%-5% SOLUTION 1,000 ML IV SCH (06:08)
[2018-04-03] MEDS: HUMULIN R SUBQ SCH ×4 (06:39→21:41)
[2018-04-03] MEDS: ALBUTEROL NEB INH SCH ×5 (07:35→22:50)
[2018-04-03] MEDS: ZOFRAN IV PRN (09:42)
--- NOTE | 2018-04-03 12:24 | PROGRESS NOTE ---
DATE: 04/03/2018 SUBJECTIVE: The patient reports some problems with pain today and nausea. He reports having an episode of vomiting. He states he has recently gotten something for nausea and pain, and he is feeling better. He just wants to rest. OBJECTIVE: Vital signs: Temperature is 98.6, pulse 102, respirations 20, blood pressure 102/58. General: The patient is resting, in no acute distress. He has just received medications for nausea and pain. DIAGNOSTIC DATA: Hematology shows WBC of 7.89, hemoglobin 8.9, hematocrit 28.2, platelets 352. Chemistry shows sodium 132, potassium 3.5, chloride 99, CO2 is 19, BUN is 6, creatinine 0.7, glucose 141. ASSESSMENT AND PLAN: 1. Status post sigmoid colon colectomy and colostomy with no evidence of malignancy per pathology. 2. Abdominal pain, nausea, with an episode of vomiting. Continue symptomatic treatment. Continue PPI. 3. Anemia, stable. We will continue to follow hemoglobin and hematocrit. GI will continue to follow. Recommend to continue PPI and symptomatic treatment for pain and/or nausea/vomiting. Further plans will be made according to his progress. I have discussed this case with Dr. Astorga. Dictated by DENISE Winter for Kranthi Astorga MD cc: DENISE Jarrett MD
[2018-04-03] MEDS: LOVENOX SUBQ SCH (12:35)
[2018-04-03] MEDS: MAG-OX PO SCH (12:35)
[2018-04-03] MEDS: BIDEX PO SCH ×3 (12:35→18:25)
[2018-04-03] MEDS: PROAMATINE PO SCH ×3 (12:35→18:59)
[2018-04-03] MEDS: RESTASIS 0.05% OPH DROPS BOTH EYES SCH ×2 (12:35→21:45)
[2018-04-03] MEDS: NICODERM PATCH TD SCH (12:35)
[2018-04-03] MEDS: PERIDEX MT SCH ×2 (12:36→21:45)
--- NOTE | 2018-04-03 13:31 | Diag Imaging Result Doc PS360 ---
EXAM: ABDOMEN FLAT/UPRIGHT 04/03/2018 HISTORY: abdominal pain TECHNIQUE: Flat and upright abdomen COMMENT: There is contrast medium in the rectum. There is less small bowel and colonic gas than on the previous study of 03/21/2018. There are surgical skin clips in the midline from the epigastrium to nearly the symphysis pubis. There is no evidence organomegaly or mass. IMPRESSION: Nonspecific abdomen, postsurgical changes. Electronically signed by Cristino Quinones 04/03/2018 1:28 PM
[2018-04-03] MEDS ORDERED: CATHFLO IV ONE (13:38)
[2018-04-03] MEDS ORDERED: STERILE WATER INJ. INJ ONE (13:38)
[2018-04-03] MEDS: XANAX PO PRN ×2 (13:54→21:45)
--- NOTE | 2018-04-03 16:51 | INFECTIOUS DISEASE PROGRESS NO ---
DATE: 04/03/2018 PRESENT ILLNESS: The patient is status post drainage of retroperitoneal abscess and a sigmoid colectomy with end colostomy. The patient may have a bibasilar pneumonia versus atelectasis. MEDICATIONS: Yesterday the patient's antibiotics were discontinued. PHYSICAL EXAMINATION: Vital Signs: Temperature is 98.6 degrees, pulse 102, respirations 20, blood pressure 102/58. General: This is a somewhat ill-appearing, middle-aged male. He is actually looking a lot better than he did a few days ago and certainly weeks ago also. Head, eyes, ears, nose, and throat: He can hear my spoken words and see near objects. He does not have any white coating on his tongue. Neck: No meningismus. Lungs: Clear to auscultation. Cardiovascular: Regular heart rate. Abdomen: Soft and nontender. The patient's incision is intact. There are some reddish areas on the incision. The patient has a colostomy; it is functional. Neurologic: Patient is alert. He can move his extremities. There is no tremor. LAB AND X-RAY: There is no new lab today. Chest x-ray shows bibasilar opacities. It could be pneumonia or it could be atelectasis. ASSESSMENT AND PLAN: The patient may have bibasilar pneumonia versus atelectasis. For now, I am going to continue holding his antibiotics. A procalcitonin level has been ordered and the results are pending. 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 He has received IVIG in the hospital and approximately 6-8 weeks we will repeat his immunoglobulin levels to see if they have fallen again or not. COMORBIDITIES: Mr. Berg has diabetes mellitus, cigarette smoking, and COPD. cc: Florencio Pemberton MD
--- NOTE | 2018-04-03 18:44 | PROGRESS NOTE ---
DATE: 04/03/2018 SUBJECTIVE: The patient is complaining of abdominal pain and back pain, he also states that he vomited right before breakfast. OBJECTIVE: Vital Signs: Temperature 97.8 degrees, blood pressure 100/62, heart rate 90, respirations 18, O2 saturation 96% on room air. General: This is a chronically ill-appearing elderly male lying in bed in no acute distress. Heart: S1, S2 normal. Lungs: Clear to auscultation bilaterally. Abdomen: Positive bowel sounds. Soft, nontender, nondistended. Extremities: No edema, no cyanosis. Neuro: The patient is alert and oriented. LABS: None. Abdominal x-ray shows postsurgical changes. ASSESSMENT AND PLAN: 1. Pneumonia. The patient has completed the antibiotic therapy. A procalcitonin level is currently pending. 2. Immunoglobulin deficiency. The patient received intravenous immunoglobulin during this hospitalization. Dr. Pemberton will follow the patient as outpatient. 3. Metabolic encephalopathy. Resolved. 4. Status post sigmoid colectomy with end colostomy with lysis of adhesions. The pathology report shows some acute diverticulitis but no evidence of malignancy. 5. Tobacco dependence. Aware. 6. Hyponatremia. Stable. 7. Deep vein thrombosis prophylaxis. Continue on Lovenox. 8. Disposition. The patient will be discharged to [facility] once medically stable. cc: Terrie Figueroa MD
[2018-04-03] MEDS: MEGACE LIQUID PO SCH (23:02)
[2018-04-03] MEDS: PERCOCET-5 PO PRN (23:02)
[2018-04-04] MEDS: AMBIEN PO PRN (00:51)
[2018-04-04] MEDS: CLINIMIX E 4.25%-5% SOLUTION 1,000 ML IV SCH (04:18)
[2018-04-04] MEDS: XANAX PO PRN ×2 (04:18→16:09)
[2018-04-04] MEDS: HUMULIN R SUBQ SCH ×3 (06:37→16:20)
[2018-04-04 06:44] LABS: BASO# 0.05 X1000 (0.0-0.2); BASO% 0.7 % (0.0-0.8); EOS# 0.33 X1000 (0.0-0.7); EOS% 4.7 % (0.0-10.0); HEMATOCRIT 29.5 % (42.0-52.0); HEMOGLOBIN 9.1 g/dL (14.0-18.0); IMM GRAN# 0.12 X1000 (0.0-0.04); IMM GRAN% 1.7 % (0.0-0.5); LYMPH# 2.27 X1000 (1.2-3.4); MCH 27.7 PG (27-31); MCHC 30.8 g/dL (33-37); MCV 89.7 FL (81-99); MONO# 1.19 X1000 (0.11-0.59); MONO% 16.8 % (1.7-9.3); MPV 9.3 FL (7.4-10.4); NEUT# 3.13 X1000 (1.4-6.5); NEUT% 44.1 % (42.2-75.2); PLT 454 X1000 (130-400); RBC 3.29 XMIL (4.7-6.1); RDW 17.8 % (11.5-14.5); WBC 7.09 X1000 (4.8-10.8)
[2018-04-04 07:01] LABS: AGAP 12; BUN 7 mg/dL (8-22); CALCIUM 9.1 mg/dL (8.8-10.2); CHLORIDE 99 mmol/L (98-107); COSMO 265; CREATININE 0.6 mg/dL (0.7-1.2); ESTIMATED GFR > 60; GLUCOSE 150 mg/dL (70-104); MAGNESIUM 1.6 mg/dL (1.5-2.7); PHOSPHORUS 5.2 mg/dL (2.7-4.5); POTASSIUM 3.5 mmol/L (3.5-5.1); SODIUM 132 mmol/L (136-145); TCO2 21 mmol/L (25-35)
[2018-04-04] MEDS: PERCOCET-5 PO PRN ×2 (07:28→13:53)
[2018-04-04] MEDS: SODIUM CHLORIDE 0.9% INJ SCH (07:28)
[2018-04-04] MEDS: PROTONIX IV SCH (07:28)
[2018-04-04] MEDS: ALBUTEROL NEB INH SCH ×3 (07:48→15:06)
[2018-04-04] MEDS: RESTASIS 0.05% OPH DROPS BOTH EYES SCH (09:49)
[2018-04-04] MEDS: MEGACE LIQUID PO SCH (09:49)
[2018-04-04] MEDS: MAG-OX PO SCH (09:49)
[2018-04-04] MEDS: PROAMATINE PO SCH ×2 (09:49→13:51)
[2018-04-04] MEDS: NICODERM PATCH TD SCH (09:49)
[2018-04-04] MEDS: PERIDEX MT SCH (09:49)
[2018-04-04] MEDS: BIDEX PO SCH ×2 (09:50→13:52)
[2018-04-04] MEDS: LOVENOX SUBQ SCH (09:50)
--- NOTE | 2018-04-04 11:39 | DISCHARGE SUMMARY ---
ADMISSION DATE: 03/17/2018 DISCHARGE DATE: 04/04/2018 PRIMARY CARE PHYSICIAN: Rama Gilliland MD FINAL DISCHARGE DIAGNOSES: 1. Status post sigmoid colectomy with end colostomy and lysis of adhesions secondary to an obstructing colonic mass. 2. Focal tumor perforation with retroperitoneal abscess, status post drainage. 3. Hypotension. 4. Metabolic encephalopathy. 5. Iron deficiency anemia. 6. Hypomagnesemia. 7. Diabetes mellitus type 2. 8. Severe protein-calorie malnutrition. 9. Pneumonia. 10. Immunoglobulin deficiency. 11. Tobacco dependence. 12. Chronic hyponatremia. 13. Anxiety disorder. 14. Insomnia. 15. Gastroesophageal reflux disease. 16. Situational depression. CONSULTATIONS: 1. ID consultation with Florencio Pemberton MD 2. General Surgery consultation with Randi Velasquez MD 3. Oncology consultation with Nayan Biggs MD 4. GI consultation with Kranthi Astorga MD IMAGIN. Head CT performed on 03/17/2018, which revealed chronic intracranial changes. 2. Echocardiogram performed on 03/20/2018, that revealed an EF of 65% with normal wall motion. No pericardial effusion seen. 3. CT of the abdomen and pelvis performed on 03/20/2018, that revealed an obstructing lesion in the descending colon and cholelithiasis. 4. CT of the chest performed on 03/20/2018, that revealed bilateral pleural effusions and basilar atelectasis versus pneumonia. PROCEDURES: 1. Extensive lysis of adhesions. 2. Sigmoid colectomy with end-colostomy. 3. Drainage of a retroperitoneal abscess. HOSPITAL COURSE: Mr. Rocha is a 52-year-old male with a history of anxiety disorder, diabetes, and hypertension who presented to the ER with confusion and abdominal pain. On admission, the patient was noted to be hypotensive and there was concern about sepsis, so the patient was admitted to the ICU and started on broad-spectrum antibiotics after cultures were obtained as well as IV fluids. Despite being on adequate therapy, the patient continued to be hypotensive and started to run a fever. The blood cultures showed no growth. The patient's stool for C difficile was also checked and that was unremarkable. Infectious Disease was consulted for further assistance. A CT of the chest, abdomen, and pelvis was done that revealed an obstructing lesion in the distal descending colon. As a result, GI and General Surgery were consulted. After discussion, they decided that the patient would benefit from surgical intervention. The patient was taken to the OR on 03/23/2018, at which time extensive lysis of adhesions was done as well as a sigmoid colectomy with end colostomy, as well as drainage of a retroperitoneal abscess. The patient did well postoperatively. He did have some mild confusion for a few days, but that resolved. Oncology was initially consulted because there was concern that this could represent a malignancy. Ultimately, the pathology report came back showing acute diverticulitis with perforation and abscess, and fibrosis. There was no malignancy seen. The patient continued to improve clinically and was started on a clear liquid diet that was slowly advanced as tolerated. The patient was then transferred to the medical floor and physical therapy was consulted. The patient was treated for pneumonia during this hospitalization. Immunoglobulin levels were checked and the patient was noted to have an immunoglobulin deficiency, so he was treated with IVIg during this hospitalization. He will have repeat levels checked upon discharge and Dr. Pemberton will decide whether the patient needs further IVIg treatment. The patient was noted to be very weak and requested inpatient rehab placement. The patient improved clinically and all antibiotics were discontinued. On the day of discharge, the patient was noted to have a white blood cell count of 7 with a hemoglobin of 9.1 and hematocrit of 29. The patient's BUN and creatinine were noted to be 7 and 0.6, respectively. The patient is currently medically stable for discharge to inpatient rehab. DISCHARGE MEDICATIONS: 1. Restasis 1 drop to both eyes twice a day. 2. Ambien 5 mg p.o. at bedtime p.r.n. 3. Xanax 1 mg p.o. every 6 hours p.r.n. for anxiety. 4. Percocet 5, 1 tab oral every 6 hours p.r.n. for pain. 5. Fenofibrate 160 mg p.o. daily. 6. Prilosec 20 mg p.o. daily. 7. Aspirin 81 mg p.o. daily. 8. Melatonin 3 mg p.o. at bedtime. 9. Vitamin D3 5000 units oral daily. 10. Zoloft 50 mg p.o. daily. 11. Metformin 500 mg p.o. twice a day. DISCHARGE DIET: 1800-calorie ADA diet. ACTIVITY: As tolerated. FOLLOWUP INSTRUCTIONS: The patient will need to follow up with Dr. Velasquez as scheduled by his clinic. The patient will need to follow up with Dr. Gilliland upon discharge from rehab. The patient will need to follow up with Dr. Astorga upon discharge from rehab as well. cc: Terrie Figueroa MD
[2018-04-04 11:40] VITALS: BP 101/62
--- NOTE | 2018-04-04 13:50 | PROGRESS NOTE ---
DATE: 04/14/2018 SUBJECTIVE: The patient was resting with eyes closed. His mother was at the bedside. I have spoken with her today. Patient has orders for transfer to a rehab facility. OBJECTIVE: Vital Signs: Temperature 97.7, pulse 68, respirations 20, blood pressure 101/62. Generally, the patient was in no acute distress. He was asleep. LABORATORY: Hematology: WBC 7.09, hemoglobin 9.1, hematocrit 29.5, MCV 89.7, platelet 454,000. Chemistry: Sodium 132, potassium 3.5, chloride 99, CO2 of 21. BUN 7, creatinine 0.6, glucose 150. ASSESSMENT AND PLAN: 1. Status post sigmoid colon colectomy and colostomy. There was no evidence of malignancy per pathology report. 2. Abdominal pain. Nausea. Continue symptomatic treatment and continue proton pump inhibitor once discharged. 3. Anemia has been stable. Recommend patient follow with us as an outpatient after he gets out of rehab. Recommended to call back if he has any problems for a sooner appointment. I have discussed this case with Dr. Astorga. Dictated by DENISE Winter for Kranthi Astorga MD cc: DENISE Jarrett MD
--- NOTE | 2018-04-04 23:05 | INFECTIOUS DISEASE PROGRESS NO ---
DATE: 04/04/2018 PRESENT ILLNESS: Mr. Berg is status post sigmoid colectomy with colostomy and retroperitoneal abscess drainage. He also had a bibasilar pneumonia versus atelectasis on the chest x-ray previously. The patient also has an immunoglobulin deficiency. MEDICATIONS: He has been off his antibiotics for a couple of days at this point. PHYSICAL EXAMINATION: Vital Signs: Temperature is 97.7 degrees, pulse rate 68 , respiratory rate 20, blood pressure 101/62, O2 saturation 95% on room air. General: This is a chronically ill- appearing, middle-aged gentleman. He is lying in the bed, currently in no acute distress. HEENT: Atraumatic, normocephalic. Oral mucous membranes are pink and moist. Conjunctivae are pale. Neck: Supple. Trachea is midline. Cardiovascular: Heart rate is regular. There is 1+ pretibial edema bilaterally. Respiratory: Lung sounds are clear in the upper lobes, diminished in the bases. Abdomen: Soft, round, and mildly tender. Incision with effie is open to air, with some erythema noted to the incision line. There is no induration. The colostomy bag has liquid brown stool noted. Neurologic: He is awake, alert, and oriented. Able to move his extremities with generalized weakness. LABORATORY AND X-RAY: Today, his white count is 7.09, hemoglobin 9.1, platelet count 454,000. Creatinine is 0.6. Estimated GFR is greater than 60. No imaging reports today. ASSESSMENT AND PLAN: Mr. Berg has been discharged to go to [facility] today. Dr. Pemberton has spoken with Dr. Velasquez who will be coming to look at his incision before the patient goes to rehab. His procalcitonin level was 0.17, which makes it unlikely that there is a respiratory tract infection. The only followup that he will need from us will be a check of his immunoglobulin levels in 6 to 8 weeks. At that point, he should be home and will probably have home health care, so I will see if they can draw his blood at that time. These plans have been discussed and recommended by Dr. Pemberton. COMORBIDITIES: for Mr. Berg include that he is a cigarette smoker with COPD, diabetes mellitus, protein-calorie malnutrition, iron deficiency anemia, gastroesophageal reflux disease, and anxiety disorder. Dictated by DENISE Mccoy for Florencio Pemberton MD This chart was documented by, DENISE Mccoy and accurately reflects the services performed, treatment plan and medical decisions as attested by the providers signature Florencio Pemberton MD. cc: Florencio Pemberton MD [facility]
--- NOTE | 2018-04-05 02:13 | GENERAL SURGERY PROGRESS NOTE ---
DATE: 04/04/2018 SUBJECTIVE: He is doing well. He is eating. His ostomy is functioning. He does have some oily drainage from the lower wound and some erythema. Some discomfort. No fevers. No tachycardia. OBJECTIVE: Vital Signs: Pulse 70s, blood pressure [*] LABORATORY DATA: Creatinine 0.6, potassium is up to 3.5, glucose 150 is 160, magnesium 1.6. ASSESSMENT AND PLAN: The patient is a 52-year-old gentleman status post Hiren's procedure for perforated diverticulitis. I removed some effie and drained some fat necrosis, no purulence. Fascia seems intact. Continue local wound care. We will remove the effie next week. Otherwise he is going to rehabilitation today. Encouraged him to continue nutritional supplementation and physical rehabilitation. cc: Randi Velasquez MD
== END 2018-04-04 18:02 | DRG 853 ==
LOC: SUPCPDRO → ED 18:11 → SUATTDRO 23:24 → ICU 23:24 → 4N 03-29 16:33
PROVIDERS: ATTEND Internal Medicine
PROC: GE.COLS (2018-03-23 10:25)
CPT/HCPCS: 36430; 36569; 51701; 70450; 71010; 71045; 71250; 74019; 74020; 74176; 74270; 80048; 80053; 80076; 80101; 80184; 80202; 80301; 80307; 80324; 80345; 80346; 80353; 80358; 80361; 80365; 81001; 82009; 82140; 82378; 82533; 82550; 82607; 82728; 82746; 82784; 82805; 82948; 83036; 83540; 83550; 83690; 83735; 83880; 83992; 84100; 84132; 84145; 84439; 84443; 84484; 85014; 85018; 85025; 85027; 85045; 85610; 85651; 85730; 86140; 86850; 86900; 86901; 86920; 87040; 87070; 87324; 87449; 88304; 88305; 88309; 88313; 93005; 93010; 93306; 94640; 94761; 94799; 96365; 96366; 96368; 96375; 97110; 97162; 97167; 97530; 97535; 99285; A9270; C9113; G0431; G0434; G0479; G0480; J0131; J0330; J0610; J1561; J1650; J1940; J2060; J2270; J2405; J2543; J2997; J3010; J3370; J3475; J3480; J3486; J7030; J7040; J7042; J7050; J7120; P9016; P9047; P9612; Q9958; S0030; S0164; S0179; XXXXX

== ENCOUNTER 2018-07-27 07:17 | Inpatient (IN) ==
[2018-07-24 16:35] LABS: BASO# 0.08 X1000 (0.0-0.2); BASO% 1.6 % (0.0-0.8); EOS# 0.22 X1000 (0.0-0.7); EOS% 4.3 % (0.0-10.0); HEMATOCRIT 39.5 % (42.0-52.0); HEMOGLOBIN 13.5 g/dL (14.0-18.0); LYMPH% 50.6 % (20.5-51.1); MCH 31.7 PG (27-31); MCHC 34.2 g/dL (33-37); MCV 92.7 FL (81-99); MONO# 0.53 X1000 (0.11-0.59); MONO% 10.3 % (1.7-9.3); MPV 9.5 FL (7.4-10.4); NEUT# 1.71 X1000 (1.4-6.5); NEUT% 33.2 % (42.2-75.2); PLT 261 X1000 (130-400); RBC 4.26 XMIL (4.7-6.1); RDW 15.8 % (11.5-14.5); WBC 5.14 X1000 (4.8-10.8)
[2018-07-24 17:20] LABS: AGAP 19; BUN 17 mg/dL (8-22); CALCIUM 9.5 mg/dL (8.8-10.2); CHLORIDE 101 mmol/L (98-107); COSMO 282; CREATININE 0.9 mg/dL (0.7-1.2); ESTIMATED GFR > 60; GLUCOSE 93 mg/dL (70-104); POTASSIUM 3.9 mmol/L (3.5-5.1); SODIUM 141 mmol/L (136-145); TCO2 21 mmol/L (25-35)
[2018-07-27] MEDS ORDERED: DIPRIVAN 1% ONE (07:39)
[2018-07-27] MEDS ORDERED: STERILE WATER INJ. ONE (07:41)
[2018-07-27] MEDS ORDERED: NORCURON ONE (07:41)
[2018-07-27] MEDS ORDERED: PEPCID ONE (07:43)
[2018-07-27] MEDS ORDERED: VALIUM ONE (07:43)
[2018-07-27] MEDS ORDERED: KEFZOL 1 GM/D5W 1 GM/50 ML IVPB ONE (07:43)
[2018-07-27] MEDS ORDERED: LR 1,000 ML ONE (07:44)
[2018-07-27] MEDS ORDERED: SUFENTA ONE (08:33)
[2018-07-27 09:29] LABS: URINE SOURCE CATH
[2018-07-27 09:39] LABS: BILIRUBIN URINE NEGATIVE (NEGATIVE); BLOOD URINE NEGATIVE (NEGATIVE); COLOR YELLOW; GLUCOSE URINE NEGATIVE (NEGATIVE); KETONE URINE NEGATIVE (NEGATIVE); LEUKOCYTES URINE NEGATIVE (NEGATIVE); NITRITE URINE NEGATIVE (NEGATIVE); PROTEIN URINE NEGATIVE (NEGATIVE); SP GRAVITY URINE 1.005; TURBIDITY URINE CLEAR (CLEAR); UROBILINOGEN URINE NORMAL (NORMAL)
[2018-07-27 09:41] LABS: UR EPITHELIAL CELLS <10 /HPF (<10); URINE BACTERIA NEGATIVE /HPF; URINE RBC <10 /HPF (<10); URINE WBC <10 /HPF (<10)
[2018-07-27] MEDS ORDERED: NEOSTIGMINE ONE (11:46)
[2018-07-27] MEDS ORDERED: OFIRMEV 1000 MG/ISOTONIC SOLN 1,000 MG/100 ML BOTTLE ONE (11:46)
[2018-07-27] MEDS: LR 1,000 ML IV SCH ×2 (14:00→21:16)
[2018-07-27] MEDS: MORPHINE IV PRN ×2 (14:19→16:55)
[2018-07-27] MEDS: XANAX PO PRN ×2 (16:26→22:36)
[2018-07-27] MEDS: OFIRMEV 1000 MG/ISOTONIC SOLN 1,000 MG/100 ML BOTTLE IV SCH ×2 (17:01→23:16)
--- NOTE | 2018-07-27 22:08 | OPERATIVE NOTE ---
PROCEDURE DATE: 07/27/2018 PREOPERATIVE DIAGNOSIS: History of perforated diverticulitis with abscess. POSTOPERATIVE DIAGNOSIS: History of perforated diverticulitis with abscess. PROCEDURE PERFORMED: Reversal of end-colostomy with extensive lysis of adhesions and mobilization of the splenic flexure. BUSINESS PLANNER: Dr. Edmond was present for the creation of the stapled end-to-end anastomosis. ESTIMATED BLOOD LOSS: 100 mL. SPECIMENS: Colostomy and donuts from the staple line. ANESTHESIA: General. INDICATION: A gentleman who had a severe episode of perforated diverticulitis with a large retroperitoneal abscess that was excised and treated with a Hiren procedure. It has been 2 to 3 months ago. He has done well and presents back for after completion colonoscopy for reversal of his colostomy. OPERATIVE FINDINGS: There were dense inflammatory adhesions within the pelvis along the lateral sidewall coursing along the iliac vessels and the ureter which were all visualized and protected. There was adequate length of the colostomy, and pulsatile bleeding noted with a strong pulse in the colostomy. The rectal stump was at or below the peritoneal reflection. OPERATIVE NOTE: Risks, benefits and alternatives discussed with patient. He consented to the procedure. He was seen preoperatively. Surgical site was confirmed. He was taken to the operating room and placed in supine position. General anesthesia was induced. He was then placed in lithotomy. Reveles was placed as well as nasogastric tube. His colostomy was closed after time- out with a Prolene suture, and his abdomen was prepped with Betadine and draped in usual fashion. After time-out, we opened his previous incision gaining exposures, protecting the underlying bowel, which was quite adherent. We then extensively lysed adhesions along the bilateral lower quadrants of the pelvis. There were numerous loops of small bowel stuck down the pelvis, but we were able to mobilize this out and identify the rectal stump. The ureter was almost completely skeletonized along its course along the pelvic brim given the dense inflammation here, but it was protected throughout this, as well as the iliac vessels. At this point, we took down the colostomy, mobilized this back, fully taking down the splenic flexure back to the transverse colon and middle colics. This provided adequate length. A pursestring was fired, and the colostomy was excised, and a 28 EEA anvil was placed and secured. We then passed dilators up from below, identified the rectal stump. Dr. Edmond passed an EEA stapler, and we created a stapled end-to- end anastomosis. We submerged under water, and a leak test was performed with the proctoscope, and there was no leaking noted. We confirmed hemostasis. He was quite oozy through the procedure, but no focal areas of bleeding were noted. We placed omentum over the small bowel and placed it back in a neutral position, and then closed the ostomy site with 0 Vicryl, and the fascia was closed with #1 running looped PDS suture. Skin was closed with surgical clips. He tolerated all this well. A wound protector was used. There was no spillage of stool during the case. Reveles catheter was continued with clear urine. He was awakened and transferred to recovery. We did confirm nasogastric tube placement. Counts were correct. I spoke to the family. cc: Randi Velasquez MD
[2018-07-27] MEDS: PERIDEX MT SCH (23:17)
[2018-07-28] MEDS: MORPHINE IV PRN ×4 (03:33→22:20)
[2018-07-28] MEDS: XANAX PO PRN ×3 (03:34→21:03)
[2018-07-28] MEDS: OFIRMEV 1000 MG/ISOTONIC SOLN 1,000 MG/100 ML BOTTLE IV SCH ×2 (04:23→14:46)
[2018-07-28] MEDS: LR 1,000 ML IV SCH (06:40)
[2018-07-28 07:11] LABS: BASO# 0.01 X1000 (0.0-0.2); BASO% 0.1 % (0.0-0.8); EOS# 0.02 X1000 (0.0-0.7); EOS% 0.2 % (0.0-10.0); HEMATOCRIT 31.7 % (42.0-52.0); HEMOGLOBIN 10.8 g/dL (14.0-18.0); LYMPH# 3.18 X1000 (1.2-3.4); LYMPH% 30.3 % (20.5-51.1); MCH 32.3 PG (27-31); MCHC 34.1 g/dL (33-37); MCV 94.9 FL (81-99); MONO# 0.48 X1000 (0.11-0.59); MONO% 4.6 % (1.7-9.3); MPV 9.6 FL (7.4-10.4); NEUT# 6.79 X1000 (1.4-6.5); NEUT% 64.8 % (42.2-75.2); PLT 198 X1000 (130-400); RBC 3.34 XMIL (4.7-6.1); RDW 15.2 % (11.5-14.5); WBC 10.48 X1000 (4.8-10.8)
[2018-07-28] MEDS: PRILOSEC PO SCH (07:38)
[2018-07-28 07:39] LABS: AGAP 14; CHLORIDE 102 mmol/L (98-107); GLUCOSE 102 mg/dL (70-104); POTASSIUM 3.5 mmol/L (3.5-5.1); SODIUM 139 mmol/L (136-145); TCO2 23 mmol/L (25-35)
[2018-07-28 07:40] LABS: BUN 11 mg/dL (8-22); CALCIUM 8.3 mg/dL (8.8-10.2); COSMO 277; CREATININE 0.6 mg/dL (0.7-1.2); ESTIMATED GFR > 60
[2018-07-28] MEDS: MAG-OX PO SCH (09:29)
[2018-07-28] MEDS: LOVENOX SUBQ SCH (09:29)
[2018-07-28] MEDS: PERIDEX MT SCH ×2 (09:29→20:01)
[2018-07-28] MEDS: AMBIEN PO PRN (20:01)
--- NOTE | 2018-07-28 22:18 | GENERAL SURGERY PROGRESS NOTE ---
DATE: 07/28/2018 Mr. Rocha is 1 day after closure of his colostomy. He is afebrile. Hemodynamics were satisfactory. White count is 10,500, hemoglobin 10.8. Chemistry is okay. He is asking for his usual medicines which include Xanax as well as Ambien at night. Continue with NG suction. cc: MD Randi Luke MD
[2018-07-29] MEDS: ZOFRAN IV PRN (01:31)
[2018-07-29] MEDS: XANAX PO PRN ×3 (04:01→18:41)
[2018-07-29] MEDS: LR 1,000 ML IV SCH ×2 (06:09)
[2018-07-29] MEDS: MORPHINE IV PRN ×3 (06:25→15:35)
[2018-07-29] MEDS: PRILOSEC PO SCH (06:27)
--- NOTE | 2018-07-29 09:17 | GENERAL SURGERY PROGRESS NOTE ---
DATE: 07/29/2018 He is 2 days after closure of his colostomy. Afebrile. Hemodynamics are satisfactory. NG put out 1050. He has had no flatus yet. We will continue with NG suction today and he can have ice chips. Perhaps by tomorrow, he can have his NG tube out and start on liquids. cc: MD Randi Luke MD
[2018-07-29] MEDS: MAG-OX PO SCH (13:54)
[2018-07-29] MEDS: LOVENOX SUBQ SCH (13:54)
[2018-07-29] MEDS: PERIDEX MT SCH ×2 (13:55→22:49)
[2018-07-29] MEDS: AMBIEN PO PRN (22:50)
[2018-07-30] MEDS: ZOFRAN IV PRN ×2 (01:19→23:11)
[2018-07-30] MEDS: MORPHINE IV PRN ×3 (01:36→20:01)
[2018-07-30] MEDS: LR 1,000 ML IV SCH ×3 (01:36→17:42)
[2018-07-30] MEDS: XANAX PO PRN ×3 (04:07→17:37)
[2018-07-30] MEDS: PRILOSEC PO SCH (08:07)
[2018-07-30] MEDS: PERIDEX MT SCH (08:07)
[2018-07-30] MEDS: CYMBALTA PO SCH (08:07)
[2018-07-30] MEDS: LOVENOX SUBQ SCH (08:08)
[2018-07-30] MEDS: MAG-OX PO SCH (08:08)
--- NOTE | 2018-07-30 15:23 | GENERAL SURGERY PROGRESS NOTE ---
DATE: 07/30/2018 SUBJECTIVE: Doing well. Having return of bowel function. NG tube has been minimal. No fevers. No tachycardia. OBJECTIVE: Blood pressure 142/75. Abdomen is soft. Incision is intact. Labs reviewed, nothing new today. ASSESSMENT AND PLAN: A 53-year-old gentleman status post takedown of end colostomy. He is doing well. He has had return of bowel function. We will discontinue his nasogastric tube. Give him clear liquids, low volume tonight and advance tomorrow. He is on Lovenox. Decrease his intravenous fluids to 50. He is on appropriate home medication including a proton pump inhibitor. cc: Randi Velasquez MD
[2018-07-31] MEDS: XANAX PO PRN ×4 (00:03→21:31)
[2018-07-31] MEDS: AMBIEN PO PRN ×2 (00:03→23:20)
[2018-07-31] MEDS: MORPHINE IV PRN ×3 (00:08→21:30)
[2018-07-31] MEDS: PRILOSEC PO SCH (07:49)
[2018-07-31] MEDS: CYMBALTA PO SCH (08:08)
[2018-07-31] MEDS: LOVENOX SUBQ SCH (08:09)
[2018-07-31] MEDS: MAG-OX PO SCH (08:09)
[2018-07-31] MEDS: PERIDEX MT SCH ×3 (08:09→20:22)
[2018-07-31] MEDS: LR 1,000 ML IV SCH (14:33)
--- NOTE | 2018-07-31 20:26 | GENERAL SURGERY PROGRESS NOTE ---
DATE: 07/31/2018 SUBJECTIVE: Doing well, bowel function. No fevers, no tachycardia. PHYSICAL EXAMINATION: General: He is alert. Exam: Abdomen is soft. Incision is intact. LABORATORY: No new labs this morning. ASSESSMENT AND PLAN: A 53-year-old gentleman status post takedown of end colostomy. We will advance his diet today of GI soft and plan for home soon with home PT. cc: Randi Velasquez MD
[2018-08-01] MEDS: XANAX PO PRN ×3 (04:36→23:04)
[2018-08-01] MEDS: PRILOSEC PO SCH (06:50)
[2018-08-01] MEDS: MORPHINE IV PRN ×2 (09:29→23:04)
[2018-08-01] MEDS: CYMBALTA PO SCH (09:30)
[2018-08-01] MEDS: MAG-OX PO SCH (09:30)
[2018-08-01] MEDS: PERIDEX MT SCH (09:30)
[2018-08-01] MEDS: LOVENOX SUBQ SCH (09:30)
[2018-08-01] MEDS: ZOFRAN IV PRN ×2 (09:30→17:35)
--- NOTE | 2018-08-01 19:36 | GENERAL SURGERY PROGRESS NOTE ---
DATE: 08/01/2018 SUBJECTIVE: He is doing well. No fevers. No tachycardia. He is tolerating diet. Some pain. He wants to try oral medications at this point. He is voiding without difficulty. EXAMINATION: On exam, his abdomen is soft. Incision is intact. He is alert. ASSESSMENT AND PLAN: A 53-year-old gentleman status post end-colostomy reversal. He is doing well. Will Hep-Lock his fluids, give him p.o. pain medicine. If he tolerates this, we will let him go home in the morning. cc: Randi Velasquez MD
[2018-08-01] MEDS ORDERED: PHENERGAN PR ONE (20:43)
[2018-08-01] MEDS: LR 1,000 ML IV SCH (20:53)
[2018-08-01] MEDS: AMBIEN PO PRN (23:04)
[2018-08-02] MEDS: PERIDEX MT SCH ×3 (00:24→22:29)
[2018-08-02] MEDS: ZOFRAN IV PRN ×2 (01:39→07:54)
[2018-08-02] MEDS: LR 1,000 ML IV SCH (04:26)
[2018-08-02] MEDS: MORPHINE IV PRN (05:07)
[2018-08-02] MEDS: XANAX PO PRN ×3 (05:07→22:28)
[2018-08-02] MEDS: PRILOSEC PO SCH (06:41)
[2018-08-02] MEDS: MAG-OX PO SCH (08:01)
[2018-08-02] MEDS: LOVENOX SUBQ SCH (08:01)
[2018-08-02] MEDS: CYMBALTA PO SCH (08:01)
[2018-08-02] MEDS: NORCO-10 PO PRN ×2 (08:02→22:28)
--- NOTE | 2018-08-02 20:43 | GENERAL SURGERY PROGRESS NOTE ---
DATE: 08/02/2018 SUBJECTIVE: Doing well. Bowel function. Tolerating a diet. No pain. No fevers, voiding. OBJECTIVE: On exam, his abdomen is soft. Incision intact. Cardiovascular normal rate. ASSESSMENT AND PLAN: A 53-year-old gentleman status post end-colostomy reversal. He is doing well. He did have a bout of nausea he said. Still moving somewhat slow, but pain is reasonably controlled. We will observe him today maybe home later today or tomorrow. He does have home health arranged for home physical therapy. Otherwise, he is on a GI soft diet. Lovenox and appropriate home medications. cc: Randi Velasquez MD
[2018-08-03] MEDS: AMBIEN PO PRN (00:05)
[2018-08-03] MEDS: LR 1,000 ML IV SCH (04:50)
[2018-08-03] MEDS: NORCO-10 PO PRN (06:56)
[2018-08-03 07:49] VITALS: BP 137/59
[2018-08-03] MEDS: PRILOSEC PO SCH (08:33)
[2018-08-03] MEDS: MAG-OX PO SCH (09:35)
[2018-08-03] MEDS: CYMBALTA PO SCH (09:35)
[2018-08-03] MEDS: LOVENOX SUBQ SCH (09:36)
[2018-08-03] MEDS: PERIDEX MT SCH (09:36)
[2018-08-03] MEDS: XANAX PO PRN (11:25)
--- NOTE | 2018-08-03 18:40 | DISCHARGE SUMMARY ---
ADMISSION DATE: 07/27/2018 DISCHARGE DATE: 08/03/2018 ADMITTING DIAGNOSIS: History of perforated diverticulitis. DISCHARGE DIAGNOSIS: History of perforated diverticulitis. PROCEDURES PERFORMED: Take down of end colostomy. HISTORY OF PRESENT ILLNESS: This is a 53-year-old gentleman who had a severe episode of perforated diverticulitis with large abscess. He underwent a Hiren's procedure. He has recovered well and elected to have this colostomy reversed. HOSPITAL COURSE: The patient was admitted following his surgery. He was advanced per the ERAS pathway. He did well. We had him on PPI as well as prophylactic Lovenox and SCDs. Reveles catheter was removed on postop day #2 and he was able to void. His diet was advanced. He had return of bowel function around day #3. Incision remained intake. Postop labs were appropriate. His diet was advanced. Pain control was somewhat of an issue but we were able to get him back on his previous home medications and were able to control this. It is felt safe for discharge home. On the day of his discharge, his abdomen is soft, bowels are functioning, and he is voiding. Incision intact. No fever. FOLLOWUP APPOINTMENTS: With me in one week for staple removal. DISPOSITION: Home with Physical Therapy. DISCHARGE CONDITION: Good. DISCHARGE DIET: GI soft. DISCHARGE MEDICATIONS: Home medications plus Bodega and MiraLAX as needed. cc: Randi Velasquez MD
== END 2018-08-03 15:40 | disposition home health service (06) | DRG 337 ==
LOC: PAT 07:17 → OPS 07:17 → DIRADM 13:06 → 4N 13:31
PROVIDERS: ADMIT Surgery; ATTEND Surgery
CPT/HCPCS: 80048; 81001; 82948; 85025; 88307; 94760; 94761; 94799; 97110; 97116; 97162; 97530; A9270; J0131; J0690; J1650; J2270; J2405; J7120; XXXXX

== ENCOUNTER 2018-10-16 18:21 | Observation (INO) ==
--- NOTE | 2018-10-16 19:10 | PROVIDER DOCUMENTATION ---
HPI-Neurological Disorder - General Chief Complaint: Seizure Stated Complaint: SEIZURE Time Seen by Provider: 10/16/18 18:36 Source: patient, family Allergies/Adverse Reactions: Patient Allergies Allergy/AdvReac Type Severity Reaction Status Date / Time No Known Allergies Allergy Verified 10/01/18 19:40 Home Medications: Home Medication List Medication Instructions Recorded Confirmed Last Taken Type Omeprazole [Prilosec] 20 mg PO DAILY@0700 07/11/12 07/27/18 07/23/18 07:00 History Aspirin 81 mg PO DAILY 07/12/12 07/27/18 07/27/18 07:00 History Melatonin 3 mg PO QHS 07/12/12 07/27/18 07/26/18 21:00 History Alprazolam [Xanax] 1 mg PO Q6H PRN PRN tablet 04/04/18 07/27/18 07/26/18 21:00 Rx Biotin 5,000 mcg SUBLINGUAL DAILY 07/24/18 07/27/18 07/26/18 10:00 History Cinnamon Bark [Cinnamon] 500 mg PO DAILY 07/24/18 07/27/18 07/26/18 10:00 His tory Cyclosporine 0.05% Oph Drops 1 drop OP DAILY 07/24/18 07/28/18 07/26/18 10:00 History [Restasis 0.05% Oph Drops] Duloxetine [Cymbalta] 120 mg PO DAILY 07/24/18 07/27/18 07/26/18 10:00 History Fluticasone 50 Mcg Nasal [place] 1 spray INTRANASAL DAILY 07/24/18 07/27/18 07/26/18 09:00 History [Flonase] Folic Acid 1 mg PO DAILY 07/24/18 07/27/18 07/27/18 07:00 History Ibuprofen 400 mg PO PRN PRN 07/24/18 07/24/18 Unknown History Multivitamin with Minerals 1 ea PO DAILY 07/24/18 07/27/18 07/26/18 10:00 History [Multiple Vitamin] Promethazine [Phenergan] 25 mg PO Q6H PRN PRN 07/24/18 07/24/18 Unknown History Zolpidem [Ambien] 10 mg PO HS PRN PRN 07/28/18 07/28/18 Unknown History Hydrocodone/Acetaminophen [[place] 1 ea PO Q6H PRN #30 tab 08/03/18 Unknown Rx 10-325 Tablet] Polyethylene Glycol 3350 [Miralax] 17 gm PO DAILY #1 08/03/18 Unknown Rx - History of Present Illness-Neuro Nature of Presenting Problem: 53 YO white male pmh for prior mass in brain brought in by EMS after witness seizure by mom and brother. Seen with eyes rolling back in head, but no head trauma, tongue biting, or uncontrolled bowels/bladder. It lasted for 3 minutes and pt was post ictal with confusion afterwards. He takes Xanax up to 4 times daily which he has been on for years, he denies missing any days of his medication. Upon arrival to the ED, pt is AAOx4. He currently denies any ShOB, CP, headache, abdominal complaints, urinary complaints, recent fever, sick contacts. I received a sign out from Dr Gutiérrez and I obtained a brief h/o from parents. Patient was said to have been unresponsive for 3 mins with his yes rolled backwards around 5pm today. no tonic clonic activities note. he became confused till the arrival of EMS. Takes xanax prn for seizures and has been taking it at least ones a day. last took xanax in the morning today Headache Location: denies: frontal, temporal, occipital, parietal, global, other Onset/Duration: reports: 1 hour ago Timing: reports: gone now Context: reports: seizure activity New weakness or altered sensation location:: reports: none Gait Baseline: walks without assistance Associated Symptoms: reports: denies symptoms Similar Symptoms Previously?: Yes (remote, 9 years ago) Recently seen or treated by another doctor?: No - Seizure First time to have a seizure?: No Witnessed seizure?: Yes How many seizure episodes?: 1 Duration of episode? (mins): 3 Episode Frequency: other (one prior episode) Status Epilepticus: No Character of Seizure: reports: lost consciousness, staring. denies: generalized shaking all over, shaking in one area, incontinent of urine, incontinent of stool, stopped breathing Post-ictal Symptoms: reports: confusion Seizure related injury: none Review of Systems - Adult - REVIEW OF SYSTEMS - ADULT Constitutional: reports: no symptoms reported Eyes: reports: no symptoms reported Ears, Nose, Mouth & Throat: reports: no symptoms reported Cardiovascular: reports: no symptoms reported Respiratory: reports: no symptoms reported Gastrointestinal: reports: no symptoms reported Genitourinary: reports: no symptoms reported Musculoskeletal: reports: no symptoms reported Integumentary: reports: no symptoms reported Neurological: reports: no symptoms reported Psychiatric: reports: anxiety, insomnia Endocrine: reports: no symptoms reported Hematologic/Lymphatic: reports: no symptoms reported Past History - Adult - PAST MEDICAL HISTORY-ADULT Review of Records: reports: Nursing Assessment Review, Medications Reviewed, Social history reviewed & non-contributory. Major Childhood Illnesses: reports: denies history Cardiovascular: reports: denies history Respiratory: reports: denies history Gastrointestinal: reports: denies history Obstetrical/Gynecological: reports: denies history Genitourinary: reports: denies history Musculoskeletal: reports: denies history Neurological: reports: denies history Endocrine/Immune: reports: denies history Other Conditions: reports: denies history - PRIOR SURGERIES/PROCEDURES Surgical/Procedure History: reports: bowel surgery, other (craniotomy) - IMMUNIZATION STATUS Childhood Immunizations: See Nurse Assessment Flu Vaccine: See Nurse Assessment - FAMILY HISTORY Family History: reviewed, not pertinent - SOCIAL HISTORY Smoking: denies Substance Use: denies Living Situation: family Physical Exam- Neurological - Physical Exam-Neuro Initial Vital Signs Reviewed: Yes General Appearance: appears well, alert, no apparent distress Eye Exam: bilateral eye: normal inspection, PERRL, EOMI, photophobia, vision changes HENMT: normocephalic/atraumatic, moist mucous membranes, TMs normal Head Injury: negative: no evidence of injury, active bleeding, Kwan's Sign, raccoon eyes Neck: non-tender, full range of motion Respiratory: chest non-tender, lungs clear, normal breath sounds, no respiratory distress Cardiovascular: normal peripheral pulses, regular rate, rhythm Abdominal Exam: normal bowel sounds, non tender, soft Lymphatic: no adenopathy Extremity: normal range of motion, non-tender, normal inspection, no pedal edema , no calf tenderness, normal capillary refill process development technician Exam: normal hearing, normal speech, PERRL Coordination/Gait: normal finger to nose Motor/Sensory: no motor deficit, no sensory deficit Neurologic: process development technician II-XII nml as tested, no motor/sensory deficits Integumentary: normal color Psych/Mental Status: normal mood/affect, oriented x 3 - Glascow Coma Scale Best Eye Response: (4) open spontaneously Best Verbal Response: (5) oriented Best Motor Response: (6) obeys commands Total Glascow Score: 15 Progress - PLAN OF CARE/RESULTS Progress/Plan/Lab Results: Vital Signs - 8 hr 10/16/18 18:31 10/16/18 18:47 10/16/18 18:49 Temperature 98.9 F Pulse Rate 97 H 85 Respiratory Rate 20 25 H Blood Pressure 173/114 178/110 O2 Sat by Pulse Oximetry 99 10/16/18 18:50 10/16/18 19:00 10/16/18 19:02 Temperature Pulse Rate 85 80 82 Respiratory Rate 22 12 13 Blood Pressure 158/100 O2 Sat by Pulse Oximetry 97 96 97 10/16/18 19:10 10/16/18 19:20 10/16/18 19:30 Temperature Pulse Rate 83 81 82 Respiratory Rate 17 21 18 Blood Pressure O2 Sat by Pulse Oximetry 96 98 96 10/16/18 19:32 10/16/18 19:40 10/16/18 19:50 Temperature Pulse Rate 78 81 86 Respiratory Rate 22 16 25 H Blood Pressure 160/99 O2 Sat by Pulse Oximetry 98 98 98 10/16/18 20:00 10/16/18 20:02 10/16/18 20:10 Temperature Pulse Rate 82 78 82 Respiratory Rate 16 17 23 Blood Pressure 166/94 O2 Sat by Pulse Oximetry 98 99 98 10/16/18 20:28 10/16/18 20:30 10/16/18 20:32 Temperature Pulse Rate 80 90 Respiratory Rate 18 19 Blood Pressure 169/106 O2 Sat by Pulse Oximetry 99 99 99 10/16/18 20:40 10/16/18 20:50 Temperature Pulse Rate 79 81 Respiratory Rate 16 16 Blood Pressure O2 Sat by Pulse Oximetry 98 98 Laboratory Results - last 24 hr 10/16/18 10/16/18 10/16/18 19:50 19:50 19:50 WBC 9.44 RBC 3.74 L Hgb 11.6 L Hct 34.7 L MCV 92.8 MCH 31.0 MCHC 33.4 RDW Std Deviation 15.0 H Plt Count 279 MPV 9.5 Immature Gran % (Auto) 0.2 Neut % (Auto) 73.2 Lymph % (Auto) 17.8 L Mcculloch % (Auto) 8.4 Eos % (Auto) 0.2 Baso % (Auto) 0.2 Immature Gran # (Auto) 0.02 Neut # (Auto) 6.91 H Lymph # (Auto) 1.68 Mcculloch # (Auto) 0.79 H Eos # (Auto) 0.02 Baso # (Auto) 0.02 Sodium 137 Potassium 3.1 L Chloride 99 Carbon Dioxide 25 Anion Gap 13 BUN 14 Creatinine 0.8 Estimated GFR/1.73 m2 > 60 BUN/Creatinine Ratio 18 Glucose 146 H POC Glucose 134 H Estimat Average Glucose Hemoglobin A1c Calculated Osmolality 277 Calcium 9.4 Total Bilirubin 0.43 AST 20 ALT 11 Alkaline Phosphatase 95 Creatine Kinase 94 Total Protein 7.5 Albumin 4.1 Globulin 3.4 Albumin/Globulin Ratio 1.2 Urine Source 10/16/18 10/16/18 19:50 21:29 WBC RBC Hgb Hct MCV MCH MCHC RDW Std Deviation Plt Count MPV Immature Gran % (Auto) Neut % (Auto) Lymph % (Auto) [place] % (Auto) Eos % (Auto) Baso % (Auto) Immature Gran # (Auto) Neut # (Auto) Lymph # (Auto) M[place] # (Auto) Eos # (Auto) Baso # (Auto) Sodium Potassium Chloride Carbon Dioxide Anion Gap BUN Creatinine Estimated GFR/1.73 m2 BUN/Creatinine Ratio Glucose POC Glucose Estimat Average Glucose 105 Hemoglobin A1c 5.3 Calculated Osmolality Calcium Total Bilirubin AST ALT Alkaline Phosphatase Creatine Kinase Total Protein Albumin Globulin Albumin/Globulin Ratio Urine Source CLEAN CATCH Orders Category Date Time Status Admit - [facility] Routine AdmDCTranf 10/16/18 21:21 Active Activity - Up with Assistance ORDERED Care 10/16/18 21:21 Active Apply Mechanical Device [QM] ORDERED Care 10/16/18 21:21 Active FSBS/Accucheck Result AC + HS Care 10/16/18 21:21 Active Intake and Output-Strict ORDERED Care 10/16/18 21:21 Active Update & Confirm Home Medicati ROUTINE Care 10/16/18 20:55 Active Vital Signs Order Q 8-HR ASSESS Care 10/16/18 21:21 Active Z-Document. for Tele Applied ORDERED Care 10/16/18 21:21 Active Diabetic Diet Diet 10/16/18 21:[address] HEAD W/O CONTRAST [CT] Stat Exams 10/16/18 19:19 Completed FLAT/UPRIGHT ABD/1 VIEW CHEST [RAD] Stat Exams 10/16/18 21:25 Ordered A1C HGB W EST AVG GLUCOSE [CHEM] Routine Lab 10/16/18 19:50 Completed BASIC METABOLIC PANEL [CHEM] Routine Lab 10/17/18 06:00 Ordered CBC WITH DIFF [HEME] Routine Lab 10/17/18 06:00 Ordered CBC WITH ELECTRONIC DIFF [HEME] Stat Lab 10/16/18 19:50 Completed COMPREHENSIVE METABOLIC PANEL [CHEM] Stat Lab 10/16/18 19:50 Completed Cardiac Profile [CK PROFILE] [SP CHEM] Stat Lab 10/16/18 19:50 Completed TSH Routine Lab 10/17/18 06:00 Ordered UA NIMS W/REFLEX CULT [URINALYSIS] Stat Lab 10/16/18 21:29 Results 0.9% Sodium Chloride Inj [Ns] 1,000 ml Med 10/16/18 21:30 Active IV 75 mls/hr Acetaminophen [Tylenol] Med 10/16/18 21:21 Active 650 mg PO Q6H PRN PRN Acetaminophen [Tylenol] Med 10/16/18 21:21 Discontinued 650 mg PO Q6H PRN PRN Insulin Lispro [Humalog] Med 10/17/18 07:00 Active See Protocol SUBQ 0700,1100,1600,2100 Lorazepam [Ativan] Med 10/16/18 20:56 Active 1 mg IV Q4H PRN PRN Ondansetron [Zofran] Med 10/16/18 21:21 Discontinued 4 mg IV Q4-6H PRN PRN Ondansetron [Zofran] Med 10/16/18 21:21 Active 4 mg IV Q4H PRN PRN Potassium Chloride 20 Meq/Swi Med 10/16/18 21:02 Active 20 meq in 100 ml IV ONCE Telemetry [OM.EQ] Routine Oth 10/16/18 21:21 Active EKG [EKG] Stat Ther 10/16/18 19:57 Draft Transfer/Admit Order [TRANSFER] Routine Transfer 10/16/18 21:26 Ordered Patient has a neg CT and a serum k of 3.1. Spoke with Ron and patient will be admitted for evaluation of syncope Result Diagrams: 10/16/18 19:50 10/16/18 19:50 - EKG 1 Time of EKG reading by physician:: 19:05 EKG Read and Signed by:: Genoveva Bey EKG Interpretation (*Must complete 3 of following elements*): Normal Rate: 82 Rhythm: regular QRS: normal ND Interval: normal ST Wave: normal - CONSULTS/PCP/HOSPITALIST Notification #1 *Consult/PCP/Hospitalist*: Dr Velasquez - hospitalist Time Discussed: 20:50 Consult Disposition: Admit (Agrees to admit patient) - CHANGE OF SHIFT REPORT (ED Provider) 1 Report Given and Care Transferred to:: Dr. Ruelas Time of Transfer: 19:45 Items Pending: Labs, CT/MRI Results Departure - Departure Date of Disposition Decision: 10/16/18 Time of Disposition Decision: 21:10 DIAGNOSIS: Hypokalemia Syncope Qualifiers: Syncope type: unspecified Qualified Code(s): R55 - Syncope and collapse Disposition: ADMITTED INPATIENT 09 Certified Medical Emergency: Emergent Condition: Fair Additional Freetext Instructions: discussed with Dr Velasquez and pt will be admitted . Referrals and Follow-Ups: Rama Gilliland MD [Primary Care Provider] - - Critical Care Note This patient required my direct & personal management of CC.: Yes Total Time (mins): 60 Critical Care Statement: This patient required my direct personal management to treat or rule out processes, the absence of which, could potentiallly result in sudden, clinically significant life or limb threatening deterioration. Attestation - Physician/ DAILY Attestation Patient care was provided by Advanced Practice Provider:: No The physician spent face to face time with patient:: Yes Advanced Practice Provider documentation review:: Supervising physician onsite and consulted in the evaluation and care of this patient. The physician did have a face to face encounter with the patient. - NIH Stroke Scale Level of Consciousness: 0-Alert LOC Questions (ask month and age): 0-Answers Both Correctly LOC Commands (ask to open & close eyes;make a fist, let go): 0-Obeys Both Correctly Best Gaze (horizontal eye movement): 0-Normal Visual (use finger movement, counting or visual threat): 0-No Visual Loss Facial Palsy (show teeth or raise eyebrows & close eyes tght: 0-Symmetrical Movement Motor Function-left arm: 0-Normal Motor Function-right arm: 0-Normal Motor Function-left le-Normal Motor Function-right le-Normal Limb Ataxia(fqkhwo-ovik-izcllh, or heel to amor): 0-No Ataxia Sensory(pin prick to face,arms,trunk,legs-compare side/side): 0-No Ataxia Best Language(name item/read sentence.Ex-Down to Earth): 0-No Aphasia Dysarthria(Pt read words or say words Ex.Mama,Tip-Top,Thanks: 0-Normal Articulation Extinction and Inattention: 0-Normal Modified [place] Score Criteria: 0-no symptoms
[2018-10-16 20:13] LABS: BASO# 0.02 X1000 (0.0-0.2); BASO% 0.2 % (0.0-0.8); EOS# 0.02 X1000 (0.0-0.7); EOS% 0.2 % (0.0-10.0); HEMATOCRIT 34.7 % (42.0-52.0); HEMOGLOBIN 11.6 g/dL (14.0-18.0); IMM GRAN# 0.02 X1000 (0.0-0.04); IMM GRAN% 0.2 % (0.0-0.5); LYMPH# 1.68 X1000 (1.2-3.4); LYMPH% 17.8 % (20.5-51.1); MCHC 33.4 g/dL (33-37); MCV 92.8 FL (81-99); MONO# 0.79 X1000 (0.11-0.59); MONO% 8.4 % (1.7-9.3); MPV 9.5 FL (7.4-10.4); NEUT# 6.91 X1000 (1.4-6.5); NEUT% 73.2 % (42.2-75.2); PLT 279 X1000 (130-400); RBC 3.74 XMIL (4.7-6.1); WBC 9.44 X1000 (4.8-10.8)
[2018-10-16 20:23] LABS: AGAP 13; ALB/GLOB RATIO 1.2; ALBUMIN 4.1 g/dL (3.5-5.0); ALKALINE PHOSPHATASE 95 U/L (32-122); BUN 14 mg/dL (8-22); CALCIUM 9.4 mg/dL (8.8-10.2); CHLORIDE 99 mmol/L (98-107); CK PROFILE 94 U/L (24-204); COSMO 277; CREATININE 0.8 mg/dL (0.7-1.2); ESTIMATED GFR > 60; GLUCOSE 146 mg/dL (70-104); GOT 20 U/L (10-34); GPT 11 U/L (10-44); POTASSIUM 3.1 mmol/L (3.5-5.1); SODIUM 137 mmol/L (136-145); TCO2 25 mmol/L (25-35); TOTAL BILIRUBIN 0.43 mg/dL (0.20-1.00); TOTAL PROTEIN 7.5 g/dL (6.3-8.3)
--- NOTE | 2018-10-16 20:28 | EKG Report ---
Test Performed on : 10/16/2018 7:15:08 PM Test Reason : siezure like activity, possible syncopal episode. Blood Pressure : / mmHG Vent. Rate : 082 BPM Atrial Rate : 082 BPM P-R Int : 164 ms QRS Dur : 090 ms QT Int : 390 ms P-R-T Axes : 036 206 037 degrees QTc Int : 455 ms Normal sinus rhythm. Right superior axis deviation Right ventricular hypertrophy Abnormal ECG When compared with ECG of 23-MAR-2018 09:18, Questionable change in QRS axis T wave amplitude has increased in Lateral leads Unconfirmed Result
--- NOTE | 2018-10-16 20:33 | Diag Imaging Result Doc PS360 ---
EXAM: CT HEAD W/O CONTRAST 10/16/2018 HISTORY: seizure TECHNIQUE: This exam was performed using automated exposure control, adjustment of mA or kV according to patient size, and/or use of iterative reconstruction technique. COMMENT: There is encephalomalacia present in the posterior hemisphere on the left. Compared to the previous examination of 03/24/2018 this has not changed. There is no evidence of mass effect, bleed, or abnormal extra-axial fluid collection. There are air-fluid levels present in the maxillary sinuses and there is mucosal thickening particularly on the right. The ethmoid and frontal sinuses are clear. The calvarium is intact. There has been previous craniotomy in the posterior left parietal and occipital bones this was also the case previously. IMPRESSION: Stable CT of the head. Bilateral maxillary sinusitis. Electronically signed by Cristino Quinones 10/16/2018 8:31 PM
[2018-10-16] MEDS ORDERED: ATIVAN IV PRN (20:56)
[2018-10-16] MEDS ORDERED: POTASSIUM CHLORIDE 20 MEQ/SWI 20 MEQ/100 ML IVPB IV ONE (21:02)
[2018-10-16] MEDS ORDERED: TYLENOL PO PRN ×2 (21:21)
[2018-10-16] MEDS ORDERED: ZOFRAN IV PRN ×2 (21:21)
[2018-10-16 21:35] LABS: HEMOGLOBIN A1C 5.3 % (4.8-6.0)
[2018-10-16 21:38] LABS: URINE SOURCE CLEAN CATCH
[2018-10-16] MEDS: NS 1,000 ML IV SCH (21:51)
[2018-10-16 21:53] LABS: BILIRUBIN URINE NEGATIVE (NEGATIVE); BLOOD URINE NEGATIVE (NEGATIVE); COLOR YELLOW; GLUCOSE URINE NEGATIVE (NEGATIVE); KETONE URINE NEGATIVE (NEGATIVE); LEUKOCYTES URINE NEGATIVE (NEGATIVE); NITRITE URINE NEGATIVE (NEGATIVE); PH URINE 6.5; PROTEIN URINE 30 mg/dL (NEGATIVE); SP GRAVITY URINE 1.015; TURBIDITY URINE CLEAR (CLEAR); UROBILINOGEN URINE NORMAL (NORMAL)
[2018-10-16 21:54] LABS: UR EPITHELIAL CELLS <10 /HPF (<10); URINE BACTERIA NEGATIVE /HPF; URINE RBC <10 /HPF (<10); URINE WBC <10 /HPF (<10)
--- NOTE | 2018-10-16 22:03 | Diag Imaging Result Doc PS360 ---
EXAM: FLAT/UPRIGHT ABD/1 VIEW CHEST 10/16/2018 HISTORY: abd pain TECHNIQUE: Flat and upright abdomen with portable upright AP chest COMMENT: There is stool throughout the colon. There is no evidence of small bowel or gastric distention. There is no evidence for organomegaly or mass. The appearance of the chest has improved since 04/02/2018 and the pulmonary opacities which were present previously have resolved. The heart size and pulmonary vascularity are within normal limits. IMPRESSION: Constipation. Electronically signed by Cristino Quinones 10/16/2018 10:01 PM
[2018-10-16] MEDS ORDERED: NORCO-10 PO PRN (22:09)
[2018-10-16] MEDS ORDERED: AMBIEN PO PRN (22:09)
[2018-10-16] MEDS: XANAX PO PRN (23:01)
--- NOTE | 2018-10-17 02:41 | HISTORY AND PHYSICAL ---
CHIEF COMPLAINT: Seizure or syncope. HISTORY OF PRESENT ILLNESS: This is a 53-year-old male who has a past medical history of a prior brain abscess, hypertension, diabetes mellitus type 2 and hyperlipidemia who comes in after having a spell where he was sitting on the cough. It was witnessed by his mom and his brother. Apparently his eyes rolled back into his head and he did not respond for 2-3 minutes. There was no mention of any type of head trauma. He did not have any tonic-clonic type movements, did not lose continence of his bowel or bladder. He did have a time after he began responding again where the family felt that he was postictal or confused. However, the patient in the emergency room during my examination is alert and oriented x4. He has a somewhat odd affect and is very slow to respond. I believe this is related to his previous brain abscess and craniotomy. At any rate, he has not had any headache, abdominal complaints such as diarrhea, nausea or vomiting, urinary complaints. Denies any recent fever or sick family contacts. CT was obtained in the emergency room which was stable from previous exam. Again, he does have a remote history of a focal seizure, but he is not on any type of seizure medication at this time. He does take Xanax, I believe 4 times daily. He will be admitted for further evaluation and treatment. PAST MEDICAL HISTORY: Brain abscess, diverticulitis with colon resection, hypertension, diabetes mellitus type 2, hyperlipidemia. PREVIOUS SURGICAL HISTORY: Craniotomy, colon resection with ostomy placement and then ostomy takedown. SOCIAL HISTORY: Lives with his mom and his cat. Has a 66-wtrw-tegl history of smoking, continues to smoke around 1/2 to 1 pack of cigarettes per day. Smoking cessation was gone over with the patient and family. He does not want to quit at this time. Does have a history of alcohol abuse, no alcohol at this time. No history of illicit drugs. FAMILY HISTORY: Positive for hypertension and hyperlipidemia. ALLERGIES: No known drug allergies. HOME MEDICATIONS: I know that the patient takes Xanax and [place]. That was all that the family was able to tell me. An order was placed for Nursing to reconcile home medications in the computer. These will be restarted when appropriate. REVIEW OF SYSTEMS: A 14-point review of systems conducted with the patient. He denies complaints at this time. Pertinent positives listed above in the HPI. All other systems reviewed and negative. PHYSICAL EXAMINATION: VITAL SIGNS: Temperature 98.9 degrees, pulse 81, respirations 16, blood pressure 169/106, oxygen saturation 99% on room air. GENERAL: A 53-year-old male alert and oriented x4, lying in the ER stretcher. Has an odd affect and is slow to respond, but is pleasant, in no acute distress. HEENT: Head is atraumatic, normocephalic. Pupils equal, round and reactive to light. Extraocular eye movements intact. Sclerae are anicteric. Conjunctivae are pink. Oral mucosa is moist. NECK: Supple. No JVD. No thyromegaly. Trachea is midline. No cervical lymphadenopathy. CARDIAC: S1, S2 appreciated. No murmurs, gallops or rubs. LUNGS: Clear to auscultation bilaterally. No rhonchi, wheezes or rales. Symmetric rise and fall with respirations. ABDOMEN: Soft, nondistended, nontender. Area of old scarring noted below and around the umbilicus. No signs of infection. Bowel sounds present in all 4 quadrants. Normoactive. No pulsatile masses. No organomegaly. EXTREMITIES: No clubbing, cyanosis or edema; 2-plus pedal pulses bilaterally. Feet are somewhat cool to touch. GENITOURINARY: No bladder distention. Patient voids, otherwise deferred. NEUROLOGICAL: Slow to respond verbally. He is awake and alert, is oriented x3. Cranial nerves 2- 12 are grossly intact. DIAGNOSTIC DATA: CT of the head is stable from previous head CTs, did show encephalomalacia in the posterior hemisphere on the left. No acute findings. There was bilateral maxillary sinusitis. LABORATORY DATA: WBC 9.44, hemoglobin 11.6, hematocrit 34.7, platelet count 279,000. Sodium 137, potassium 3.1, chloride 99, carbon dioxide 25, BUN 14, creatinine 0.8, glucose 146. ASSESSMENT AND PLAN: 1. Syncope versus a focal seizure. The patient is back to his baseline in the emergency room. There has been no witnessed syncope or seizure activity. Will place the patient on observation status. Neuro checks. Check an MRI tomorrow morning. Does have a history of abscess. CT scan was within normal limits. Will add Ativan to the patient's medication profile to give for seizure activity. 2. Diabetes mellitus type 2 with hyperglycemia. Sliding scale insulin with fingerstick blood sugars. Diabetic diet. Check hemoglobin A1c. 3. Sinusitis. This was maxillary on the CT. Will treat with Levaquin. 4. Hypokalemia. Will treat with potassium chloride. Recheck tomorrow morning. Further recommendations per the patient's clinical course. Dictated by DENISE Cornejo for Pancho Velasquez MD cc: DENISE Cornejo Agree with the above. the following is my own face to face assessment. Patient with possible seizure episode. no tonic/clonic activity but was reportedly unresponsive for 2-3 minutes followed by an extended period of confusion which resolved very slowly. oriented but still slow at the time of my EDITOR IN CHIEF NEWSPAPER's exam. at the time of my exam he was had normal speech and cognition. no focal neurologic deficits. initial workup in the ED unremarkable. will obtain MRI head and likely EEG in the morning. NIRMALA
[2018-10-17] MEDS: XANAX PO PRN ×3 (05:01→17:08)
[2018-10-17 06:20] LABS: BASO# 0.03 X1000 (0.0-0.2); BASO% 0.4 % (0.0-0.8); EOS# 0.11 X1000 (0.0-0.7); EOS% 1.4 % (0.0-10.0); HEMATOCRIT 33.2 % (42.0-52.0); LYMPH# 2.64 X1000 (1.2-3.4); LYMPH% 33.8 % (20.5-51.1); MCH 30.7 PG (27-31); MCHC 33.1 g/dL (33-37); MCV 92.7 FL (81-99); MONO# 0.98 X1000 (0.11-0.59); MONO% 12.6 % (1.7-9.3); MPV 9.7 FL (7.4-10.4); NEUT# 4.04 X1000 (1.4-6.5); NEUT% 51.8 % (42.2-75.2); PLT 277 X1000 (130-400); RBC 3.58 XMIL (4.7-6.1); RDW 14.9 % (11.5-14.5)
[2018-10-17 06:41] LABS: AGAP 10; BUN 11 mg/dL (8-22); CALCIUM 9.4 mg/dL (8.8-10.2); CHLORIDE 101 mmol/L (98-107); COSMO 271; CREATININE 0.6 mg/dL (0.7-1.2); ESTIMATED GFR > 60; GLUCOSE 123 mg/dL (70-104); SODIUM 135 mmol/L (136-145); TCO2 24 mmol/L (25-35)
[2018-10-17] MEDS: HUMALOG SUBQ SCH ×2 (06:41→11:30)
[2018-10-17] MEDS ORDERED: PRILOSEC PO SCH (07:00)
[2018-10-17] MEDS ORDERED: KLOR-CON PO ONE (08:09)
[2018-10-17] MEDS ORDERED: LEVAQUIN PO SCH (09:00)
[2018-10-17] MEDS ORDERED: ASPIRIN PO SCH (09:00)
[2018-10-17] MEDS ORDERED: MIRALAX PO SCH (09:00)
[2018-10-17] MEDS ORDERED: CYMBALTA PO SCH (09:00)
--- NOTE | 2018-10-17 10:34 | Diag Imaging Result Doc PS360 ---
MRI BRAIN W/O CONTRAST - 10/16/2018 INDICATION: syncope? seizure, hx of abscess COMPARISON: 10/16/2017, 01/29/2013 FINDINGS: There is no area of restricted diffusion. Stable large area of old encephalomalacia at the posterior left cerebral hemisphere. There are old craniectomy changes overlying this location. No intracranial mass or hemorrhage. There are a few tiny foci of periventricular cerebral white matter hyperintensity compatible with mild chronic microvascular ischemia. Midline structures are unremarkable. IMPRESSION: No change from prior exams. Electronically signed by Isaias Starr 10/17/2018 10:32 AM
[2018-10-17] MEDS: NS 1,000 ML IV SCH (10:39)
[2018-10-17 12:25] VITALS: BP 147/84
--- NOTE | 2018-10-17 14:19 | PROGRESS NOTE ---
DATE: 10/17/2018 SUBJECTIVE: The patient is resting comfortably in bed. He denies having any chest pain, shortness of breath, headache, or dizziness at this time. OBJECTIVE: Vital Signs: Temperature 98.2 degrees, blood pressure 147/84, heart rate 93, respirations 18, O2 saturation is 100% on room air. General: This is a chronically ill-appearing elderly male, lying in bed in no acute distress. Heart: S1, S2 normal. Regular rate and rhythm. Lungs: Clear to auscultation bilaterally. Abdomen: Positive bowel sounds. Soft, nontender, nondistended. Extremities: No edema, no cyanosis. Neurologic: The patient is alert and oriented x3. DIAGNOSTIC STUDIES: Sodium 135, potassium 3, chloride 101, CO2 of 24, BUN 11, creatinine 0.6, glucose 123. Brain MRI: Unchanged. No acute finding. ASSESSMENT AND PLAN: 1. Syncope. No further syncopal episodes have been witnessed in the hospital. Also, the patient has not exhibited any seizure activity. The brain MRI does not reveal any new findings. We will continue to monitor the patient on telemetry. We will order an echocardiogram and carotid duplex studies. 2. Anxiety disorder. Continue on Xanax. 3. Hypertension. We will start the patient on Norvasc. 4. Deep vein thrombosis prophylaxis. We will start the patient on Lovenox. cc: Terrie Figueroa MD
--- NOTE | 2018-10-17 18:46 | ECHO REPORT ---
ORDER DATE: 10/17/2018 INDICATION: Syncope. M-MODE MEASUREMENTS: Left ventricle end diastole: 4.0. Left ventricle end systole: 2.8. Posterior wall: 1/1. Interventricular septum: 1.0. Left atrium: 3.4. Aortic diameter: 3.6. SUMMARY OF 2-DIMENSIONAL IMAGIN. The study was somewhat difficult. Optison was added to optimize visualization of the endocardium. 2. Left ventricular function appears to be normal. Ejection fraction is estimated at about 60%. No wall motion abnormality noted. 3. The right ventricle appears to be grossly normal. 4. The atria appear to be normal. 5. The mitral annulus shows mild calcification. 6. Pulsed wave Doppler of mitral inflow shows an abnormal filling pattern suggesting that the patient may be in atrial flutter. 7. Diastolic function could not be properly evaluated with that particular filling pattern. 8. The tricuspid valve is unremarkable. Pulmonary pressure is probably normal. 9. The aortic valve opens normally. Color flow mapping unremarkable. 10.The pulmonic valve appears to be grossly within normal range, although it was not well visualized. 11.There is no pericardial effusion. No mass, no thrombus. SUMMARY: This study shows: 1. Preserved left ventricular systolic function. 2. No evidence of significant valvular abnormality, although the pulmonic valve was not well visualized. 3. No pulmonary hypertension. 4. No pericardial effusion. 5. Diastolic function cannot be appropriately evaluated here. 6. Optison was used. cc: MD Terrie Scott MD
--- NOTE | 2018-10-17 19:24 | CONSULTATION ---
DATE OF CONSULTATION: 10/17/2018 REASON FOR CONSULT: Syncope versus seizure. HISTORY OF PRESENT ILLNESS: This is a 53-year-old male who was admitted with question of syncope versus seizure. History is from the patient and chart review. The patient tells me he had been pretty upset recently with the anniversary of the of a family member. He was sitting on the couch, talking with his mother, and he recalls feeling as though he began to hyperventilate, though he is not certain he actually did so. He felt faint but is not certain that he actually ever passed out. Notes indicates that his eyes rolled back, and he was not responding for about 3 minutes. Notes indicate there was no shaking or incontinence. Family felt that he was a bit confused after the event. EMS was called and he was brought to the emergency room for evaluation. The patient takes Xanax for many years now for anxiety. He typically takes it 3 or 4 times a day, but sometimes he may not take it that much. 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 More recently he had diverticulitis with colon resection. He lives with his mother. There is a question of seizures back in 2012. He had been on Keppra initially and did not tolerate that. He was on Depakote and did not tolerate that. He was then on phenobarbital and also did not tolerate that. He has not been on seizure medications for a long time now. PAST MEDICAL HISTORY: Brain abscess, managed surgically; diverticulitis with colon resection; hypertension; diabetes; hyperlipidemia; anxiety; question of seizures in 2012. FAMILY HISTORY: Positive for hypertension. No seizures. SOCIAL HISTORY: He lives with his mother. He smokes. He has a history of alcohol abuse, none currently. No illicit drugs. ALLERGIES: No known drug allergies. MEDICATIONS: Home medications include Xanax and [place]. REVIEW OF SYSTEMS: Balance of 12 was conducted and is otherwise negative except that detailed in the HPI. PHYSICAL EXAMINATION: Vital signs: Afebrile. Blood pressure 147/84, pulse 80s to 90s. Respirations 18, 100% on room air. Mr. Berg is supine in bed, appeared to be resting comfortably when I entered the room. He was easily awakened. He remained attentive. He is oriented, follows simple and complex commands. Speech is fluent. No dysarthria or language disturbance. Pupils are equal, round and reactive. Gaze conjugate. Ocular movements full. Face symmetric with equal activation. Facial sensation intact. Tongue is midline. Palate elevates symmetrically. Shoulder shrug is full. No drift. Strength is preserved in the arms and legs. Reflexes 1+ at the biceps and knees bilaterally. No clonus. Plantar response is silent. Finger- to-nose and rapid alternating movements preserved. DIAGNOSTIC DATA: MRI of the brain noncontrast performed 10/16/2018: No acute findings. There is old encephalomalacia at the posterior left cerebral hemisphere and an old craniotomy overlying this location. Head CT noncontrast on admission: Stable. LABORATORY DATA: Normal white count. Sodium 135, BUN 11, creatinine 0.6. Blood sugars 120 to 140s. No toxicology. ASSESSMENT AND PLAN: Transient sensation of feeling faint, apparently with associated decreased responsiveness. Uncertain etiology. Possibilities include anxiety, presyncope or partial seizure. I recommended an EEG, though the patient declined at this time. Agree with workup as you are doing, and agree with telemetry. Thank you for the consultation. cc: Batsheva Blackwell MD
--- NOTE | 2018-10-19 16:18 | Carotid Study ---
DATE: 10/17/2018 REFERRING PHYSICIAN: Terrie Figueroa MD READING PHYSICIAN: Osbaldo Quintanilla MD CARTOONIST SPECIAL EFFECTS: Brian Calderon [facility] INDICATION: Syncope and altered mental status. FINDINGS: There was minimal atherosclerotic change in the carotid systems bilaterally. There was antegrade vertebral flow. There were no stenoses or turbulent flow appreciated. The percent stenosis is 0 to 39% bilaterally, and overall this is an unremarkable carotid imaging study. cc: MD Terrie Isabel MD
--- NOTE | 2018-10-20 19:19 | DISCHARGE SUMMARY ---
ADMISSION DATE: 10/16/2018 DISCHARGE DATE: 10/17/2018 FINAL DISCHARGE DIAGNOSES: 1. Syncope. 2. Anxiety disorder. 3. Hypertension. 4. Gastroesophageal reflux disease. CONSULTATIONS: Neurology consultation with Dr. Shaw. IMAGIN. Head CT which revealed maxillary sinusitis. 2. Brain MRI which revealed chronic microvascular ischemia. 3. Carotid Doppler study which revealed 0 to 39 percent stenosis. HOSPITAL COURSE: Mr. Berg is a 53-year-old male who presented to the ER after having a syncopal episode at home. Upon arrival to the ER a head CT was done that did not reveal any acute findings. The patient was admitted and started on IV fluids and his blood pressure was monitored closely. The patient was seen by the neurologist and MRI of the brain was done that did not reveal any acute findings. The patient was able to ambulate without any difficulty. There were no abnormalities seen on telemetry while the patient was monitored in the hospital. The patient had a carotid duplex study that was noted to be unremarkable. Also an echocardiogram was done that revealed an ejection fraction of 60%. DISCHARGE MEDICATIONS: 1. Prilosec 20 mg p.o. daily. 2. Aspirin 81 mg p.o. daily. 3. Melatonin 3 mg oral at bedtime. 4. Xanax 1 mg oral every 6 hours p.r.n. for anxiety. 5. Cinnamon 500 mg oral daily. 6. Cymbalta 120 mg oral daily. 7. Folic acid 1 mg oral daily. 8. Multivitamin 1 tab oral daily. 9. Ambien 10 mg oral at bedtime p.r.n. for sleep. DISCHARGE INSTRUCTIONS: Patient will need to follow up with his primary care physician in 1 week. cc: Terrie Figueroa MD
== END 2018-10-17 18:09 | disposition home or self-care (01) ==
LOC: SUPCPDRO → ED 18:21 → 4N 18:21 → SUATTDRO 22:02
PROVIDERS: ATTEND Internal Medicine